=== PATIENT | male | born 1945 | race Caucasian/White ===

== ENCOUNTER → 2017-06-14 | Outpatient (CLI) | payer MEDICARE, MEDICAID, SELFPAY | PROVIDERS: Family Provider Family Medicine; Visit Provider Internal Medicine | DX: R60.9 Edema, unspecified (principal); I25.10 Atherosclerotic heart disease of native coronary artery without angina pectoris; R94.31 Abnormal electrocardiogram [ECG] [EKG] | CPT/HCPCS: 93306 ==

== ENCOUNTER 2017-07-06 22:48 | Emergency (ER) | payer MEDICARE, MEDICAID, SELFPAY ==
[2017-07-06 22:49] VITALS: BP 134/74; PULSE 97; RESP 18; TEMP 36.8; O2SAT 97; BMI 28.1
--- NOTE | 2017-07-06 22:59 | XR_ITS ---
XR chest 2V HISTORY: ITS.REASON: chest pain ORDERING PHYSICIAN: Zaid Jimenez MD PATIENT AGE: 71 years COMPARISON: Multiple previous exams FINDINGS: Mild cardiomegaly without failure.. There are increased markings in the left lung base posteriorly consistent atelectasis and/or infiltrate. The remaining lungs are clear. There is a bone plate over the lower cervical spine.. No acute bony abnormalities. IMPRESSION: Left basilar airspace disease with mild cardiomegaly
[2017-07-06 23:12] LABS: Basophils # 0.1 K/mm3 (0-0.2); Basophils % 0.4 % (0.1-2.0); Eosinophils # 0.1 K/mm3 (0.0-0.4); Eosinophils % 0.9 % (0.1-12.0); Hematocrit 31.6 % (42.0-52.0); Hemoglobin 10.3 g/dL (14.1-18.0); Lymphocytes # 1.5 K/mm3 (0.7-4.5); Lymphocytes % 9.7 K/mm3 (10-50); Mean Corpuscular HGB Conc 32.7 g/dL (31.8-35.4); Mean Corpuscular Hemoglobin 30.7 pg (27.0-31.2); Mean Corpuscular Volume 93.8 fl (80-94); Mean Platelet Volume 8.6 fl (7.4-10.4); Monocytes # 1.2 K/mm3 (0.1-1.0); Monocytes % 7.8 % (1.7-9.3); Neutrophils # 12.5 K/mm3 (1.8-7.8); Neutrophils % 81.2 % (37.0-80.0); Platelet Count 408 K/mm3 (142-424); Red Blood Count 3.37 M/mm3 (4.60-6.20); Red Cell Distribution Width 15.4 % (11.5-17.5); White Blood Count 15.4 K/mm3 (4.8-10.8)
[2017-07-06 23:15] LABS: MANUAL DIFFERENTIAL MANUAL DIFFERENTIAL (MANUAL DIFF)
[2017-07-06 23:30] LABS: Blood Urea Nitrogen 39 mg/dL (7-18); Carbon Dioxide 26 mmol/L (21.0-32.0); Chloride 100 mmol/L (98-107); Creatinine Clearance Estimated 38 mL/min (0-300); Creatinine,Serum 2.04 mg/dL (0.70-1.30); Estimated Glomerular Filt Rate 32 ml/min (>60); GFR (African American) 39 ML/MIN (>60); Glucose 178 mg/dL (74-106); Sodium 135 mmol/L (136-145); Troponin I < 0.02 ng/ml (0.00-0.06)
[2017-07-06 23:47] VITALS: BP 130/68; PULSE 88; RESP 17; O2SAT 95
--- NOTE | 2017-07-07 00:32 | HMH.EDCP ---
ED Disposition Clinical Impression: Stable angina, Renal insufficiency Disposition: Home, Self-Care Condition on Discharge: Good Instructions: DI for Angina Additional Instructions: recheck if needed and see card in and and keep appt with dr pineda as planned Referrals: Rayshawn Pineda MD [Primary Care Provider] - - Critical Care Critical Care Time: No Attestation: On 07/06/17, the high probability of a clinically significant, sudden or life threatening deterioration of the following system(s) required my full and direct attention, intervention and personal management. The time I documented below is in addition to time spent performing reported procedures but includes the following listed in this critical care notation. Medical Decision Making - Medical Records Medical records reviewed: Yes: I reviewed the patient's medical records. Vital Signs: 07/06/17 22:49 07/06/17 23:47 Temperature 98.2 F Temperature Source Oral Pulse Rate [Left Radial] 97 H 88 Respiratory Rate 18 17 Blood Pressure [Right Arm] 134/74 130/68 Blood Pressure Mean [Right Arm] 94 88 Blood Pressure Source [Right Arm] Automatic Cuff Automatic Cuff Blood Pressure Position [Right Arm] Supine Sitting 02 Sat by Pulse Oximetry 97 95 Oxygen Delivery Method Room Air Room Air - Lab Data Lab results reviewed: Yes: I reviewed the patient's lab results. Lab Results 07/06/17 23:05: WBC 15.4 H, RBC 3.37 L, Hgb 10.3 L, Hct 31.6 L, MCV 93.8, MCH 30.7, MCHC 32.7, RDW 15.4, Plt Count 408, MPV 8.6, Neut % (Auto) 81.2 H, Lymph % (Auto) 9.7 L, [place] % (Auto) 7.8, Eos % (Auto) 0.9, Baso % (Auto) 0.4, Neut # (Auto) 12.5 H, Lymph # (Auto) 1.5, [place] # (Auto) 1.2 H, Eos # (Auto) 0.1, Baso # (Auto) 0.1, Total Counted 100, Neutrophils % (Manual) 78 H, Lymphocytes % (Manual) 16, Monocytes % (Manual) 2, Eosinophils % (Manual) 4 H, Platelet Estimate Normal, Anisocytosis 1+ 07/06/17 23:05: Sodium 135 L, Potassium 4.0, Chloride 100, Carbon Dioxide 26, Anion Gap 13.0, BUN 39 H, Creatinine 2.04 H, Estimated Creat Clear 38, Estimated GFR 32 L, Est GFR ( Amer) 39 L, Glucose 178 H, Troponin I < 0.02 Result diagrams: 07/06/17 23:05 07/06/17 23:05 Orders (Tests/Meds): ED MEDICATIONS Discontinued Medications Generic Name Dose Route Start Last Admin Trade Name Freq PRN Reason Stop Dose Admin Aspirin 324 mg 07/06/17 22:58 07/06/17 23:36 Aspirin 81mg Chewable Tablet PO 07/06/17 22:59 324 mg ONCE ONE Administration Nitroglycerin 0.4 mg 07/06/17 22:58 Nitrostat 0.4mg Sl Tablet SL 07/07/17 22:59 [id number] PRN Chest Pain ORDERS Category Date Time Status XR chest 2V Stat Exams 07/06/17 22:59 Taken ECG Request by /Shital Stat Y 07/06/17 22:59 Ordered - Radiology Data #1 Image(s): Chest Image Reviewed: Yes I reviewed the patient's radiology image Preliminary Findings: Abnormal (chronic changes ) - ECG Data Tracing #1 I reviewed this ECG and interpreted as documented below: Ischemic changes: non-specific ST-T wave changes - Physician Consults Physician Consulted: won Reason -: Pt condition - Levon Inquiry Pt receiving controlled substance: No Chest Pain HPI - General Chief Complaint: Chest Pain Stated Complaint: chest pain Time Seen by Provider: 07/07/17 00:32 Mode of Arrival: Ambulatory Source of Information: Patient, Relative, Medical Record Limitations: No Limitations Description of Symptoms (Recalled from ER Triage Doc. by RN): left chest pain - History of Present Illness HPI narrative: pt with known ht dis with several episodes of chest pain today -last stent august 2016 complaint: chest pain indicative of cardiac Onset (ago): hour(s) Duration: intermittent Pain location: left chest Severity: similar to previous episodes Quality: sharp Relieving factors: nothing Risk Factors for CAD: Diabetes Treatments prior to or on arrival for Cardiac Chest Pain: none - Related Data P
[2017-07-07 00:39] LABS: Eosinophils % 4 % (0-3); Lymphocytes % 16 % (10-50); Monocytes % 2 % (2-9); Neutrophils % 78 % (42-76); Platelet Estimate Normal; Total Cells Counted 100
--- NOTE | 2017-07-07 00:39 | ED_ITS ---
ED Disposition Clinical Impression: Stable angina, Renal insufficiency Disposition: Home, Self-Care Condition on Discharge: Good Instructions: DI for Angina Additional Instructions: recheck if needed and see card in and and keep appt with dr pineda as planned Referrals: Rayshawn Pineda MD [Primary Care Provider] - - Critical Care Critical Care Time: No Attestation: On 07/06/17, the high probability of a clinically significant, sudden or life threatening deterioration of the following system(s) required my full and direct attention, intervention and personal management. The time I documented below is in addition to time spent performing reported procedures but includes the following listed in this critical care notation. Medical Decision Making - Medical Records Medical records reviewed: Yes: I reviewed the patient's medical records. Vital Signs: 07/06/17 22:49 07/06/17 23:47 Temperature 98.2 F Temperature Source Oral Pulse Rate [Left Radial] 97 H 88 Respiratory Rate 18 17 Blood Pressure [Right Arm] 134/74 130/68 Blood Pressure Mean [Right Arm] 94 88 Blood Pressure Source [Right Arm] Automatic Cuff Automatic Cuff Blood Pressure Position [Right Arm] Supine Sitting 02 Sat by Pulse Oximetry 97 95 Oxygen Delivery Method Room Air Room Air - Lab Data Lab results reviewed: Yes: I reviewed the patient's lab results. Lab Results 07/06/17 23:05: WBC 15.4 H, RBC 3.37 L, Hgb 10.3 L, Hct 31.6 L, MCV 93.8, MCH 30.7, MCHC 32.7, RDW 15.4, Plt Count 408, MPV 8.6, Neut % (Auto) 81.2 H, Lymph % (Auto) 9.7 L, [place] % (Auto) 7.8, Eos % (Auto) 0.9, Baso % (Auto) 0.4, Neut # ( Auto) 12.5 H, Lymph # (Auto) 1.5, [place] # (Auto) 1.2 H, Eos # (Auto) 0.1, Baso # (Auto) 0.1, Total Counted 100, Neutrophils % (Manual) 78 H, Lymphocytes % ( Manual) 16, Monocytes % (Manual) 2, Eosinophils % (Manual) 4 H, Platelet Estimate Normal, Anisocytosis 1+ 07/06/17 23:05: Sodium 135 L, Potassium 4.0, Chloride 100, Carbon Dioxide 26, Anion Gap 13.0, BUN 39 H, Creatinine 2.04 H, Estimated Creat Clear 38, Estimated GFR 32 L, Est GFR ( Amer) 39 L, Glucose 178 H, Troponin I < 0.02 Result diagrams: 07/06/17 23:05 07/06/17 23:05 Orders (Tests/Meds): ED MEDICATIONS Discontinued Medications Generic Name Dose Route Start Last Admin Trade Name Freq PRN Reason Stop Dose Admin Aspirin 324 mg 07/06/17 22:58 07/06/17 23:36 Aspirin 81mg Chewable Tablet PO 07/06/17 22:59 324 mg ONCE ONE Administration Nitroglycerin 0.4 mg 07/06/17 22:58 Nitrostat 0.4mg Sl Tablet SL 07/07/17 22:59 [id number] PRN Chest Pain ORDERS Category Date Time Status XR chest 2V Stat Exams 07/06/17 22:59 Taken ECG Request by /Shital Stat Y 07/06/17 22:59 Ordered - Radiology Data #1 Image(s): Chest Image Reviewed: Yes I reviewed the patient's radiology image Preliminary Findings: Abnormal (chronic changes ) - ECG Data Tracing #1 I reviewed this ECG and interpreted as documented below: Ischemic changes: non-specific ST-T wave changes - Physician Consults Physician Consulted: won Reason -: Pt condition - Levon Inquiry Pt receiving controlled substance: No Chest Pain HPI - General Chief Complaint: Chest Pain Stated Complaint: chest pain Time Seen by Provider:
[2017-07-07 00:40] LABS: Anisocytosis 1+
[2017-07-07 00:51] VITALS: BP 138/73; PULSE 96; RESP 24; O2SAT 98
== END 2017-07-07 01:07 | disposition home or self-care (01) ==
PROVIDERS: Emergency Provider Emergency Medicine; Family Provider Family Medicine; PCP Family Medicine
DX: R07.9 Chest pain, unspecified (principal); I20.8 Other forms of angina pectoris; I10 Essential (primary) hypertension; Z87.891 Personal history of nicotine dependence; E11.65 Type 2 diabetes mellitus with hyperglycemia; Z79.84 Long term (current) use of oral hypoglycemic drugs; Z79.899 Other long term (current) drug therapy; Z88.8 Allergy status to other drugs, medicaments and biological substances
CPT/HCPCS: 71046; 80048; 84484; 85007; 85025; 93005; 93041; 99284

== ENCOUNTER → 2017-07-15 11:00 | Outpatient (CLI) | payer MEDICARE, MEDICAID, SELFPAY ==
[2017-07-15 16:55] LABS: Basophils # 0.1 K/mm3 (0-0.2); Basophils % 0.7 % (0.1-2.0); Eosinophils # 0.2 K/mm3 (0.0-0.4); Eosinophils % 1.6 % (0.1-12.0); Hematocrit 33.8 % (42.0-52.0); Hemoglobin 10.8 g/dL (14.1-18.0); Lymphocytes # 1.7 K/mm3 (0.7-4.5); Lymphocytes % 16.2 K/mm3 (10-50); Mean Corpuscular Hemoglobin 30.3 pg (27.0-31.2); Mean Corpuscular Volume 94.8 fl (80-94); Mean Platelet Volume 7.2 fl (7.4-10.4); Monocytes # 0.8 K/mm3 (0.1-1.0); Monocytes % 7.6 % (1.7-9.3); Neutrophils # 7.8 K/mm3 (1.8-7.8); Neutrophils % 73.8 % (37.0-80.0); Platelet Count 607 K/mm3 (142-424); Red Blood Count 3.57 M/mm3 (4.60-6.20); Red Cell Distribution Width 15.1 % (11.5-17.5); White Blood Count 10.5 K/mm3 (4.8-10.8)
== END ==
PROVIDERS: Visit Provider Surgery
DX: K92.2 Gastrointestinal hemorrhage, unspecified (principal)
CPT/HCPCS: 85025

== ENCOUNTER → 2017-07-15 15:02 | Outpatient (CLI) | payer MEDICARE, MEDICAID, SELFPAY | PROVIDERS: PCP Family Medicine; Visit Provider Surgery | DX: K92.2 Gastrointestinal hemorrhage, unspecified (principal) ==

== ENCOUNTER 2017-08-06 08:53 | Observation (INO) | payer MEDICARE, MEDICAID, SELFPAY ==
[2017-08-06] VITALS (9 sets, daily range): BP systolic 91–143; BP diastolic 49–91; PULSE 84–100; RESP 12–20; TEMP 36.6–36.7; O2SAT 95–98; BMI 25.2; BMI 27.1
--- NOTE | 2017-08-06 09:05 | CT_ITS ---
CT abdomen pelvis wo con CLINICAL INDICATION: ITS.REASON: rectal bleeding with LLQ tenderness ORDERING PHYSICIAN: Ga Burns MD PATIENT AGE: 72 years COMPARISON: 05/13/2017 TECHNIQUE: Axial images obtained with sagittal and coronal reformats. PROCEDURE: Oral Contrast: None IV Contrast: None . FINDINGS: Chronic changes in the left lung base. There is mild thickening of the pericardium. Coronary artery calcifications are present. No focal liver lesion. Left lobe of the liver is somewhat prominent. No calcified gallstones. The spleen, adrenal glands, and pancreas show no acute finding. There are scattered calcifications in the pancreas suggesting chronic pancreatitis. Right renal cyst once again noted. There are bilateral renal calcifications which are felt to be vascular. No hydronephrosis. 2 cm left renal cyst. There is mild stranding of perinephric renal fat bilaterally which is nonspecific. No intestinal obstruction or free air is evident. No evidence of diverticulitis or appendicitis. Hyperdensity is present within the appendix and could be related to prior contrast administration or appendicoliths. No appendiceal inflammation however apparent. Urinary bladder has an unremarkable appearance. No pelvic mass focal inflammatory change or abnormal fluid collection. Degenerative change lumbar spine. IMPRESSION: 1. No acute abdominal or pelvic findings. 2. Bilateral renal cysts unchanged. 3. Coronary artery disease with mild thickening of the pericardium
--- NOTE | 2017-08-06 09:08 | HMH.EDGIBL ---
ED Disposition Clinical Impression: Rectal bleeding, External hemorrhoids, Coagulopathy, Hemorrhoids CAD (coronary artery disease) Qualifiers: Associated angina: without angina GI bleeding Qualifiers: GI bleed type/associated pathology: unspecified gastrointestinal hemorrhage type Qualified Code(s): K92.2 - Gastrointestinal hemorrhage, unspecified Disposition: Home, Self-Care Condition on Discharge: Good Additional Instructions: I called Dr. Jimenez who agreed to admit for Dr. Tinsley. I called Dr. Garcia who agreed to stop his Effient. The patient and his daughter are agreeable for admission. Referrals: Rayshawn Tinsley MD [Primary Care Provider] - - Critical Care Critical Care Time: No Attestation: On , the high probability of a clinically significant, sudden or life threatening deterioration of the following system(s) required my full and direct attention, intervention and personal management. The time I documented below is in addition to time spent performing reported procedures but includes the following listed in this critical care notation. Medical Decision Making - Medical Records Medical records reviewed: Yes: I reviewed the patient's medical records. MR Comment: I reviewed his prior labs and his hemoglobin in June was 10, his creatinine was above two, although I would like to scan him with IV contrast but this will shut down his kidney. Vital Signs: 08/06/17 08:57 08/06/17 09:32 08/06/17 09:46 Temperature Source Oral Pulse Rate [Orthostatic Lying Right Brachial] 95 H Pulse Rate [Orthostatic Sitting Right Brachial] 100 H Pulse Rate [Orthostatic Standing Right Brachial] 99 H Pulse Rate [Right Brachial] 95 H 98 H Respiratory Rate 14 14 Blood Pressure [Orthostatic Lying Right Arm] 139/72 Blood Pressure [Orthostatic Sitting Right Arm] 137/66 Blood Pressure [Orthostatic Standing Right Arm] 130/59 Blood Pressure [Right Arm] 139/72 143/91 Blood Pressure Mean [Right Arm] 94 108 Blood Pressure Source [Right Arm] Automatic Cuff Automatic Cuff Blood Pressure Position [Right Arm] Sitting Sitting 02 Sat by Pulse Oximetry 98 98 Oxygen Delivery Method Room Air Room Air 08/06/17 10:04 08/06/17 10:54 Temperature Source Pulse Rate [Orthostatic Lying Right Brachial] Pulse Rate [Orthostatic Sitting Right Brachial] Pulse Rate [Orthostatic Standing Right Brachial] Pulse Rate [Right Brachial] 87 88 Respiratory Rate 14 12 Blood Pressure [Orthostatic Lying Right Arm] Blood Pressure [Orthostatic Sitting Right Arm] Blood Pressure [Orthostatic Standing Right Arm] Blood Pressure [Right Arm] 91/49 100/64 Blood Pressure Mean [Right Arm] 63 76 Blood Pressure Source [Right Arm] Automatic Cuff Manual Cuff/ Auscultation Blood Pressure Position [Right Arm] Supine Sitting 02 Sat by Pulse Oximetry 95 96 Oxygen Delivery Method Room Air Room Air The patient had negative orthostatics. - Lab Data Lab Results 08/06/17 09:05: Stool Occult Blood Positive A 08/06/17 09:23: WBC 12.5 H, RBC 4.03 L, Hgb 12.2 L, Hct 38.2 L, MCV 94.8 H, MCH 30.2, MCHC 31.9, RDW 15.6, Plt Count 287, MPV 8.1, Neut % (Auto) 64.6, Lymph % (Auto) 21.5, [place] % (Auto) 10.0 H, Eos % (Auto) 3.5, Baso % (Auto) 0.4, Neut # (Auto) 8.1 H, Lymph # (Auto) 2.7, [place] # (Auto) 1.2 H, Eos # (Auto) 0.4, Baso # (Auto) 0.1 08/06/17 09:23: PT 10.7, INR 0.99, APTT 27.7 08/06/17 09:23: Sodium 138, Potassium 4.0, Chloride 100, Carbon Dioxide 23, Anion Gap 19.0 H, BUN 40 H, Creatinine 2.34 H, Estimated Creat Clear 33, Estimated GFR 27 L, Est GFR ( Amer) 33 L, Glucose 126 H, Calcium 9.1, Total Bilirubin 0.4, AST 21, ALT 49, Alkaline Phosphatase 119 H, Total Protein 8.0, Albumin 3.9, Globulin 4.1 H, Albumin/Globulin Ratio 1.0 L 08/06/17 09:23: Magnesium 1.8 Result diagrams: 08/06/17 09:23 08/06/17 09:23 Orders (Tests/Meds): ED MEDICATIONS Discontinued Medications Generic Name Dose Route Start Last Admin Trade Name Freq
--- NOTE | 2017-08-06 09:13 | ED_ITS ---
ED Disposition Clinical Impression: Rectal bleeding, External hemorrhoids, Coagulopathy, Hemorrhoids CAD (coronary artery disease) Qualifiers: Associated angina: without angina GI bleeding Qualifiers: GI bleed type/associated pathology: unspecified gastrointestinal hemorrhage type Qualified Code(s): K92.2 - Gastrointestinal hemorrhage, unspecified Disposition: Home, Self-Care Condition on Discharge: Good Additional Instructions: I called Dr. Jimenez who agreed to admit for Dr. Tinsley. I called Dr. Garcia who agreed to stop his Effient. The patient and his daughter are agreeable for admission. Referrals: Ryashawn Tinsley MD [Primary Care Provider] - - Critical Care Critical Care Time: No Attestation: On , the high probability of a clinically significant, sudden or life threatening deterioration of the following system(s) required my full and direct attention, intervention and personal management. The time I documented below is in addition to time spent performing reported procedures but includes the following listed in this critical care notation. Medical Decision Making - Medical Records Medical records reviewed: Yes: I reviewed the patient's medical records. MR Comment: I reviewed his prior labs and his hemoglobin in June was 10, his creatinine was above two, although I would like to scan him with IV contrast but this will shut down his kidney. Vital Signs: 08/06/17 08:57 08/06/17 09:32 08/06/17 09:46 Temperature Source Oral Pulse Rate [Orthostatic Lying Right Brachial] 95 H Pulse Rate [Orthostatic Sitting Right Brachial] 100 H Pulse Rate [Orthostatic Standing Right Brachial] 99 H Pulse Rate [Right Brachial] 95 H 98 H Respiratory Rate 14 14 Blood Pressure [Orthostatic Lying Right Arm] 139/72 Blood Pressure [Orthostatic Sitting Right Arm] 137/66 Blood Pressure [Orthostatic Standing Right Arm] 130/59 Blood Pressure [Right Arm] 139/72 143/91 Blood Pressure Mean [Right Arm] 94 108 Blood Pressure Source [Right Arm] Automatic Cuff Automatic Cuff Blood Pressure Position [Right Arm] Sitting Sitting 02 Sat by Pulse Oximetry 98 98 Oxygen Delivery Method Room Air Room Air 08/06/17 10:04 08/06/17 10:54 Temperature Source Pulse Rate [Orthostatic Lying Right Brachial] Pulse Rate [Orthostatic Sitting Right Brachial] Pulse Rate [Orthostatic Standing Right Brachial] Pulse Rate [Right Brachial] 87 88 Respiratory Rate 14 12 Blood Pressure [Orthostatic Lying Right Arm] Blood Pressure [Orthostatic Sitting Right Arm] Blood Pressure [Orthostatic Standing Right Arm] Blood Pressure [Right Arm] 91/49 100/64 Blood Pressure Mean [Right Arm] 63 76 Blood Pressure Source [Right Arm] Automatic Cuff Manual Cuff/ Auscultation Blood Pressure Position [Right Arm] Supine Sitting 02 Sat by Pulse Oximetry 95 96 Oxygen Delivery Method Room Air Room Air The patient had negative orthostatics. - Lab Data Lab Results 08/06/17 09:05: Stool Occult Blood Positive A 08/06/17 09:23: WBC 12.5 H, RBC 4.03 L, Hgb 12.2 L, Hct 38.2 L, MCV 94.8 H, MCH 30.2, MCHC 31.9, RDW 15.6, Plt Count 287, MPV 8.1, Neut % (Auto) 64.6, Lymph % ( Auto) 21.5, [place] % (Auto) 10.0 H, Eos % (Auto) 3.5, Baso % (Auto) 0.4, Neut # ( Auto) 8.1 H, Lymph # (Auto) 2.7, [place] # (Auto) 1.2 H, Eos # (Auto) 0.4, Baso # ( Auto) 0.1 08/06/17
[2017-08-06 09:20] LABS: Occult Blood,Stool Positive (Negative)
[2017-08-06 09:32] LABS: Basophils # 0.1 K/mm3 (0-0.2); Basophils % 0.4 % (0.1-2.0); Eosinophils # 0.4 K/mm3 (0.0-0.4); Eosinophils % 3.5 % (0.1-12.0); Hematocrit 38.2 % (42.0-52.0); Hemoglobin 12.2 g/dL (14.1-18.0); Lymphocytes # 2.7 K/mm3 (0.7-4.5); Lymphocytes % 21.5 K/mm3 (10-50); Mean Corpuscular HGB Conc 31.9 g/dL (31.8-35.4); Mean Corpuscular Hemoglobin 30.2 pg (27.0-31.2); Mean Corpuscular Volume 94.8 fl (80-94); Mean Platelet Volume 8.1 fl (7.4-10.4); Monocytes # 1.2 K/mm3 (0.1-1.0); Neutrophils # 8.1 K/mm3 (1.8-7.8); Neutrophils % 64.6 % (37.0-80.0); Platelet Count 287 K/mm3 (142-424); Red Blood Count 4.03 M/mm3 (4.60-6.20); Red Cell Distribution Width 15.6 % (11.5-17.5); White Blood Count 12.5 K/mm3 (4.8-10.8)
--- NOTE | 2017-08-06 09:33 | PC.NURSE ---
chris rocha with [facility]. no contrast to be used
[2017-08-06 09:42] LABS: Activated Partial Thrombo Time 27.7 seconds (23.6-34.0); INR 0.99 (0.9-1.1); Prothrombin Time 10.7 seconds (9.4-11.8)
[2017-08-06 09:47] LABS: Alanine Aminotransferase 49 U/L (12-78); Albumin Level 3.9 gm/dL (3.4-5.0); Alkaline Phosphatase 119 U/L (46-116); Bilirubin,Total 0.4 mg/dL (0.2-1.0); Blood Urea Nitrogen 40 mg/dL (7-18); Calcium 9.1 mg/dL (8.5-10.1); Carbon Dioxide 23 mmol/L (21.0-32.0); Chloride 100 mmol/L (98-107); Creatinine Clearance Estimated 33 mL/min (0-300); Creatinine,Serum 2.34 mg/dL (0.70-1.30); Estimated Glomerular Filt Rate 27 ml/min (>60); GFR (African American) 33 ML/MIN (>60); Globulin 4.1 gm/dl (1.3-3.2); Glucose 126 mg/dL (74-106); Sodium 138 mmol/L (136-145)
[2017-08-06 09:50] LABS: Aspartate Amino Transferase 21 U/L (15-37)
[2017-08-06 10:13] LABS: Magnesium 1.8 mg/dL (1.4-2.2)
[2017-08-06 15:43] LABS: Hemoglobin 10.9 g/dL (14.1-18.0)
[2017-08-06 16:38] LABS: Microscopic, Urine URINE MICROSCOPIC (MICROSCOPIC)
[2017-08-06 17:04] LABS: Appearance,Urine CLEAR (Clear); Bilirubin,Urine Negative (Negative); Blood, Urine Negative (Negative); Color,Urine YELLOW (Yellow); Glucose,Urine (UA) Negative (Negative); Ketones,Urine Negative (Negative); Leukocyte Esterase,Urine Negative (Negative); Nitrate,Urine Negative (Negative); PH,Urine 5.5 (5.0-8.5); Protein,Urine Negative (Negative); Urobilinogen,Urine 0.2 EU/dl (0.2)
[2017-08-06 17:24] LABS: Bacteria,Urine Trace /lpf
[2017-08-07 04:00] VITALS: BP 105/54; PULSE 88; RESP 18; TEMP 36.6; O2SAT 94
--- NOTE | 2017-08-07 04:47 | PC.NURSE ---
PT WITH SOME COMPLAINTS EARLY IN SHIFT OF RLQ ABD PAIN THAT HE DESCRIBED SHARP. ENCOURAGE AMBULATION AND TURNING TO OPPOSITE SIDE. PAIN RESOLVED. PT HAD BM THAT WAS LOOSE AND GREENISH IN COLOR. SMALL AMOUNT OF BRIGHT RED BLOOD NOTED IN TOILET. PT HAS SLEPT INTERMITTENTLY. FAMILY MEMBER HAS REMAINED AT [facility]. PT KEPT NPO AFTER MIDNIGHT FOR CONSULT.
[2017-08-07 06:24] LABS: Basophils % 0.3 % (0.1-2.0); Eosinophils # 0.4 K/mm3 (0.0-0.4); Eosinophils % 4.3 % (0.1-12.0); Hemoglobin 10.5 g/dL (14.1-18.0); Lymphocytes # 1.6 K/mm3 (0.7-4.5); Lymphocytes % 19.6 K/mm3 (10-50); Mean Corpuscular HGB Conc 32.7 g/dL (31.8-35.4); Mean Corpuscular Hemoglobin 30.7 pg (27.0-31.2); Mean Platelet Volume 7.8 fl (7.4-10.4); Monocytes # 0.9 K/mm3 (0.1-1.0); Monocytes % 10.9 % (1.7-9.3); Neutrophils # 5.4 K/mm3 (1.8-7.8); Platelet Count 240 K/mm3 (142-424); Red Blood Count 3.41 M/mm3 (4.60-6.20); Red Cell Distribution Width 15.5 % (11.5-17.5); White Blood Count 8.2 K/mm3 (4.8-10.8)
[2017-08-07 06:34] LABS: Anion Gap 14.5 mEq/L (5-15); Blood Urea Nitrogen 27 mg/dL (7-18); Carbon Dioxide 22 mmol/L (21.0-32.0); Chloride 106 mmol/L (98-107); Creatinine Clearance Estimated 45 mL/min (0-300); Creatinine,Serum 1.65 mg/dL (0.70-1.30); Estimated Glomerular Filt Rate 41 ml/min (>60); GFR (African American) 50 ML/MIN (>60); Potassium 3.5 mmoL/L (3.5-5.1); Sodium 139 mmol/L (136-145)
[2017-08-07 07:03] LABS: Glucose 82 mg/dL (74-106)
[2017-08-07 08:00] VITALS: BP 122/64; PULSE 85; RESP 20; TEMP 36.8; O2SAT 96
--- NOTE | 2017-08-07 08:17 | HMH.HP ---
*Admission Date: 08/06/17 *Chief complaint: Lower GI bleeding *History of present illness: 32-year-old male with history of coronary artery disease, peripheral vascular disease, diabetes and GI bleeds presented to the emergency department after onset of bright red blood per rectum during the day. Patient reports diarrhea for the preceding 3 days. Blood would not fill the toilet bowl but was present within the toilet water and was also present on the toilet tissue after wiping. Patient has known internal and external hemorrhoids and most recent colonoscopy was at the end of April. Patient had serial H&H's performed on the emergency department which showed a decrease in the H&H and he was admitted for further observation. He reports one normal stool since admission and one bloody stool since admission. He denies lightheadedness or weakness. He admits to some abdominal discomfort and hunger [facility] History Medical History: Reports:: Chronic Obstructive Pulmonary Disease (COPD), Diabetes Mellitus Type 2, Gastroesophageal Reflux Disease(GERD), Gastrointestinal Bleed, Hypertension, Seizures Denies:: Cancer, Diabetes Mellitus Type 1, MRSA Other Medical History: Reports: Anemia Comment: Internal and external hemorrhoids Amputation: No Fractures: No Comment: Cervical spine surgery - *Social History Educational Level: Completed High School Smoking Status: Former smoker Alcohol Intake: never Alcohol Intake Frequency:: other Substance Use Type: denies use - Psychiatric History Expresses thoughts of harming self/others: None Suicide Plan Description: No Plan *Family Hx:: Hypertension, Diabetes Review of Systems - Review of Systems Review of systems:: pertinent systems reviewed and negative unless documented below - Constitutional Denies body ache(s), Denies chills - *Cardiovascular Denies chest pain, Denies chest pain at rest, Denies chest pain with activity - *Respiratory Denies change in phlegm color, Denies chest congestion, Denies cough - *Gastrointestinal Reports abdominal pain, Reports bloating, Reports change in stools, Denies belching Meds Home Medications Medication Instructions Recorded Confirmed Type Atorvastatin Calcium [Atorvastatin 80 mg PO DAILY 07/06/17 08/06/17 History 80mg Tab] [place] Chloride [Urecholine] 10 mg PO TID 07/06/17 08/06/17 History Cholecalciferol (Vitamin D3) 1,000 unit PO DAILY 07/06/17 08/06/17 History [Vitamin D3 1,000 Unit Cap] Cyclobenzaprine HCl 10 mg PO DAILY 07/06/17 08/06/17 History [Cyclobenzaprine 10mg Tab] Dexlansoprazole [Dexilant] 1 tab PO DAILY 07/06/17 08/06/17 History Docusate Sodium [Colace] 100 mg PO DAILY 07/06/17 08/06/17 History Furosemide [Furosemide 20mg Tab] 1 tab PO DAILY 07/06/17 08/06/17 History Glimepiride 1 mg PO DAILY 07/06/17 08/06/17 History Linaclotide [Linzess] 1 cap PO DAILY 07/06/17 08/06/17 History Lisinopril/Hydrochlorothiazide 2 tab PO DAILY 07/06/17 08/06/17 History [Lisinopril-Hctz 20-12.5 mg Tab] One Daily Complete 1 tab PO DAILY 07/06/17 08/06/17 History Prasugrel HCl [Prasugrel 10mg 10 mg PO DAILY 07/06/17 08/06/17 History Tab] Sucralfate [Sucralfate 1gm 1 tab PO QID 07/06/17 08/06/17 History Tab] Tamsulosin HCl [Flomax 0.4mg 1 tab PO DAILY 07/06/17 08/06/17 History capsule] levETIRAcetam [Levetiracetam] 0.5 tab PO BID 07/06/17 08/06/17 History Hydrocodone/Acetaminophen 1 each PO TID 08/06/17 08/06/17 History [Hydrocodon-Acetaminoph 7.5-325] Allergies Allergy/AdvReac Type Severity Reaction Status Date / Time baclofen Allergy Severe SWELLING Verified 07/19/17 09:07 gabapentin [From NEURONTIN] Allergy Mild Verified 07/19/17 09:07 metformin [METFORMIN] Allergy Mild Verified 07/19/17 09:07 morphine [MORPHINE] Allergy Mild Verified 07/19/17 09:07 Exam Vital signs and Labs for Last 24 Hours: Temp Pulse Resp BP Pulse Ox 97.9 F 88 18 105/54 94 L 08/07/17 04:00 08/07/17 04:00 02
--- NOTE | 2017-08-07 08:20 | P.HP_ITS ---
*Admission Date: 08/06/17 *Chief complaint: Lower GI bleeding *History of present illness: 32-year-old male with history of coronary artery disease, peripheral vascular disease, diabetes and GI bleeds presented to the emergency department after onset of bright red blood per rectum during the day. Patient reports diarrhea for the preceding 3 days. Blood would not fill the toilet bowl but was present within the toilet water and was also present on the toilet tissue after wiping. Patient has known internal and external hemorrhoids and most recent colonoscopy was at the end of April. Patient had serial H&H's performed on the emergency department which showed a decrease in the H&H and he was admitted for further observation. He reports one normal stool since admission and one bloody stool since admission. He denies lightheadedness or weakness. He admits to some abdominal discomfort and hunger [facility] History Medical History: Reports:: Chronic Obstructive Pulmonary Disease (COPD), Diabetes Mellitus Type 2, Gastroesophageal Reflux Disease(GERD), Gastrointestinal Bleed, Hypertension, Seizures Denies:: Cancer, Diabetes Mellitus Type 1, MRSA Other Medical History: Reports: Anemia Comment: Internal and external hemorrhoids Amputation: No Fractures: No Comment: Cervical spine surgery - *Social History Educational Level: Completed High School Smoking Status: Former smoker Alcohol Intake: never Alcohol Intake Frequency:: other Substance Use Type: denies use - Psychiatric History Expresses thoughts of harming self/others: None Suicide Plan Description: No Plan *Family Hx:: Hypertension, Diabetes Review of Systems - Review of Systems Review of systems:: pertinent systems reviewed and negative unless documented below - Constitutional Denies body ache(s), Denies chills - *Cardiovascular Denies chest pain, Denies chest pain at rest, Denies chest pain with activity - *Respiratory Denies change in phlegm color, Denies chest congestion, Denies cough - *Gastrointestinal Reports abdominal pain, Reports bloating, Reports change in stools, Denies belching Meds Home Medications Medication Instructions Recorded Confirmed Type Atorvastatin Calcium [Atorvastatin 80 mg PO DAILY 07/06/17 08/06/17 History 80mg Tab] [place] Chloride [Urecholine] 10 mg PO TID 07/06/17 08/06/17 History Cholecalciferol (Vitamin D3) 1,000 unit PO DAILY 07/06/17 08/06/17 History [Vitamin D3 1,000 Unit Cap] Cyclobenzaprine HCl 10 mg PO DAILY 07/06/17 08/06/17 History [Cyclobenzaprine 10mg Tab] Dexlansoprazole [Dexilant] 1 tab PO DAILY 07/06/17 08/06/17 History Docusate Sodium [Colace] 100 mg PO DAILY 07/06/17 08/06/17 History Furosemide [Furosemide 20mg Tab] 1 tab PO DAILY 07/06/17 08/06/17 History Glimepiride 1 mg PO DAILY 07/06/17 08/06/17 History Linaclotide [Linzess] 1 cap PO DAILY 07/06/17 08/06/17 History Lisinopril/Hydrochlorothiazide 2 tab PO DAILY 07/06/17 08/06/17 History [Lisinopril-Hctz 20-12.5 mg Tab] One Daily Complete 1 tab PO DAILY 07/06/17 08/06/17 History Prasugrel HCl [Prasugrel 10mg 10 mg PO DAILY 07/06/17 08/06/17 History Tab] Sucralfate [Sucralfate 1gm 1 tab PO QID 07/06/17 08/06/17 History Tab] Tamsulosin HCl [Flomax 0.4mg 1 tab PO DAILY 07/06/17 08/06/17 History capsule] levETIRAcetam [Levetiracetam] 0.5 tab PO BID 07/06/17 08/06/17 History Hydrocodone/Acetaminophen 1 each PO TID 08/06/17 08/06/17 History [[place]
--- NOTE | 2017-08-07 08:33 | HMH.GSCON ---
*Admission Date: 08/06/17 *Chief complaint: Blood in stool *History of present illness: This is a 72-year-old gentleman seen in consultation after presenting to the emergency department with bright red blood per rectum. He presented to the emergency department after onset of bright red blood per rectum during the day. He reports diarrhea for the preceding 3 days. Blood would not fill the toilet bowl but was present within the toilet water and was also present on the toilet tissue after wiping. He has known internal and external hemorrhoids and most recent colonoscopy was at the end of April. Patient had serial H&H's performed on the emergency department which showed a decrease in the H&H and he was admitted for further observation. He reports one normal stool since admission and one bloody stool since admission. He denies lightheadedness or weakness. He admits to some abdominal discomfort and hunger Review of Systems - Constitutional Denies fever(s) - Eyes Denies change in vision - ENT Denies dizziness - *Cardiovascular Denies chest pain - *Respiratory Denies cough - *Gastrointestinal Reports bright, red blood in stools, Denies vomiting [facility] History Medical History: Reports:: Chronic Obstructive Pulmonary Disease (COPD), Diabetes Mellitus Type 2, Gastroesophageal Reflux Disease(GERD), Gastrointestinal Bleed, Hypertension, Seizures Denies:: Cancer, Diabetes Mellitus Type 1, MRSA Other Medical History: Reports: Anemia Amputation: No Fractures: No - *Social History Educational Level: Completed High School Smoking Status: Former smoker Alcohol Intake: never Alcohol Intake Frequency:: other Substance Use Type: denies use - Psychiatric History Expresses thoughts of harming self/others: None Suicide Plan Description: No Plan *Family Hx:: Hypertension, Diabetes Meds Home Medications Medication Instructions Recorded Confirmed Type Atorvastatin Calcium [Atorvastatin 80 mg PO DAILY 07/06/17 08/06/17 History 80mg Tab] Bethanechol Chloride [Urecholine] 10 mg PO TID 07/06/17 08/06/17 History Cholecalciferol (Vitamin D3) 1,000 unit PO DAILY 07/06/17 08/06/17 History [Vitamin D3 1,000 Unit Cap] Cyclobenzaprine HCl 10 mg PO DAILY 07/06/17 08/06/17 History [Cyclobenzaprine 10mg Tab] Dexlansoprazole [Dexilant] 1 tab PO DAILY 07/06/17 08/06/17 History Docusate Sodium [Colace] 100 mg PO DAILY 07/06/17 08/06/17 History Furosemide [Furosemide 20mg Tab] 1 tab PO DAILY 07/06/17 08/06/17 History Glimepiride 1 mg PO DAILY 07/06/17 08/06/17 History Linaclotide [Linzess] 1 cap PO DAILY 07/06/17 08/06/17 History Lisinopril/Hydrochlorothiazide 2 tab PO DAILY 07/06/17 08/06/17 History [Lisinopril-Hctz 20-12.5 mg Tab] One Daily Complete 1 tab PO DAILY 07/06/17 08/06/17 History Prasugrel HCl [Prasugrel 10mg 10 mg PO DAILY 07/06/17 08/06/17 History Tab] Sucralfate [Sucralfate 1gm 1 tab PO QID 07/06/17 08/06/17 History Tab] Tamsulosin HCl [Flomax 0.4mg 1 tab PO DAILY 07/06/17 08/06/17 History capsule] levETIRAcetam [Levetiracetam] 0.5 tab PO BID 07/06/17 08/06/17 History Hydrocodone/Acetaminophen 1 each PO TID 08/06/17 08/06/17 History [Hydrocodon-Acetaminoph 7.5-325] Allergies Allergy/AdvReac Type Severity Reaction Status Date / Time baclofen Allergy Severe SWELLING Verified 07/19/17 09:07 gabapentin [From NEURONTIN] Allergy Mild Verified 07/19/17 09:07 metformin [METFORMIN] Allergy Mild Verified 07/19/17 09:07 morphine [MORPHINE] Allergy Mild Verified 07/19/17 09:07 Exam Vital signs and Labs for Last 24 Hours: Temp Pulse Resp BP Pulse Ox 97.9 F 88 18 105/54 94 L 08/07/17 04:00 08/07/17 04:00 08/07/17 04:00 08/07/17 04:00 08/07/17 04:00 Laboratory Results - last 24 hr 08/06/17 11:25: Blood Type A Negative, Antibody Screen Negative, Crossmatch (AHG) See Detail 08/06/17 15:22: Hgb 10.9 L D, Hct 34.0 L 08/06/17 16:00: Urine Color Yellow, Urine Appearance
--- NOTE | 2017-08-07 08:36 | P.CONS_ITS ---
*Admission Date: 08/06/17 *Chief complaint: Blood in stool *History of present illness: This is a 72-year-old gentleman seen in consultation after presenting to the emergency department with bright red blood per rectum. He presented to the emergency department after onset of bright red blood per rectum during the day. He reports diarrhea for the preceding 3 days. Blood would not fill the toilet bowl but was present within the toilet water and was also present on the toilet tissue after wiping. He has known internal and external hemorrhoids and most recent colonoscopy was at the end of April. Patient had serial H&H's performed on the emergency department which showed a decrease in the H&H and he was admitted for further observation. He reports one normal stool since admission and one bloody stool since admission. He denies lightheadedness or weakness. He admits to some abdominal discomfort and hunger Review of Systems - Constitutional Denies fever(s) - Eyes Denies change in vision - ENT Denies dizziness - *Cardiovascular Denies chest pain - *Respiratory Denies cough - *Gastrointestinal Reports bright, red blood in stools, Denies vomiting [facility] History Medical History: Reports:: Chronic Obstructive Pulmonary Disease (COPD), Diabetes Mellitus Type 2, Gastroesophageal Reflux Disease(GERD), Gastrointestinal Bleed, Hypertension, Seizures Denies:: Cancer, Diabetes Mellitus Type 1, MRSA Other Medical History: Reports: Anemia Amputation: No Fractures: No - *Social History Educational Level: Completed High School Smoking Status: Former smoker Alcohol Intake: never Alcohol Intake Frequency:: other Substance Use Type: denies use - Psychiatric History Expresses thoughts of harming self/others: None Suicide Plan Description: No Plan *Family Hx:: Hypertension, Diabetes Meds Home Medications Medication Instructions Recorded Confirmed Type Atorvastatin Calcium [Atorvastatin 80 mg PO DAILY 07/06/17 08/06/17 History 80mg Tab] Bethanechol Chloride [Urecholine] 10 mg PO TID 07/06/17 08/06/17 History Cholecalciferol (Vitamin D3) 1,000 unit PO DAILY 07/06/17 08/06/17 History [Vitamin D3 1,000 Unit Cap] Cyclobenzaprine HCl 10 mg PO DAILY 07/06/17 08/06/17 History [Cyclobenzaprine 10mg Tab] Dexlansoprazole [Dexilant] 1 tab PO DAILY 07/06/17 08/06/17 History Docusate Sodium [Colace] 100 mg PO DAILY 07/06/17 08/06/17 History Furosemide [Furosemide 20mg Tab] 1 tab PO DAILY 07/06/17 08/06/17 History Glimepiride 1 mg PO DAILY 07/06/17 08/06/17 History Linaclotide [Linzess] 1 cap PO DAILY 07/06/17 08/06/17 History Lisinopril/Hydrochlorothiazide 2 tab PO DAILY 07/06/17 08/06/17 History [Lisinopril-Hctz 20-12.5 mg Tab] One Daily Complete 1 tab PO DAILY 07/06/17 08/06/17 History Prasugrel HCl [Prasugrel 10mg 10 mg PO DAILY 07/06/17 08/06/17 History Tab] Sucralfate [Sucralfate 1gm 1 tab PO QID 07/06/17 08/06/17 History Tab] Tamsulosin HCl [Flomax 0.4mg 1 tab PO DAILY 07/06/17 08/06/17 History capsule] levETIRAcetam [Levetiracetam] 0.5 tab PO BID 07/06/17 08/06/17 History Hydrocodone/Acetaminophen 1 each PO TID 08/06/17 08/06/17 History [Hydrocodon-Acetaminoph 7.5-325] Allergies Allergy/AdvReac Type Severity Reaction Status Date / Time baclofen Allergy Severe SWELLING Verified 07/19/17 09:07 gabapentin [From NEURONTIN] All
--- NOTE | 2017-08-07 09:23 | PC.NURSE ---
CALLED PATIENTS DAUGHTER SEPTEMBER AND ASKED HER TO BRING PATIENTS HOME MEDS SINCE PATIENT IS MEDICARE OBS - SHE WILL BRING THEM IN THIS AM SOMETIME
--- NOTE | 2017-08-07 09:41 | P.CONPHA_ITS ---
[facility] Pharm[facility] VTE Monitoring - Patient Demographics Admission date: 08/07/17 Report Date: 08/07/17 Time: 09:41 Allergies/Adverse Reactions: Patient Allergies baclofen Allergy (Severe, Verified 07/19/17 09:07) SWELLING gabapentin [From NEURONTIN] Allergy (Mild, Verified 07/19/17 09:07) metformin [METFORMIN] Allergy (Mild, Verified 07/19/17 09:07) morphine [MORPHINE] Allergy (Mild, Verified 07/19/17 09:07) Height: 1.73 m Weight: 80.768 kg Patient Problems: Current Active Problems Rectal bleeding (Acute) External hemorrhoids (Acute) Coagulopathy (Acute) CAD (coronary artery disease) (Acute) Hemorrhoids (Acute) GI bleeding (Acute) Lower GI bleed (Acute) - VTE Risk Labs: VTE Related Lab Results Hgb 10.5 g/dL (14.1-18.0) L 08/07/17 06:00 Hct 32.0 % (42.0-52.0) L 08/07/17 06:00 Plt Count 240 K/mm3 (142-424) 08/07/17 06:00 PT 10.7 seconds (9.4-11.8) 08/06/17 09:23 INR 0.99 (0.9-1.1) 08/06/17 09:23 APTT 27.7 seconds (23.6-34.0) 08/06/17 09:23 BUN 27 mg/dL (7-18) H D 08/07/17 06:00 Creatinine 1.65 mg/dL (0.70-1.30) H D 08/07/17 06:00 Estimated Creat Clear 45 mL/min (0-300) 08/07/17 06:00 VTE Score: 1 VTE Risk Level: Very Low Risk - Prophylaxis Types of VTE Prophylaxis: Not Applicable Location of Applied Device: Not Applicable - VTE Diagnosis Confirmed Comment: ALEXANDRA UMAÑA
[2017-08-07 15:43] VITALS: BP 97/49; PULSE 90; RESP 20; TEMP 36.9; O2SAT 98
[2017-08-07 16:18] LABS: Hematocrit 32.2 % (42.0-52.0); Hemoglobin 10.5 g/dL (14.1-18.0)
--- NOTE | 2017-08-07 18:26 | PC.NURSE ---
PATIENT HAS BEEN SITTING IN CHAIR VISITING WITH FAMILY THIS SHIFT. HE HAS BEEN AMBULATING TO AND FROM THE BATHROOM WITH NO ASSISTANCE. C/O CHRONIC PAIN IN HIS RIGHT SHOULDER AND OCCASIONAL PAIN AND CRAMPING IN HIS RIGHT LOWER ABDOMEN. HE HAS NO GAURDING OF ABDOMEN. TEDS ARE IN PLACE AT THIS TIME. PATIENT STATES HE IS STILL HAVING SOME BRIGHT RED BLEEDING ON TOILET PAPER WHEN HE IS USING THE RESTROOM. CALL LIGHT WITHIN REACH WILL CONTINUE TO MONITOR.
--- NOTE | 2017-08-07 19:58 | PC.NURSE ---
REPORT GIVEN TO HARLEY ZAMORA RN
[2017-08-07 20:00] VITALS: BP 112/66; PULSE 88; RESP 20; TEMP 36.4; O2SAT 98
[2017-08-08 04:00] VITALS: BP 92/50; PULSE 84; RESP 18; TEMP 36.8; O2SAT 96
--- NOTE | 2017-08-08 04:44 | PC.NURSE ---
PT HAS SLEPT. NO COMPLAINTS. DAUGHTER HAS REMAINED AT [facility].
[2017-08-08 07:09] LABS: Basophils # 0.1 K/mm3 (0-0.2); Basophils % 0.7 % (0.1-2.0); Eosinophils # 0.4 K/mm3 (0.0-0.4); Hematocrit 32.6 % (42.0-52.0); Hemoglobin 10.4 g/dL (14.1-18.0); Lymphocytes % 23.5 K/mm3 (10-50); Mean Corpuscular HGB Conc 31.8 g/dL (31.8-35.4); Mean Corpuscular Hemoglobin 30.1 pg (27.0-31.2); Mean Corpuscular Volume 94.5 fl (80-94); Mean Platelet Volume 8.3 fl (7.4-10.4); Monocytes # 0.9 K/mm3 (0.1-1.0); Monocytes % 10.1 % (1.7-9.3); Neutrophils # 5.1 K/mm3 (1.8-7.8); Neutrophils % 60.7 % (37.0-80.0); Platelet Count 220 K/mm3 (142-424); Red Blood Count 3.45 M/mm3 (4.60-6.20); Red Cell Distribution Width 15.6 % (11.5-17.5); White Blood Count 8.5 K/mm3 (4.8-10.8)
[2017-08-08 07:14] LABS: Anion Gap 13.7 mEq/L (5-15); Blood Urea Nitrogen 27 mg/dL (7-18); Carbon Dioxide 25 mmol/L (21.0-32.0); Chloride 104 mmol/L (98-107); Creatinine Clearance Estimated 40 mL/min (0-300); Creatinine,Serum 1.87 mg/dL (0.70-1.30); Estimated Glomerular Filt Rate 35 ml/min (>60); GFR (African American) 43 ML/MIN (>60); Glucose 90 mg/dL (74-106); Potassium 3.7 mmoL/L (3.5-5.1); Sodium 139 mmol/L (136-145)
--- NOTE | 2017-08-08 07:20 | HMH.DCSUM ---
General - General Admission date: 08/06/17 Discharge date: 08/08/17 HPI HPI: This is a 72-year-old gentleman seen in consultation after presenting to the emergency department with bright red blood per rectum. He presented to the emergency department after onset of bright red blood per rectum during the day. He reports diarrhea for the preceding 3 days. Blood would not fill the toilet bowl but was present within the toilet water and was also present on the toilet tissue after wiping. He has known internal and external hemorrhoids and most recent colonoscopy was at the end of April. Patient had serial H&H's performed on the emergency department which showed a decrease in the H&H and he was admitted for further observation. He reports one normal stool since admission and one bloody stool since admission. He denies lightheadedness or weakness. He admits to some abdominal discomfort and hunger Objective Vital signs: Temp Pulse Resp BP Pulse Ox 98.2 F 84 18 92/50 96 08/08/17 04:00 08/08/17 04:00 08/08/17 04:00 08/08/17 04:00 08/08/17 04:00 Narrative: Patient is awake and alert. Abdomen is soft and distended with active bowel sounds. Hospital Course Hospital Course: Patient was admitted for monitoring of H&H is. After initial presentation with hemoglobin of 12-1/2 he received IV fluids. Hemoglobin dropped to 10-1/2 and remained at this level for the rest of hospitalization. Actually believe the patient was dehydrated on admission due to his diarrhea and was therefore hemoconcentrated. His creatinine was significantly elevated at 2.5. Once he received IV fluids he returned to his baseline. Hemoglobin performed 3 weeks ago was 10.8. Because Dr. Charlton is familiar with the patient he was consulted as he performed his colonoscopy 3 months ago. He believed the source of bleeding was hemorrhoids as this was the only significant finding on colonoscopy. It was recommended that perhaps the patient should see a level vial inspector due to his ongoing GI issues which not only include hemorrhoids but irregular bowel habits, abdominal bloating, cramping. Dr. Carey was consulted on the day of discharge. Patient was discharged after consultation Results Labs on day of discharge: Labs from last 24 hours 08/08/17 08/07/17 06:15 16:07 WBC 8.5 RBC 3.45 L Hgb 10.4 L 10.5 L Hct 32.6 L 32.2 L MCV 94.5 H MCH 30.1 MCHC 31.8 RDW 15.6 Plt Count 220 MPV 8.3 Neut % (Auto) 60.7 Lymph % (Auto) 23.5 [place] % (Auto) 10.1 H Eos % (Auto) 5.0 Baso % (Auto) 0.7 Neut # (Auto) 5.1 Lymph # (Auto) 2.0 Grant # (Auto) 0.9 Eos # (Auto) 0.4 Baso # (Auto) 0.1 Laboratory Results - last 72 hr 08/06/17 08/06/17 08/06/17 09:05 09:23 09:23 WBC 12.5 H RBC 4.03 L Hgb 12.2 L Hct 38.2 L MCV 94.8 H MCH 30.2 MCHC 31.9 RDW 15.6 Plt Count 287 MPV 8.1 Neut % (Auto) 64.6 Lymph % (Auto) 21.5 Grant % (Auto) 10.0 H Eos % (Auto) 3.5 Baso % (Auto) 0.4 Neut # (Auto) 8.1 H Lymph # (Auto) 2.7 Grant # (Auto) 1.2 H Eos # (Auto) 0.4 Baso # (Auto) 0.1 PT 10.7 INR 0.99 APTT 27.7 Sodium Potassium Chloride Carbon Dioxide Anion Gap BUN Creatinine Estimated Creat Clear Estimated GFR Est GFR ( Amer) Glucose Calcium Magnesium Total Bilirubin AST ALT Alkaline Phosphatase Total Protein Albumin Globulin Albumin/Globulin Ratio Urine Color Urine Appearance Urine pH Ur Specific [place] Urine Protein Urine Glucose (UA) Urine Ketones Urine Blood Urine Nitrate Urine Bilirubin Urine Urobilinogen Ur Leukocyte Esterase Urine Bacteria Stool Occult Blood Positive A Blood Type Antibody Screen Crossmatch (AHG) 08/06/17 08/06/17 08/06/17 09:23 09:23 11:25 WBC RBC Hgb Hct
--- NOTE | 2017-08-08 07:23 | P.DS_ITS ---
General - General Admission date: 08/06/17 Discharge date: 08/08/17 HPI HPI: This is a 72-year-old gentleman seen in consultation after presenting to the emergency department with bright red blood per rectum. He presented to the emergency department after onset of bright red blood per rectum during the day. He reports diarrhea for the preceding 3 days. Blood would not fill the toilet bowl but was present within the toilet water and was also present on the toilet tissue after wiping. He has known internal and external hemorrhoids and most recent colonoscopy was at the end of April. Patient had serial H&H's performed on the emergency department which showed a decrease in the H&H and he was admitted for further observation. He reports one normal stool since admission and one bloody stool since admission. He denies lightheadedness or weakness. He admits to some abdominal discomfort and hunger Objective Vital signs: Temp Pulse Resp BP Pulse Ox 98.2 F 84 18 92/50 96 08/08/17 04:00 08/08/17 04:00 08/08/17 04:00 08/08/17 04:00 08/08/17 04:00 Narrative: Patient is awake and alert. Abdomen is soft and distended with active bowel sounds. Hospital Course Hospital Course: Patient was admitted for monitoring of H&H is. After initial presentation with hemoglobin of 12-1/2 he received IV fluids. Hemoglobin dropped to 10-1/2 and remained at this level for the rest of hospitalization. Actually believe the patient was dehydrated on admission due to his diarrhea and was therefore hemoconcentrated. His creatinine was significantly elevated at 2.5. Once he received IV fluids he returned to his baseline. Hemoglobin performed 3 weeks ago was 10.8. Because Dr. Charlton is familiar with the patient he was consulted as he performed his colonoscopy 3 months ago. He believed the source of bleeding was hemorrhoids as this was the only significant finding on colonoscopy. It was recommended that perhaps the patient should see a town planner due to his ongoing GI issues which not only include hemorrhoids but irregular bowel habits, abdominal bloating, cramping. Dr. Carey was consulted on the day of discharge. Patient was discharged after consultation Results Labs on day of discharge: Labs from last 24 hours 08/08/17 08/07/17 06:15 16:07 WBC 8.5 RBC 3.45 L Hgb 10.4 L 10.5 L Hct 32.6 L 32.2 L MCV 94.5 H MCH 30.1 MCHC 31.8 RDW 15.6 Plt Count 220 MPV 8.3 Neut % (Auto) 60.7 Lymph % (Auto) 23.5 [place] % (Auto) 10.1 H Eos % (Auto) 5.0 Baso % (Auto) 0.7 Neut # (Auto) 5.1 Lymph # (Auto) 2.0 [place] # (Auto) 0.9 Eos # (Auto) 0.4 Baso # (Auto) 0.1 Laboratory Results - last 72 hr 08/06/17 08/06/17 08/06/17 09:05 09:23 09:23 WBC 12.5 H RBC 4.03 L Hgb 12.2 L Hct 38.2 L MCV 94.8 H MCH 30.2 MCHC 31.9 RDW 15.6 Plt Count 287 MPV 8.1 Neut % (Auto) 64.6 Lymph % (Auto) 21.5 [place] % (Auto) 10.0 H Eos % (Auto) 3.5 Baso % (Auto) 0.4 Neut # (Auto) 8.1 H Lymph # (Auto) 2.7 [place] # (Auto) 1.2 H Eos # (Auto) 0.4 Baso # (Auto) 0.1
[2017-08-08 07:57] VITALS: BP 109/57; PULSE 93; RESP 20; TEMP 36.8; O2SAT 98
[2017-08-08 08:00] VITALS: RESP 20; O2SAT 98
--- NOTE | 2017-08-08 09:09 | PC.NURSE ---
DC instructions given to patient and grand daughter. Follow up appt's make w/ Dr Fine and Tish in Dr Mendez office. Pt and granddaughter verbalize understanding. IV dc'd. Tip intact, no s/s of infection noted. Quigley cath dc'd. 300 ml's clear yellow urine.
--- NOTE | 2017-08-08 09:16 | HMH.CONS ---
*Admission Date: 08/06/17 *Chief complaint: Hemorrhoidal bleeding/diarrhea *History of present illness: Mr. Patel is a 72 year old male with a history of intermittent diarrhea who was admitted on 08/06/16 with c/o diarrhea and hemorrhoidal bleeding. The pt reports he recently had a colonoscopy with Dr. Fine and has had a long hx of hemorrhoidal bleeding exacerbated by loose stool. It has improved over the past few days but he has continued to have some BRBPR when wiping. Stool is still soft/loose but no diarrhea. He denies pain at this time. [facility] History Medical History: Reports:: Chronic Obstructive Pulmonary Disease (COPD), Diabetes Mellitus Type 2, Gastroesophageal Reflux Disease(GERD), Gastrointestinal Bleed, Hypertension, Seizures Denies:: Cancer, Diabetes Mellitus Type 1, MRSA Other Medical History: Reports: Anemia Amputation: No Fractures: No - *Social History Educational Level: Completed High School Smoking Status: Former smoker Alcohol Intake: never Alcohol Intake Frequency:: other Substance Use Type: denies use - Psychiatric History Expresses thoughts of harming self/others: None Suicide Plan Description: No Plan *Family Hx:: Hypertension, Diabetes Review of Systems - Review of Systems Review of systems:: pertinent systems reviewed and negative unless documented below - *Gastrointestinal Reports change in bowel habits, Reports loose stools, Reports bright, red blood in stools - *Neurologic Denies dizziness Meds Home Medications Medication Instructions Recorded Confirmed Type Atorvastatin Calcium [Atorvastatin 80 mg PO HS 07/06/17 08/07/17 History 80mg Tab] Bethanechol Chloride [Urecholine] 10 mg PO TID 07/06/17 08/06/17 History Cholecalciferol (Vitamin D3) 1,000 unit PO DAILY 07/06/17 08/06/17 History [Vitamin D3 1,000 Unit Cap] Cyclobenzaprine HCl 10 mg PO DAILY 07/06/17 08/06/17 History [Cyclobenzaprine 10mg Tab] Dexlansoprazole [Dexilant] 1 tab PO DAILY 07/06/17 08/06/17 History Docusate Sodium [Colace] 100 mg PO DAILY 07/06/17 08/06/17 History Furosemide [Furosemide 20mg Tab] 1 tab PO DAILY 07/06/17 08/06/17 History Glimepiride 1 mg PO DAILY 07/06/17 08/06/17 History Linaclotide [Linzess] 1 cap PO DAILY 07/06/17 08/06/17 History Lisinopril/Hydrochlorothiazide 2 tab PO DAILY 07/06/17 08/06/17 History [Lisinopril-Hctz 20-12.5 mg Tab] One Daily Complete 1 tab PO DAILY 07/06/17 08/06/17 History Sucralfate [Sucralfate 1gm 1 tab PO QID 07/06/17 08/06/17 History Tab] Tamsulosin HCl [Flomax 0.4mg 1 tab PO DAILY 07/06/17 08/06/17 History capsule] levETIRAcetam [Levetiracetam] 0.5 tab PO BID 07/06/17 08/06/17 History Hydrocodone/Acetaminophen 1 each PO TID 08/06/17 08/06/17 History [Hydrocodone-Acetamin 7.5-325] Allergies Allergy/AdvReac Type Severity Reaction Status Date / Time baclofen Allergy Severe SWELLING Verified 07/19/17 09:07 gabapentin [From NEURONTIN] Allergy Mild Verified 07/19/17 09:07 metformin [METFORMIN] Allergy Mild Verified 07/19/17 09:07 morphine [MORPHINE] Allergy Mild Verified 07/19/17 09:07 Exam Vital signs and Labs for Last 24 Hours: Temp Pulse Resp BP Pulse Ox 98.2 F 93 H 20 109/57 98 08/08/17 07:57 08/08/17 07:57 08/08/17 08:00 08/08/17 07:57 08/08/17 08:00 Laboratory Results - last 24 hr 08/07/17 16:07: Hgb 10.5 L, Hct 32.2 L 08/08/17 06:15: WBC 8.5, RBC 3.45 L, Hgb 10.4 L, Hct 32.6 L, MCV 94.5 H, MCH 30.1, MCHC 31.8, RDW 15.6, Plt Count 220, MPV 8.3, Neut % (Auto) 60.7, Lymph % (Auto) 23.5, Elliott % (Auto) 10.1 H, Eos % (Auto) 5.0, Baso % (Auto) 0.7, Neut # (Auto) 5.1, Lymph # (Auto) 2.0, Elliott # (Auto) 0.9, Eos # (Auto) 0.4, Baso # (Auto) 0.1 08/08/17 06:15: Sodium 139, Potassium 3.7, Chloride 104, Carbon Dioxide 25, Anion Gap 13.7, BUN 27 H, Creatinine 1.87 H, Estimated Creat Clear 40, Estimated GFR 35 L, Est GFR ( Amer) 43 L, Glucose 90 I & O for Last 24 hours: Intake & Output 08/05/17 08/06/17 08/07/17
--- NOTE | 2017-08-08 09:19 | P.CONS_ITS ---
*Admission Date: 08/06/17 *Chief complaint: Hemorrhoidal bleeding/diarrhea *History of present illness: Mr. Patel is a 72 year old male with a history of intermittent diarrhea who was admitted on 08/06/16 with c/o diarrhea and hemorrhoidal bleeding. The pt reports he recently had a colonoscopy with Dr. Fine and has had a long hx of hemorrhoidal bleeding exacerbated by loose stool. It has improved over the past few days but he has continued to have some BRBPR when wiping. Stool is still soft/loose but no diarrhea. He denies pain at this time. [facility] History Medical History: Reports:: Chronic Obstructive Pulmonary Disease (COPD), Diabetes Mellitus Type 2, Gastroesophageal Reflux Disease(GERD), Gastrointestinal Bleed, Hypertension, Seizures Denies:: Cancer, Diabetes Mellitus Type 1, MRSA Other Medical History: Reports: Anemia Amputation: No Fractures: No - *Social History Educational Level: Completed High School Smoking Status: Former smoker Alcohol Intake: never Alcohol Intake Frequency:: other Substance Use Type: denies use - Psychiatric History Expresses thoughts of harming self/others: None Suicide Plan Description: No Plan *Family Hx:: Hypertension, Diabetes Review of Systems - Review of Systems Review of systems:: pertinent systems reviewed and negative unless documented below - *Gastrointestinal Reports change in bowel habits, Reports loose stools, Reports bright, red blood in stools - *Neurologic Denies dizziness Meds Home Medications Medication Instructions Recorded Confirmed Type Atorvastatin Calcium [Atorvastatin 80 mg PO HS 07/06/17 08/07/17 History 80mg Tab] Bethanechol Chloride [Urecholine] 10 mg PO TID 07/06/17 08/06/17 History Cholecalciferol (Vitamin D3) 1,000 unit PO DAILY 07/06/17 08/06/17 History [Vitamin D3 1,000 Unit Cap] Cyclobenzaprine HCl 10 mg PO DAILY 07/06/17 08/06/17 History [Cyclobenzaprine 10mg Tab] Dexlansoprazole [Dexilant] 1 tab PO DAILY 07/06/17 08/06/17 History Docusate Sodium [Colace] 100 mg PO DAILY 07/06/17 08/06/17 History Furosemide [Furosemide 20mg Tab] 1 tab PO DAILY 07/06/17 08/06/17 History Glimepiride 1 mg PO DAILY 07/06/17 08/06/17 History Linaclotide [Linzess] 1 cap PO DAILY 07/06/17 08/06/17 History Lisinopril/Hydrochlorothiazide 2 tab PO DAILY 07/06/17 08/06/17 History [Lisinopril-Hctz 20-12.5 mg Tab] One Daily Complete 1 tab PO DAILY 07/06/17 08/06/17 History Sucralfate [Sucralfate 1gm 1 tab PO QID 07/06/17 08/06/17 History Tab] Tamsulosin HCl [Flomax 0.4mg 1 tab PO DAILY 07/06/17 08/06/17 History capsule] levETIRAcetam [Levetiracetam] 0.5 tab PO BID 07/06/17 08/06/17 History Hydrocodone/Acetaminophen 1 each PO TID 08/06/17 08/06/17 History [Hydrocodone-Acetamin 7.5-325] Allergies Allergy/AdvReac Type Severity Reaction Status Date / Time baclofen Allergy Severe SWELLING Verified 07/19/17 09:07 gabapentin [From NEURONTIN] Allergy Mild Verified 07/19/17 09:07 metformin [METFORMIN] Allergy Mild Verified 07/19/17 09:07 morphine [MORPHINE] Allergy Mild Verified 07/19/17 09:07 Exam Vital signs and Labs for Last 24 Hours: Temp Pulse Resp BP Pulse Ox 98.2 F 93 H 20 109/57 98 08/08/17 07:57 08/08/17 07:57 08/08/17 08:00 08/08/17 07:57 08/08/17 08:00 Laboratory Results - last 24 hr 08/07/17 16:07: Hgb 10.5 L, H
== END 2017-08-08 09:00 | disposition home or self-care (01) ==
LOC: ER 11:01 → 2ND 11:12
PROVIDERS: Admitting Provider Emergency Medicine; Emergency Provider Emergency Medicine; Family Provider Family Medicine; PCP Family Medicine; Visit Provider Family Medicine
DX: K64.8 Other hemorrhoids (principal); K64.4 Residual hemorrhoidal skin tags; E86.0 Dehydration; R19.7 Diarrhea, unspecified; E11.42 Type 2 diabetes mellitus with diabetic polyneuropathy; J44.9 Chronic obstructive pulmonary disease, unspecified; I25.10 Atherosclerotic heart disease of native coronary artery without angina pectoris; Z95.5 Presence of coronary angioplasty implant and graft; Z79.01 Long term (current) use of anticoagulants; Z79.84 Long term (current) use of oral hypoglycemic drugs; Z79.891 Long term (current) use of opiate analgesic; Z79.899 Other long term (current) drug therapy; Z88.3 Allergy status to other anti-infective agents; Z88.5 Allergy status to narcotic agent; Z88.8 Allergy status to other drugs, medicaments and biological substances; Z87.891 Personal history of nicotine dependence; Z82.49 Family history of ischemic heart disease and other diseases of the circulatory system; Z83.3 Family history of diabetes mellitus
CPT/HCPCS: 36415; 74176; 80048; 80053; 81001; 82272; 83735; 85014; 85018; 85025; 85610; 85730; 86850; 96365; 99283; G0328; G0378

== ENCOUNTER 2019-04-25 10:22 | Inpatient (IN) ==
--- NOTE | 2019-04-25 10:29 | Emergency Department Note ---
ED Disposition Clinical Impression: Healthcare-associated pneumonia Sepsis Qualifiers: Sepsis type: sepsis due to unspecified organism Sepsis acute organ dysfunction status: without acute organ dysfunction Qualified Code(s): A41.9 - Sepsis, un specified organism Acute CHF (congestive heart failure) Qualifiers: Heart failure type: unspecified Qualified Code(s): I50.9 - Heart failure, unspecified Disposition: Admitted As Inpatient Condition on Discharge: Fair Referrals: Rayshawn Tinsley MD [Primary Care Provider] - 3 days - Critical Care Critical Care Time: Yes Attestation: On , the high probability of a clinically significant, sudden or life threatening deterioration of the following system(s) required my full and direct attention, intervention and personal management. The time I documented below is in addition to time spent performing reported procedures but includes the following listed in this critical care notation. 45 min Vital system(s) involved:: Circulatory Failure, Respiratory Failure My critical care processes included: Assessment & monitoring of V/S, Initial and Re-exams, Data Review/Interpretation, Coordinating Care, Medication Orders and management, Documentation Medical Decision Making - Medical Records Medical records reviewed: Yes: I reviewed the patient's medical records. - Levon Inquiry Pt receiving controlled substance: No Vital Signs: 04/25/19 10:19 04/25/19 10:38 04/25/19 10:45 Temperature 101.7 F H Temperature Source Rectal Pulse Rate [Radial] 99 H 90 Respiratory Rate 22 Blood Pressure [Right Arm] 121/70 101/62 L Blood Pressure Mean [Right Arm] 87 75 Blood Pressure Source [Right Arm] Automatic Cuff Blood Pressure Position [Right Arm] Sitting Sitting 02 Sat by Pulse Oximetry 93 L 100 Oxygen Delivery Method Nasal Cannula BiPAP Oxygen Flow Rate (LPM) 6 04/25/19 10:55 04/25/19 11:05 Temperature Temperature Source Pulse Rate [Radial] 90 89 Respiratory Rate Blood Pressure [Right Arm] 113/52 L 91/56 L Blood Pressure Mean [Right Arm] 72 67 Blood Pressure Source [Right Arm] Automatic Cuff Blood Pressure Position [Right Arm] Sitting Sitting 02 Sat by Pulse Oximetry 99 98 Oxygen Delivery Method BiPAP BiPAP Oxygen Flow Rate (LPM) - Lab Data Lab Results 04/25/19 10:33: WBC 30.6 H*, RBC 4.18 L, Hgb 11.3 L, Hct 37.6 L, MCV 90.1, MCH 27.2, MCHC 30.2 L, RDW 16.9, Plt Count 443 H, MPV 9.0, Neut % (Auto) 96.2 H, Lymph % (Auto) 0.9 L, [place] % (Auto) 2.4, Eos % (Auto) 0.2, Baso % (Auto) 0.3, Neut # (Auto) 29.4 H, Lymph # (Auto) 0.3 L, [place] # (Auto) 0.7, Eos # (Auto) 0.1, Baso # (Auto) 0.1, Total Counted 100, Neutrophils % (Manual) 91 H, Band Neutrophils % 6.0, Lymphocytes % (Manual) 2 L, Monocytes % (Manual) 1 L, Platelet Estimate Normal, Hypochromasia 1+, Poikilocytosis 1+, Anisocytosis 1+, Stomatocytes 2+, Acanthocytes (Spur) 1+ 04/25/19 10:33: Sodium 134 L, Potassium 4.6, Chloride 100, Carbon Dioxide 26, Anion Gap 12.6, BUN 21 H, Creatinine 1.52 H, Estimated Creat Clear 46, Estimated GFR 45 L, Est GFR ( Amer) 54 L, Glucose 155 H, Calcium 8.9, Total Bilirubin 1.0, AST 29, ALT 104 H, Alkaline Phosphatase 104, Total Protein 6.6, Albumin 2.8 L, Globulin 3.8 H, Albumin/Globulin Ratio 0.7 L 04/25/19 10:33: B-Natriuretic Peptide 2940 H 04/25/19 10:48: Specimen Source Left brachial, O2 % 6l, ABG pH 7.43, ABG pCO2 34.6 L, ABG pO2 55.0 L, ABG HCO3 22.4, ABG Total CO2 23.5, ABG O2 Saturation 87 L*, ABG Base Excess -1.9, Ubaldo Test Acceptable Result diagrams: 04/25/19 10:33 04/25/19 10:33 Orders (Tests/Meds): ED MEDICATIONS Generic Name Dose Route Start Last Admin Trade Name Freq PRN Reason Stop Dose Admin Levofloxacin/Dextrose 750 mg in 150 mls @ 100 mls/hr 04/25/19 11:00 Levofloxacin 750mg/150ml Premix IV 05/09/19 10:59 Q24H NIKIA Protocol Piperacillin Sod/Tazobactam 100 mls @ 200 mls/hr 04/25/19 10:00 04/25/19 11:14 Sod 4.5 gm/ Sodium Chloride IV 05/09/19 09:59 200 mls/hr Q6H NIKIA Administration Protocol Vancomycin HCl 1,500 mg/ 250 mls @ 125 mls/hr 04/25/19 11:15 Sodium Chloride IV 04/25/19 13:14 ONCE ONE Vancomycin HCl 1,500 mg/ 250 mls @ 125 mls/hr 04/26/19 09:00 Sodium Chloride IV 05/10/19 08:59 Q24H NIKIA Discontinued Medications Generic Name Dose Route Start Last Admin Trade Name Freq PRN Reason Stop Dose Admin Acetaminophen 650 mg 04/25/19 10:56 04/25/19 10:57 Acetaminophen 650mg Suppository RC 04/25/19 10:57 650 mg ONCE ONE Administration Furosemide 80 mg 04/25/19 10:22 04/25/19 10:46 Lasix 40mg/4ml Vial IV 04/25/19 10:23 80 mg ONCE ONE Administration Miscellaneous 1 each 04/25/19 11:00 Vancomycin Consult Request * 05/25/19 10:59 CONSULT PHARMACY NIKIA ORDERS Category Date Time Status Chest XR -- portable [XR chest portable] Stat Exams 04/25/19 10:22 Taken Lactic Acid Stat Lab 04/25/19 10:33 Received Blood Culture Stat Micro 04/25/19 10:33 Ordered EKG Request [ECG Request by /Shital] Stat Y 04/25/19 10:31 Ordered - Radiology Data #1 Image(s): Chest Image Reviewed: Yes I reviewed the patient's radiology image Bilateral patchy pulmonary edema, pleural effusions, likely layered consolidation with pneumonia - ECG Data Tracing #1 I reviewed this ECG and interpreted as documented below: EKG shows a sinus rhythm with a rate of 94. No acute ST segment elevation or depression. No hyperacute T waves. Normal intervals. EKG interpreted by me. Medical Decision Narrative: Patient presents with rectal temperature of 101.7, concern for healthcare associated pneumonia. Chest x-ray confirms this in addition to acute CHF exacerbation. He is not in septic shock. Maintaining oxygen saturations of 93% on nasal cannula administered orally (patient is a mouth breather) at 6 L. In order to help with his accumulated pulmonary edema, I have ordered a BiPAP. White blood cell count of 30,000. Blood cultures are drawn and patient is covered empirically with vancomycin, Zosyn, Levaquin. No significant metabolic derangement. Mild anemia. I discussed his case with Dr. Jimenez, developmental education instructor for Dr. Tinsley, and patient will be admitted for further management. Resp/SOB HPI - General Chief Complaint: Shortness of Breath/Dyspnea Stated Complaint: Shortness of Breath Time Seen by Provider: 04/25/19 10:24 Mode of Arrival: EMS Limitations: No Limitations Description of Symptoms (Recalled from ER Triage Doc. by RN): Was recently at for two weeks and discharged on tuesday related to Fluid overload, CHF, and blood clot in left ventricle. Has been weak, dizzy, coughing up frothy sputum, Shortness of Air - History of Present Illness This is a 73-year-old male with a past medical history significant for COPD, hypertension, GERD, anemia, congestive heart failure who presents to the emergency department for evaluation of cough productive of frothy blood-tinged sputum and shortness of breath worse over the last 3 days. He was discharged from [facility] days ago for similar symptoms. He has not had his dose of Lasix today. He describes cough and shortness of breath, no chest pain. He was recently diagnosed with a blood clot in his left ventricle, is currently on Eliquis. He does not know if he has gained weight. He denies any fevers. Daughter tried giving him a neb treatment at home, but it did not help. Onset (ago): week(s) - Related Data Home Medications Medication Instructions Recorded Confirmed Atorvastatin Calcium [Atorvastatin 80 mg PO HS 07/06/17 04/25/19 80mg Tab] Cholecalciferol (Vitamin D3) 1,000 unit PO DAILY 07/06/17 04/25/19 [Vitamin D3 1,000 Unit Cap] Furosemide [Furosemide 20mg Tab] 2 tab PO BID 07/06/17 04/25/19 Glimepiride 1 mg PO DAILY 07/06/17 04/25/19 Sucralfate [Sucralfate 1gm 1 tab PO QID 07/06/17 04/25/19 Tab] Tamsulosin HCl [Flomax 0.4mg 1 tab PO DAILY 07/06/17 04/25/19 capsule] levETIRAcetam [Levetiracetam] 0.5 tab PO BID 07/06/17 04/25/19 Hydrocodone/Acetaminophen 1 each PO TID 08/06/17 04/25/19 [Hydrocodone-Acetamin 7.5-325] Apixaban [Eliquis] 5 mg PO BID 04/25/19 04/25/19 Aspirin [Aspir 81] 81 mg PO DAILY 04/25/19 04/25/19 Carvedilol [Carvedilol 3.125mg Tab] 3.125 mg PO BID 04/25/19 04/25/19 Cyclobenzaprine HCl 10 mg PO BID 04/25/19 04/25/19 [Cyclobenzaprine 10mg Tab] Guaifenesin/Pseudoephedrne HCl 1 each PO DAILY 04/25/19 04/25/19 [Mucinex D ER 1,200-120 mg Tab] Lisinopril [Lisinopril 10mg Tab] 10 mg PO DAILY 04/25/19 04/25/19 Multivitamin [Multi-Vitamin Plain] 1 each PO DAILY 04/25/19 04/25/19 Pantoprazole Sodium [Protonix 40mg 40 mg PO DAILY 04/25/19 04/25/19 tablet] Psyllium Husk [Metamucil] 425 gm PO BID 04/25/19 04/25/19 Sennosides [Senna Laxative] 8.6 mg PO DAILY 04/25/19 04/25/19 Allergies Allergy/AdvReac Type Severity Reaction Status Date / Time baclofen Allergy Severe SWELLING Verified 05/23/18 13:42 gabapentin [From NEURONTIN] Allergy Mild Verified 05/23/18 13:42 metformin [METFORMIN] Allergy Mild Verified 05/23/18 13:42 morphine [MORPHINE] Allergy Mild Verified 05/23/18 13:42 [facility] History - Hepatitis A Screen Drug use history?: No High risk sexual behaviors?: No History of sexually transmitted infection?: No Currently employed?: No Childcare worker?: No Do you have indoor plumbing?: Yes Do you have electricity?: Yes Attestation statement:: This patient has been screened for Hepatitis A risk factors. I have reviewed the patient's past medical history: Yes Medical History: Reports:: Chronic Obstructive Pulmonary Disease (COPD), Gastroesophageal Reflux Disease(GERD), Gastrointestinal Bleed, Hypertension, Seizures Denies:: Cancer, Diabetes Mellitus Type 1, Diabetes Mellitus Type 2, MRSA Other Medical History: Reports: Anemia Comment: Internal and external hemorrhoids Amputation: No Fractures: No Comment: Cervical spine surgery - Social History Educational Level: Completed High School Smoking Status: Never smoker Alcohol Intake: never Alcohol Intake Frequency:: other Substance Use Type: denies use Occupational Status: retired Housing: house Family Hx:: Hypertension, Diabetes ROS Obtained: Yes All systems reviewed & no additional complaints Physical Exam - General General appearance: alert, in no apparent distress - Head Head exam: atraumatic, normocephalic, normal inspection - Eye Eye exam: Present: normal appearance. Absent: periorbital swelling - Neck Neck exam: Present: normal inspection, trachea midline - Chest Chest inspection: Present: normal inspection, symmetric chest wall rise - Respiratory Respiratory exam: Present: other (Rhonchi throughout, tachypnea) - Cardiovascular Cardiovascular exam: Present: regular rate, normal rhythm - Abdominal Exam Abdominal exam: Present: soft, normal bowel sounds. Absent: distention, tenderness, guarding - exam: Present: other (Quigley in place) - Extremities Exam Extremities exam: Present: pedal edema (2+ bilaterally) - Neurological Exam Neurological exam: Present: alert, other (Interactive and moving all extremities with equal strength) - Skin Skin exam: Present: warm, dry, pallor
[2019-04-25 10:56] LABS: ABG Base Excess -1.9 mmol/L (-2.4-2.3); ABG HCO3 22.4 mmhg (22.0-26.0); ABG Oxygen Saturation 87 % (90-100); ABG PCO2 34.6 mmhg (35.0-45.0); ABG PH 7.43 mmol/L (7.35-7.45); ABG TCO2 23.5 mmhg (23-27)
[2019-04-25 10:59] LABS: Allen's Test Acceptable; Oxygen 6L %
[2019-04-25 10:59] LABS: Basophils # 0.1 K/mm3 (0-0.2); Basophils % 0.3 % (0.1-2.0); Eosinophils # 0.1 K/mm3 (0.0-0.4); Eosinophils % 0.2 % (0.1-12.0); Hematocrit 37.6 % (42.0-52.0); Hemoglobin 11.3 g/dL (14.1-18.0); Lymphocytes # 0.3 K/mm3 (0.7-4.5); Lymphocytes % 0.9 % (10-50); Mean Corpuscular HGB Conc 30.2 g/dL (31.8-35.4); Mean Corpuscular Volume 90.1 fl (80-94); Monocytes # 0.7 K/mm3 (0.1-1.0); Monocytes % 2.4 % (1.7-9.3); Neutrophils # 29.4 K/mm3 (1.8-7.8); Neutrophils % 96.2 % (37.0-80.0); Platelet Count 443 K/mm3 (142-424); Red Blood Count 4.18 M/mm3 (4.60-6.20); Red Cell Distribution Width 16.9 % (11.5-17.5); White Blood Count 30.6 K/mm3 (4.8-10.8)
[2019-04-25 11:01] LABS: Albumin Level 2.8 gm/dL (3.4-5.0); Albumin/Globulin Ratio 0.7 (1.1-1.8); Anion Gap 12.6 mEq/L (5-15); Calcium 8.9 mg/dL (8.5-10.1); Globulin 3.8 gm/dl (1.3-3.2); Total Protein,Serum 6.6 gm/dL (6.4-8.2)
[2019-04-25 11:19] LABS: Lymphocytes % 2 % (10-50); Monocytes % 1 % (2-9); Neutrophils % 91 % (42-76); Total Cells Counted 100
[2019-04-25 11:20] LABS: Anisocytosis 1+; Hypochromasia 1+
[2019-04-25 11:21] LABS: Stomatocytes 2+
--- NOTE | 2019-04-25 11:48 | Pharmacy Consult Notes ---
- Pharmacy Consult Date: 04/25/19 Time: 11:47 Referring provider: DR. LOZA Reason for Consult:: VANCOMYCIN DOSING Allergies and ADEs:: Allergies Allergy/AdvReac Type Severity Reaction Status Date / Time baclofen Allergy Severe SWELLING Verified 05/23/18 13:42 gabapentin [From NEURONTIN] Allergy Mild Verified 05/23/18 13:42 metformin [METFORMIN] Allergy Mild Verified 05/23/18 13:42 morphine [MORPHINE] Allergy Mild Verified 05/23/18 13:42 Home Medications:: Home Medications Medication Instructions Recorded Confirmed Type Atorvastatin Calcium [Atorvastatin 80 mg PO HS 07/06/17 04/25/19 History 80mg Tab] Cholecalciferol (Vitamin D3) 1,000 unit PO DAILY 07/06/17 04/25/19 History [Vitamin D3 1,000 Unit Cap] Furosemide [Furosemide 20mg Tab] 2 tab PO BID 07/06/17 04/25/19 History Glimepiride 1 mg PO DAILY 07/06/17 04/25/19 History Sucralfate [Sucralfate 1gm 1 tab PO QID 07/06/17 04/25/19 History Tab] Tamsulosin HCl [Flomax 0.4mg 1 tab PO DAILY 07/06/17 04/25/19 History capsule] levETIRAcetam [Levetiracetam] 0.5 tab PO BID 07/06/17 04/25/19 History Hydrocodone/Acetaminophen 1 each PO TID 08/06/17 04/25/19 History [Hydrocodone-Acetamin 7.5-325] Apixaban [Eliquis] 5 mg PO BID 04/25/19 04/25/19 History Aspirin [Aspir 81] 81 mg PO DAILY 04/25/19 04/25/19 History Carvedilol [Carvedilol 3.125mg Tab] 3.125 mg PO BID 04/25/19 04/25/19 History Cyclobenzaprine HCl 10 mg PO BID 04/25/19 04/25/19 History [Cyclobenzaprine 10mg Tab] Guaifenesin/Pseudoephedrne HCl 1 each PO DAILY 04/25/19 04/25/19 History [Mucinex D ER 1,200-120 mg Tab] Lisinopril [Lisinopril 10mg Tab] 10 mg PO DAILY 04/25/19 04/25/19 History Multivitamin [Multi-Vitamin Plain] 1 each PO DAILY 04/25/19 04/25/19 History Pantoprazole Sodium [Protonix 40mg 40 mg PO DAILY 04/25/19 04/25/19 History tablet] Psyllium Husk [Metamucil] 425 gm PO BID 04/25/19 04/25/19 History Sennosides [Senna Laxative] 8.6 mg PO DAILY 04/25/19 04/25/19 History Height: 1.73 m Weight: 77.111 kg Laboratory Results:: Laboratory Results - last 24 hr 04/25/19 10:33: WBC 30.6 H*, RBC 4.18 L, Hgb 11.3 L, Hct 37.6 L, MCV 90.1, MCH 27.2, MCHC 30.2 L, RDW 16.9, Plt Count 443 H, MPV 9.0, Neut % (Auto) 96.2 H, Lymph % (Auto) 0.9 L, [place] % (Auto) 2.4, Eos % (Auto) 0.2, Baso % (Auto) 0.3, Neut # (Auto) 29.4 H, Lymph # (Auto) 0.3 L, [place] # (Auto) 0.7, Eos # (Auto) 0.1, Baso # (Auto) 0.1, Total Counted 100, Neutrophils % (Manual) 91 H, Band Neutrophils % 6.0, Lymphocytes % (Manual) 2 L, Monocytes % (Manual) 1 L, Platelet Estimate Normal, Hypochromasia 1+, Poikilocytosis 1+, Anisocytosis 1+, Stomatocytes 2+, Acanthocytes (Spur) 1+ 04/25/19 10:33: Sodium 134 L, Potassium 4.6, Chloride 100, Carbon Dioxide 26, Anion Gap 12.6, BUN 21 H, Creatinine 1.52 H, Estimated Creat Clear 46, Estimated GFR 45 L, Est GFR ( Amer) 54 L, Glucose 155 H, Calcium 8.9, Total Bilirubin 1.0, AST 29, ALT 104 H, Alkaline Phosphatase 104, Total Protein 6.6, Albumin 2.8 L, Globulin 3.8 H, Albumin/Globulin Ratio 0.7 L 04/25/19 10:33: B-Natriuretic Peptide 2940 H 04/25/19 10:33: Lactate 2.8 H 04/25/19 10:48: Specimen Source Left brachial, O2 % 6l, ABG pH 7.43, ABG pCO2 34.6 L, ABG pO2 55.0 L, ABG HCO3 22.4, ABG Total CO2 23.5, ABG O2 Saturation 87 L*, ABG Base Excess -1.9, Ubaldo Test Acceptable Medical History: Reports:: Chronic Obstructive Pulmonary Disease (COPD), Gastroesophageal Reflux Disease(GERD), Gastrointestinal Bleed, Hypertension, Seizures Denies:: Cancer, Diabetes Mellitus Type 1, Diabetes Mellitus Type 2, MRSA Assessment and Plan - Assessment and plan all Dx Assessment and Plan for all problems:: BASED ON PATIENT'S FACTORS, RECOMMEND VANCOMYCIN 1500 MG Q24H AT THIS TIME. PHARMACY WILL FOLLOW DAILY AND ADJUST APPROPRIATE.
--- NOTE | 2019-04-25 14:45 | Pharmacy Consult Notes ---
[facility] Pharmacy VTE Monitoring - Patient Demographics Admission date: 04/25/19 Report Date: 04/25/19 Time: 14:44 Allergies/Adverse Reactions: Patient Allergies baclofen Allergy (Severe, Verified 05/23/18 13:42) SWELLING gabapentin [From NEURONTIN] Allergy (Mild, Verified 05/23/18 13:42) metformin [METFORMIN] Allergy (Mild, Verified 05/23/18 13:42) morphine [MORPHINE] Allergy (Mild, Verified 05/23/18 13:42) Height: 1.73 m Weight: 86.296 kg Patient Problems: Current Active Problems Healthcare-associated pneumonia (Acute) Sepsis (Acute) Acute CHF (congestive heart failure) (Acute) - VTE Risk Labs: VTE Related Lab Results Hgb 11.3 g/dL (14.1-18.0) L 04/25/19 10:33 Hct 37.6 % (42.0-52.0) L 04/25/19 10:33 Plt Count 443 K/mm3 (142-424) H 04/25/19 10:33 BUN 21 mg/dL (7-18) H 04/25/19 10:33 Creatinine 1.52 mg/dL (0.70-1.30) H 04/25/19 10:33 Estimated Creat Clear 46 mL/min (50-200) 04/25/19 10:33 VTE Score: 8 VTE Risk Level: Moderate Risk - Prophylaxis VTE Prophylaxis Ordered?: Yes Types of VTE Prophylaxis: Pharmacological Pharmacologic Type: Other (ELIQUIS)
--- NOTE | 2019-04-25 15:22 | History & Physical Report ---
*Admission Date: 04/25/19 *Chief complaint: Fever and shortness of breath *History of present illness: 73-year-old male with known coronary artery disease, diabetes, COPD with a recent 15-day hospital stay at the [facility] from when she was discharged on April 22 presented to the emergency department this morning when he became short of breath at home. Patient was believed to have low-grade fever as well and was brought to the emergency department by family. In the emergency department patient was found to have a temperature greater than 101 along with abnormal lung exam including diminished breath sounds and rhonchi. White blood cell count was elevated at 30,000 and chest x-ray confirmed pneumonia as well as signs of congestive heart failure. Because of the patient's recent hospitalization at the [facility] he was started on broad-spectrum antibiotics to include Levaquin and Zosyn as well as vancomycin and given 80 mg of Lasix intravenously to begin treatment for pneumonia and decompensated congestive heart failure respectively. Patient was placed on BiPAP and admitted to the stepdown unit. Since admission patient has put out 1000 mL of urine and has been weaned from BiPAP to nasal cannula which she is tolerating. Patient notes improvement in his level of dyspnea. He has not been out of bed yet. Family is at bedside. Review of systems is negative for chest pain and orthopnea. Patient has had some loose stools. He has had weight gain that is believed to be at least 10 pounds since his hospitalization at the [facility] From April 07 to April 22 patient was at the [facility] after he was initially transferred there from our emergency department for emphysematous gastritis. Patient was not deemed a surgical candidate and was treated conservatively for emphysematous gastritis and chronic mesenteric ischemia. Part of his treatment involved aggressive fluid resuscitation. This resulted in decompensated heart failure with reduced ejection fraction. Patient developed signs of fluid overload including shortness of breath and peripheral edema. A transthoracic echocardiogram performed on April 16 showed biventricular heart failure with ejection fraction of 15 to 20% and reduced right ventricular function as well. Patient was diuresed with Lasix successfully while hospitalized. He was started on carvedilol at discharge. During the evaluation for his heart failure he was found to have a left ventricular thrombus and was started on Eliquis. His 2 daughters were at bedside reports the patient also had atrial fibrillation while hospitalized but there is no documentation of atrial fibrillation in the discharge summary. Patient had iron deficiency anemia as well and was given IV iron. Apparently discussion was had with the patient prior to discharge about transferring to a intermediate care facility with pulmonary rehab but this was declined by patient and family. [facility] History I have reviewed the patient's past medical history: Yes Medical History: Reports:: Atherosclerotic Heart Disease, Congestive Heart Failure, Chronic Obstructive Pulmonary Disease (COPD), Diabetes Mellitus Type 2, Gastroesophageal Reflux Disease(GERD), Gastrointestinal Bleed, Hyperlipidemia, Hypertension, Myocardial Infarction, Peripheral Artery Disease, Peripheral Vascular Disease, Seizures Denies:: Cancer, Diabetes Mellitus Type 1, MRSA *Have you ever received a pneumonia vaccine?: Yes *Have you received a flu vaccine this season?: No Other Medical History: Reports: Anemia Other Surgeries: Yes: Cardiac Catheterization, Coronary Stent Amputation: No Fractures: No - *Social History Educational Level: Attended Grade School Smoking Status: Former smoker Tobacco Type: cigarettes # Packs/Day (cigarettes): 1 Smoking End Date: 2016 Alcohol Intake: never Alcohol Intake Frequency:: other Substance Use Type: denies use *Occupational Status:: retired Housing: house Household Members: children *Travel in the last 8 weeks: None Family Hx:: Cancer, Coronary Artery Disease, Diabetes, Heart Attack, Hyperlipidemia, Hypertension, Kidney Disease, Stroke Review of Systems - Review of Systems Review of systems:: pertinent systems reviewed and negative unless documented below Meds Home Medications Medication Instructions Recorded Confirmed Type Atorvastatin Calcium [Atorvastatin 80 mg PO HS 07/06/17 04/25/19 History 80mg Tab] Cholecalciferol (Vitamin D3) 1,000 unit PO DAILY 07/06/17 04/25/19 History [Vitamin D3 1,000 Unit Cap] Furosemide [Furosemide 20mg Tab] 2 tab PO 0900,1500 07/06/17 04/25/19 History Glimepiride 1 mg PO PM 07/06/17 04/25/19 History Sucralfate [Sucralfate 1gm 1 tab PO TID 07/06/17 04/25/19 History Tab] Tamsulosin HCl [Flomax 0.4mg 1 tab PO PM 07/06/17 04/25/19 History capsule] levETIRAcetam [Levetiracetam] 250 mg PO BID 07/06/17 04/25/19 History Hydrocodone/Acetaminophen 1 each PO TID 08/06/17 04/25/19 History [Hydrocodone-Acetamin 7.5-325] Albuterol Sulfate [Proair 2 puffs IH Q4HP PRN 04/25/19 04/25/19 History Respiclick] Apixaban [Eliquis] 5 mg PO BID 04/25/19 04/25/19 History Aspirin [Aspir 81] 81 mg PO DAILY 04/25/19 04/25/19 History Carvedilol [Carvedilol 3.125mg Tab] 3.125 mg PO BID 04/25/19 04/25/19 History Cyclobenzaprine HCl 10 mg PO BID 04/25/19 04/25/19 History [Cyclobenzaprine 10mg Tab] Ipratropium/Albuterol Sulfate 3 ml IH Q4HP PRN 04/25/19 04/25/19 History [Duoneb 3mL neb] Lisinopril [Lisinopril 10mg Tab] 10 mg PO DAILY 04/25/19 04/25/19 History Multivitamin [Multi-Vitamin Plain] 1 each PO DAILY 04/25/19 04/25/19 History Pantoprazole Sodium [Protonix 40mg 40 mg PO DAILY 04/25/19 04/25/19 History tablet] Psyllium Husk [Metamucil] 30 ml PO BID 04/25/19 04/25/19 History Sennosides/Docusate Sodium [Senna 1 each PO DAILY 04/25/19 04/25/19 History Plus 8.6-50 mg Tablet] guaiFENesin [Mucinex] 1,200 mg PO 1500 04/25/19 04/25/19 History Allergies Allergy/AdvReac Type Severity Reaction Status Date / Time baclofen Allergy Severe SWELLING Verified 05/23/18 13:42 gabapentin [From NEURONTIN] Allergy Mild Verified 05/23/18 13:42 metformin [METFORMIN] Allergy Mild Verified 05/23/18 13:42 morphine [MORPHINE] Allergy Mild Verified 05/23/18 13:42 Exam Vital signs and Labs for Last 24 Hours: Temp Pulse Resp BP Pulse Ox 98.0 F 87 22 102/59 L 100 04/25/19 12:18 04/25/19 12:18 04/25/19 12:18 04/25/19 12:18 04/25/19 12:18 Laboratory Results - last 24 hr 04/25/19 10:33: WBC 30.6 H*, RBC 4.18 L, Hgb 11.3 L, Hct 37.6 L, MCV 90.1, MCH 27.2, MCHC 30.2 L, RDW 16.9, Plt Count 443 H, MPV 9.0, Neut % (Auto) 96.2 H, Lymph % (Auto) 0.9 L, [place] % (Auto) 2.4, Eos % (Auto) 0.2, Baso % (Auto) 0.3, Neut # (Auto) 29.4 H, Lymph # (Auto) 0.3 L, [place] # (Auto) 0.7, Eos # (Auto) 0.1, Baso # (Auto) 0.1, Total Counted 100, Neutrophils % (Manual) 91 H, Band Neutrophils % 6.0, Lymphocytes % (Manual) 2 L, Monocytes % (Manual) 1 L, Platelet Estimate Normal, Hypochromasia 1+, Poikilocytosis 1+, Anisocytosis 1+, Stomatocytes 2+, Acanthocytes (Spur) 1+ 04/25/19 10:33: Sodium 134 L, Potassium 4.6, Chloride 100, Carbon Dioxide 26, Anion Gap 12.6, BUN 21 H, Creatinine 1.52 H, Estimated Creat Clear 46, Estimated GFR 45 L, Est GFR ( Amer) 54 L, Glucose 155 H, Calcium 8.9, Total Bilirubin 1.0, AST 29, ALT 104 H, Alkaline Phosphatase 104, Total Protein 6.6, Albumin 2.8 L, Globulin 3.8 H, Albumin/Globulin Ratio 0.7 L 04/25/19 10:33: B-Natriuretic Peptide 2940 H 04/25/19 10:33: Lactate 2.8 H 04/25/19 10:48: Specimen Source Left brachial, O2 % 6l, ABG pH 7.43, ABG pCO2 34.6 L, ABG pO2 55.0 L, ABG HCO3 22.4, ABG Total CO2 23.5, ABG O2 Saturation 87 L*, ABG Base Excess -1.9, Ubaldo Test Acceptable I & O for Last 24 hours: Intake & Output 04/23/19 04/24/19 04/25/19 04/26/19 11:59 11:59 11:59 11:59 Weight 170 lb 190 lb 4 oz - Constitutional no acute distress - *Routine HEENT Exam Head: Present: normocephalic, atraumatic Eye: Present: EOMI, PERRL ENT: Present: mucous membranes moist - *Routine Neck Exam Present: supple, full ROM, JVD. Absent: carotid bruit - *Routine Respiratory Exam Comments: Diffuse rhonchi heard anteriorly and posteriorly with diminished breath sounds and rales at both bases no wheezing is heard - *Routine Cardiovascular Exam Present: RRR, Normal S1, Normal S2 - *Routine Abdominal Exam Comments: Soft, nontender with subcutaneous edema in the lower abdomen - *Routine Exam Scrotal: Present: swelling - *Routine Extremities Exam Present: edema Comments: 2-4+ edema of both legs from the thighs to the feet - *Routine Neurological Exam Present: alert, oriented X3, CN II-XII intact. Absent: sensory deficit, motor deficit Assessment and Plan (1) Healthcare-associated pneumonia Current visit: Yes Status: Acute Category: Medical Code(s): J18.9 - Pneumonia, unspecified organism Begin broad-spectrum antibiotics with Levaquin, Zosyn, vancomycin. Incentive sp irometry to increase pulmonary toilet. Tylenol for fevers (2) Acute on chronic systolic heart failure, NYHA class 3 Current visit: Yes Status: Acute Category: Medical Code(s): I50.23 - Acute on chronic systolic (congestive) heart failure Continue carvedilol. Hold lisinopril due to acute kidney injury. Patient has responded to intravenous Lasix given in the emergency department. Due to hypotension I will not give any additional diuretic today and reassess in the morning. Patient will be weighed daily (3) Acute kidney injury Current visit: Yes Status: Acute Category: Medical Code(s): N17.9 - Acute kidney failure, unspecified Suspect acute kidney injury is from hypotension and LV dysfunction. Hold lisinopril. Follow BMP daily. Check urinalysis (4) Chronic kidney disease Current visit: Yes Status: Chronic Category: Medical Code(s): N18.9 - Chronic kidney disease, unspecified (5) COPD (chronic obstructive pulmonary disease) Current visit: Yes Status: Chronic Qualifiers: COPD type: emphysema Category: Medical Code(s): J44.9 - Chronic obstructive pulmonary disease, unspecified (6) Left ventricular thrombus Current visit: Yes Status: Chronic Category: Medical Code(s): I51.3 - Intracardiac thrombosis, not elsewhere classified Continue Eliquis twice daily while hospitalized (7) Iron deficiency anemia Current visit: Yes Status: Acute Qualifiers: Iron deficiency anemia type: inadequate dietary iron intake Qualified Co de(s): D50.8 - Other iron deficiency anemias Category: Medical Code(s): D50.9 - Iron deficiency anemia, unspecified Follow H&H (8) Chronic mesenteric ischemia Current visit: Yes Status: Chronic Category: Medical Code(s): K55.1 - Chronic vascular disorders of intestine (9) BPH (benign prostatic hyperplasia) Current visit: Yes Status: Chronic Category: Medical Code(s): N40.0 - Benign prostatic hyperplasia without lower urinary tract symptoms Maintain Quigley catheter for now (10) CAD (coronary artery disease) Current visit: No Status: Chronic Qualifiers: Coronary Disease-Associated Artery/Lesion type: [place] artery [place] vs. transplanted heart: [place] heart Associated angina: without angina Qualified Code(s): I25.10 - Atherosclerotic heart disease of [place] coronary artery without angina pectoris Category: Medical Code(s): I25.10 - Atherosclerotic heart disease of [place] coronary artery without angina pectoris Continue aspirin, statin, carvedilol (11) Emphysematous gastritis Current visit: No Status: Chronic Category: Medical Code(s): K29.60 - Other gastritis without bleeding (12) Urinary retention Current visit: No Status: Chronic Category: Medical Code(s): R33.9 - Retention of urine, unspecified
[2019-04-25 16:32] LABS: Microscopic, Urine URINE MICROSCOPIC (MICROSCOPIC)
[2019-04-25 16:37] LABS: Appearance,Urine CLEAR (Clear); Bilirubin,Urine Negative (Negative); Blood, Urine TRACE-L (Negative); Color,Urine YELLOW (Yellow); Glucose,Urine (UA) Negative (Negative); Ketones,Urine Negative (Negative); Leukocyte Esterase,Urine Negative (Negative); PH,Urine 5.5 (5.0-8.5); Protein,Urine Negative (Negative); Specific Gravity, Urine 1.015 (1.005-1.030); Urobilinogen,Urine 0.2 EU/dl (0.2)
[2019-04-25 16:50] LABS: Bacteria,Urine Trace /lpf; WBC,Urine Occasional #/hpf (0-3)
[2019-04-26 05:10] LABS: Basophils # 0.1 K/mm3 (0-0.2); Basophils % 0.2 % (0.1-2.0); Eosinophils # 0.1 K/mm3 (0.0-0.4); Eosinophils % 0.2 % (0.1-12.0); Hematocrit 33.3 % (42.0-52.0); Lymphocytes # 0.8 K/mm3 (0.7-4.5); Lymphocytes % 2.9 % (10-50); Mean Corpuscular HGB Conc 30.1 g/dL (31.8-35.4); Mean Corpuscular Volume 90.8 fl (80-94); Mean Platelet Volume 9.3 fl (7.4-10.4); Monocytes # 1.4 K/mm3 (0.1-1.0); Neutrophils # 25.5 K/mm3 (1.8-7.8); Neutrophils % 91.7 % (37.0-80.0); Platelet Count 361 K/mm3 (142-424); Red Blood Count 3.67 M/mm3 (4.60-6.20); Red Cell Distribution Width 17.8 % (11.5-17.5); White Blood Count 27.8 K/mm3 (4.8-10.8)
[2019-04-26 05:15] LABS: Anion Gap 12.2 mEq/L (5-15); Calcium 8.5 mg/dL (8.5-10.1)
[2019-04-26 05:22] LABS: Hemoglobin 10.1 g/dL (14.1-18.0)
[2019-04-26 05:40] LABS: Anisocytosis 1+; Lymphocytes % 7 % (10-50); Neutrophils % 93 % (42-76); Total Cells Counted 100
[2019-04-26 05:41] LABS: Ovalocytes 1+; Stomatocytes 1+
--- NOTE | 2019-04-26 07:05 | Progress Note ---
Internal Medicine - PN: Subj *Date: 04/26/19 *Time: 07:02 Interval history: Patient has been stable overnight. With assistance to get out of bed and had a small bowel movement. He was weaned to room air. He continues to have cough with productive yellowish-green sputum and sensation as if his chest is congested and there is phlegm in the back of his throat. Exam Vital signs and Labs for Last 24 Hours: Temp Pulse Resp BP Pulse Ox 97.7 F 83 17 115/63 91 L 04/25/19 20:00 04/26/19 06:00 04/25/19 20:00 04/26/19 06:00 04/26/19 06:00 Laboratory Results - last 24 hr 04/25/19 10:33: WBC 30.6 H*, RBC 4.18 L, Hgb 11.3 L, Hct 37.6 L, MCV 90.1, MCH 27.2, MCHC 30.2 L, RDW 16.9, Plt Count 443 H, MPV 9.0, Neut % (Auto) 96.2 H, Lymph % (Auto) 0.9 L, [place] % (Auto) 2.4, Eos % (Auto) 0.2, Baso % (Auto) 0.3, Neut # (Auto) 29.4 H, Lymph # (Auto) 0.3 L, [place] # (Auto) 0.7, Eos # (Auto) 0.1, Baso # (Auto) 0.1, Total Counted 100, Neutrophils % (Manual) 91 H, Band Neutrophils % 6.0, Lymphocytes % (Manual) 2 L, Monocytes % (Manual) 1 L, Platelet Estimate Normal, Hypochromasia 1+, Poikilocytosis 1+, Anisocytosis 1+, Stomatocytes 2+, Acanthocytes (Spur) 1+ 04/25/19 10:33: Sodium 134 L, Potassium 4.6, Chloride 100, Carbon Dioxide 26, Anion Gap 12.6, BUN 21 H, Creatinine 1.52 H, Estimated Creat Clear 46, Estimated GFR 45 L, Est GFR ( Amer) 54 L, Glucose 155 H, Calcium 8.9, Total Bilirubin 1.0, AST 29, ALT 104 H, Alkaline Phosphatase 104, Total Protein 6.6, Albumin 2.8 L, Globulin 3.8 H, Albumin/Globulin Ratio 0.7 L 04/25/19 10:33: B-Natriuretic Peptide 2940 H 04/25/19 10:33: Lactate 2.8 H 04/25/19 10:48: Specimen Source Left brachial, O2 % 6l, ABG pH 7.43, ABG pCO2 34.6 L, ABG pO2 55.0 L, ABG HCO3 22.4, ABG Total CO2 23.5, ABG O2 Saturation 87 L*, ABG Base Excess -1.9, Ubaldo Test Acceptable 04/25/19 15:19: Lactate 2.5 H 04/25/19 16:22: Urine Color Yellow, Urine Appearance Clear, Urine pH 5.5, Ur Specific [place] 1.015, Urine Protein Negative, Urine Glucose (UA) Negative, Urine Ketones Negative, Urine Blood Trace-l, Urine Nitrate Negative, Urine Bilirubin Negative, Urine Urobilinogen 0.2, Ur Leukocyte Esterase Negative, Urine RBC 3-5, Urine WBC Occasional, Ur Squamous Epith Cells 3-5, Urine Bacteria Trace 04/25/19 17:38: Lactate 1.4 04/26/19 04:58: WBC 27.8 H*, RBC 3.67 L, Hgb 10.1 L D, Hct 33.3 L, MCV 90.8, MCH 27.4, MCHC 30.1 L, RDW 17.8 H, Plt Count 361, MPV 9.3, Neut % (Auto) 91.7 H, Lymph % (Auto) 2.9 L, [place] % (Auto) 5.0, Eos % (Auto) 0.2, Baso % (Auto) 0.2, Neut # (Auto) 25.5 H, Lymph # (Auto) 0.8, [place] # (Auto) 1.4 H, Eos # (Auto) 0.1, Baso # (Auto) 0.1, Total Counted 100, Neutrophils % (Manual) 93 H, Lymphocytes % (Manual) 7 L, Platelet Estimate Normal, RBC Morphology Not Reportable, Anisocytosis 1+, Ovalocytes 1+, Stomatocytes 1+ 04/26/19 04:58: Sodium 134 L, Potassium 4.2, Chloride 100, Carbon Dioxide 26, Anion Gap 12.2, BUN 22 H, Creatinine 1.66 H, Estimated Creat Clear 47, Estimated GFR 41 L, Est GFR ( Amer) 49 L, Glucose 94 D, Calcium 8.5 I & O for Last 24 hours: Intake & Output 04/23/19 04/24/19 04/25/19 04/26/19 11:59 11:59 11:59 11:59 Intake Total 620 / 620 Output Total 1325 / 1325 Balance -705 / -705 Weight 170 lb 190 lb 4.002 oz Narrative: He is in no distress. Oropharynx is moist. Lungs have clear anterior sounds and diminished sounds at the bases with faint rales. Heart has a regular rate and rhythm. Abdomen is soft and nontender. He continues to have edema of the lower extremities that appears unchanged since yesterday. He is in a negative fluid balance since admission Creatinine is risen slightly White blood cell count has decreased slightly Assessment and Plan (1) Healthcare-associated pneumonia Current visit: Yes Status: Acute Category: Medical Code(s): J18.9 - Pneumonia, unspecified organism (2) Acute on chronic systolic heart failure, NYHA class 3 Current visit: Yes Status: Acute Category: Medical Code(s): I50.23 - Acute on chronic systolic (congestive) heart failure (3) Acute kidney injury Current visit: Yes Status: Acute Category: Medical Code(s): N17.9 - Acute kidney failure, unspecified (4) Chronic kidney disease Current visit: Yes Status: Chronic Category: Medical Code(s): N18.9 - Chronic kidney disease, unspecified (5) COPD (chronic obstructive pulmonary disease) Current visit: Yes Status: Chronic Qualifiers: COPD type: emphysema Category: Medical Code(s): J44.9 - Chronic obstructive pulmonary disease, unspecified (6) Left ventricular thrombus Current visit: Yes Status: Chronic Category: Medical Code(s): I51.3 - Intracardiac thrombosis, not elsewhere classified (7) Iron deficiency anemia Current visit: Yes Status: Acute Qualifiers: Iron deficiency anemia type: inadequate dietary iron intake Qualified Code(s): D50.8 - Other iron deficiency anemias Category: Medical Code(s): D50.9 - Iron deficiency anemia, unspecified (8) Chronic mesenteric ischemia Current visit: Yes Status: Chronic Category: Medical Code(s): K55.1 - Chronic vascular disorders of intestine (9) BPH (benign prostatic hyperplasia) Current visit: Yes Status: Chronic Category: Medical Code(s): N40.0 - Benign prostatic hyperplasia without lower urinary tract symptoms (10) CAD (coronary artery disease) Current visit: No Status: Chronic Qualifiers: Coronary Disease-Associated Artery/Lesion type: [place] artery [place] vs. transplanted heart: [place] heart Associated angina: without angina Qualified Code(s): I25.10 - Atherosclerotic heart disease of [place] coronary artery without angina pectoris Category: Medical Code(s): I25.10 - Atherosclerotic heart disease of [place] coronary artery without angina pectoris (11) Emphysematous gastritis Current visit: No Status: Chronic Category: Medical Code(s): K29.60 - Other gastritis without bleeding (12) Urinary retention Current visit: No Status: Chronic Category: Medical Code(s): R33.9 - Retention of urine, unspecified (13) Sepsis Current visit: Yes Status: Acute Qualifiers: Sepsis type: sepsis due to unspecified organism Sepsis acute organ dysfunction status: without acute organ dysfunction Qualified Code(s): A41.9 - Sepsis, unspecified organism Category: Medical Code(s): A41.9 - Sepsis, unspecified organism - Assessment and plan all Dx Assessment and Plan for all problems:: 1. Continue broad-spectrum antibiotics 2. Continue to monitor I's and O's, patient is on fluid restriction. This morning I will hold any Lasix due to his persistent hypotension. 3. Restart Metamucil and Senokot 4. Transfer out of stepdown. Encourage ambulation. Out of bed to chair.
[2019-04-27 06:04] LABS: Basophils % 0.2 % (0.1-2.0); Eosinophils # 0.1 K/mm3 (0.0-0.4); Hematocrit 32.3 % (42.0-52.0); Hemoglobin 9.6 g/dL (14.1-18.0); Lymphocytes # 1.1 K/mm3 (0.7-4.5); Lymphocytes % 7.8 % (10-50); Mean Corpuscular HGB Conc 29.8 g/dL (31.8-35.4); Mean Corpuscular Volume 91.4 fl (80-94); Mean Platelet Volume 9.5 fl (7.4-10.4); Monocytes # 0.9 K/mm3 (0.1-1.0); Monocytes % 6.5 % (1.7-9.3); Neutrophils # 12.3 K/mm3 (1.8-7.8); Neutrophils % 84.5 % (37.0-80.0); Platelet Count 300 K/mm3 (142-424); Red Blood Count 3.53 M/mm3 (4.60-6.20); Red Cell Distribution Width 17.5 % (11.5-17.5); White Blood Count 14.6 K/mm3 (4.8-10.8)
[2019-04-27 06:11] LABS: Anion Gap 12.6 mEq/L (5-15); Calcium 8.4 mg/dL (8.5-10.1)
--- NOTE | 2019-04-27 07:19 | Progress Note ---
Internal Medicine - PN: Subj *Date: 04/27/19 *Time: 07:16 Interval history: Patient states he is feeling better this morning. He had some left lower quadrant abdominal pain yesterday that has since resolved with use of Tylenol. He feels like he may eventually have a very large bowel movement today based on the way his stomach is feeling. He had a positive blood culture yesterday that shows a gram-positive organism and the Lizzy gene has been detected. He continues to be afebrile. Continues to endorse sensation of chest congestion and inability to produce significant volumes of phlegm Exam Vital signs and Labs for Last 24 Hours: Temp Pulse Resp BP Pulse Ox 97.7 F 78 17 91/67 L 95 04/27/19 04:00 04/27/19 04:00 04/27/19 04:00 04/27/19 04:00 04/27/19 04:00 Laboratory Results - last 24 hr 04/27/19 05:30: WBC 14.6 H D, RBC 3.53 L, Hgb 9.6 L, Hct 32.3 L, MCV 91.4, MCH 27.3, MCHC 29.8 L, RDW 17.5, Plt Count 300, MPV 9.5, Neut % (Auto) 84.5 H, Lymph % (Auto) 7.8 L, [place] % (Auto) 6.5, Eos % (Auto) 1.0, Baso % (Auto) 0.2, Neut # (Auto) 12.3 H, Lymph # (Auto) 1.1, [place] # (Auto) 0.9, Eos # (Auto) 0.1, Baso # (Auto) 0.0 04/27/19 05:30: Sodium 135 L, Potassium 3.6, Chloride 101, Carbon Dioxide 25, Anion Gap 12.6, BUN 28 H D, Creatinine 2.17 H D, Estimated Creat Clear 37, Estimated GFR 30 L, Est GFR ( Amer) 36 L D, Glucose 68 L, Calcium 8.4 L I & O for Last 24 hours: Intake & Output 04/24/19 04/25/19 04/26/19 04/27/19 11:59 11:59 11:59 11:59 Intake Total 980 / 980 170 / 170 Output Total 1325 / 1325 150 / 150 Balance -345 / -345 Weight 170 lb 190 lb 4.002 oz 196 lb Microbiology Reports for the Last 24 Hours: Microbiology 04/25/19 11:25 Blood Blood Culture - Preliminary Narrative: Patient appears comfortable. He shows no signs of respiratory distress. Lungs are clear anteriorly but posteriorly diminished in the right base with rales in the left lung base extending from the base to the mid posterior lung. Assessment and Plan (1) Healthcare-associated pneumonia Current visit: Yes Status: Acute Category: Medical Code(s): J18.9 - Pneumonia, unspecified organism (2) Acute on chronic systolic heart failure, NYHA class 3 Current visit: Yes Status: Acute Category: Medical Code(s): I50.23 - Acute on chronic systolic (congestive) heart failure (3) Acute kidney injury Current visit: Yes Status: Acute Category: Medical Code(s): N17.9 - Acute kidney failure, unspecified (4) Chronic kidney disease Current visit: Yes Status: Chronic Category: Medical Code(s): N18.9 - Chronic kidney disease, unspecified (5) COPD (chronic obstructive pulmonary disease) Current visit: Yes Status: Chronic Qualifiers: COPD type: emphysema Category: Medical Code(s): J44.9 - Chronic obstructive pulmonary disease, unspecified (6) Left ventricular thrombus Current visit: Yes Status: Chronic Category: Medical Code(s): I51.3 - Intracardiac thrombosis, not elsewhere classified (7) Iron deficiency anemia Current visit: Yes Status: Acute Qualifiers: Iron deficiency anemia type: inadequate dietary iron intake Qualified Code(s): D50.8 - Other iron deficiency anemias Category: Medical Code(s): D50.9 - Iron deficiency anemia, unspecified (8) Chronic mesenteric ischemia Current visit: Yes Status: Chronic Category: Medical Code(s): K55.1 - Chronic vascular disorders of intestine (9) BPH (benign prostatic hyperplasia) Current visit: Yes Status: Chronic Category: Medical Code(s): N40.0 - Benign prostatic hyperplasia without lower urinary tract symptoms (10) CAD (coronary artery disease) Current visit: No Status: Chronic Qualifiers: Coronary Disease-Associated Artery/Lesion type: [place] artery [place] vs. transplanted heart: [place] heart Associated angina: without angina Qualified Code(s): I25.10 - Atherosclerotic heart disease of [place] coronary artery without angina pectoris Category: Medical Code(s): I25.10 - Atherosclerotic heart disease of [place] coronary artery without angina pectoris (11) Emphysematous gastritis Current visit: No Status: Chronic Category: Medical Code(s): K29.60 - Other gastritis without bleeding (12) Urinary retention Current visit: No Status: Chronic Category: Medical Code(s): R33.9 - Retention of urine, unspecified (13) Sepsis Current visit: Yes Status: Acute Qualifiers: Sepsis type: sepsis due to unspecified organism Sepsis acute organ dysfunction status: without acute organ dysfunction Qualified Code(s): A41.9 - Sepsis, unspecified organism Category: Medical Code(s): A41.9 - Sepsis, unspecified organism - Assessment and plan all Dx Assessment and Plan for all problems:: 1. Repeat x-ray today 2. Use Mucomyst neb to see if that improves sputum clearance. Continue incentive spirometry 3. PT and OT eval's.
--- NOTE | 2019-04-27 10:13 | Pharmacy Consult Notes ---
- Pharmacy Consult Date: 04/27/19 Time: 10:11 Referring provider: DR. LOZA Reason for Consult:: VANCOMYCIN TROUGH LEVEL Allergies and ADEs:: Allergies Allergy/AdvReac Type Severity Reaction Status Date / Time baclofen Allergy Severe SWELLING Verified 05/23/18 13:42 gabapentin [From NEURONTIN] Allergy Mild Verified 05/23/18 13:42 metformin [METFORMIN] Allergy Mild Verified 05/23/18 13:42 morphine [MORPHINE] Allergy Mild Verified 05/23/18 13:42 Home Medications:: Home Medications Medication Instructions Recorded Confirmed Type Atorvastatin Calcium [Atorvastatin 80 mg PO HS 07/06/17 04/25/19 History 80mg Tab] Cholecalciferol (Vitamin D3) 1,000 unit PO DAILY 07/06/17 04/25/19 History [Vitamin D3 1,000 Unit Cap] Furosemide [Furosemide 20mg Tab] 2 tab PO 0900,1500 07/06/17 04/25/19 History Glimepiride 1 mg PO PM 07/06/17 04/25/19 History Sucralfate [Sucralfate 1gm 1 tab PO TID 07/06/17 04/25/19 History Tab] Tamsulosin HCl [Flomax 0.4mg 1 tab PO PM 07/06/17 04/25/19 History capsule] levETIRAcetam [Levetiracetam] 250 mg PO BID 07/06/17 04/25/19 History Hydrocodone/Acetaminophen 1 each PO TID 08/06/17 04/25/19 History [Hydrocodone-Acetamin 7.5-325] Albuterol Sulfate [Proair 2 puffs IH Q4HP PRN 04/25/19 04/25/19 History Respiclick] Apixaban [Eliquis] 5 mg PO BID 04/25/19 04/25/19 History Aspirin [Aspir 81] 81 mg PO DAILY 04/25/19 04/25/19 History Carvedilol [Carvedilol 3.125mg Tab] 3.125 mg PO BID 04/25/19 04/25/19 History Cyclobenzaprine HCl 10 mg PO BID 04/25/19 04/25/19 History [Cyclobenzaprine 10mg Tab] Ipratropium/Albuterol Sulfate 3 ml IH Q4HP PRN 04/25/19 04/25/19 History [Duoneb 3mL neb] Lisinopril [Lisinopril 10mg Tab] 10 mg PO DAILY 04/25/19 04/25/19 History Multivitamin [Multi-Vitamin Plain] 1 each PO DAILY 04/25/19 04/25/19 History Pantoprazole Sodium [Protonix 40mg 40 mg PO DAILY 04/25/19 04/25/19 History tablet] Psyllium Husk [Metamucil] 30 ml PO BID 04/25/19 04/25/19 History Sennosides/Docusate Sodium [Senna 1 each PO DAILY 04/25/19 04/25/19 History Plus 8.6-50 mg Tablet] guaiFENesin [Mucinex] 1,200 mg PO 1500 04/25/19 04/25/19 History Height: 1.73 m Weight: 88.904 kg Laboratory Results:: Laboratory Results - last 24 hr 04/27/19 05:30: Vancomycin Trough 19.3 04/27/19 05:30: WBC 14.6 H D, RBC 3.53 L, Hgb 9.6 L, Hct 32.3 L, MCV 91.4, MCH 27.3, MCHC 29.8 L, RDW 17.5, Plt Count 300, MPV 9.5, Neut % (Auto) 84.5 H, Lymph % (Auto) 7.8 L, [place] % (Auto) 6.5, Eos % (Auto) 1.0, Baso % (Auto) 0.2, Neut # (Auto) 12.3 H, Lymph # (Auto) 1.1, [place] # (Auto) 0.9, Eos # (Auto) 0.1, Baso # (Auto) 0.0 04/27/19 05:30: Sodium 135 L, Potassium 3.6, Chloride 101, Carbon Dioxide 25, Anion Gap 12.6, BUN 28 H D, Creatinine 2.17 H D, Estimated Creat Clear 37, Estimated GFR 30 L, Est GFR ( Amer) 36 L D, Glucose 68 L, Calcium 8.4 L Medical History: Reports:: Atherosclerotic Heart Disease, Congestive Heart Failure, Chronic Obstructive Pulmonary Disease (COPD), Diabetes Mellitus Type 2, Gastroesophageal Reflux Disease(GERD), Gastrointestinal Bleed, Hyperlipidemia, Hypertension, Myocardial Infarction, Peripheral Artery Disease, Peripheral Vascular Disease, Seizures Denies:: Cancer, Diabetes Mellitus Type 1, MRSA Assessment and Plan (1) Healthcare-associated pneumonia Current visit: Yes Status: Acute Category: Medical Code(s): J18.9 - Pneumonia, unspecified organism (2) Acute on chronic systolic heart failure, NYHA class 3 Current visit: Yes Status: Acute Category: Medical Code(s): I50.23 - Acute on chronic systolic (congestive) heart failure (3) Acute kidney injury Current visit: Yes Status: Acute Category: Medical Code(s): N17.9 - Acute kidney failure, unspecified (4) Chronic kidney disease Current visit: Yes Status: Chronic Category: Medical Code(s): N18.9 - Chronic kidney disease, unspecified (5) COPD (chronic obstructive pulmonary disease) Current visit: Yes Status: Chronic Qualifiers: COPD type: emphysema Category: Medical Code(s): J44.9 - Chronic obstructive pulmonary disease, unsp ecified (6) Left ventricular thrombus Current visit: Yes Status: Chronic Category: Medical Code(s): I51.3 - Intracardiac thrombosis, not elsewhere classified (7) Iron deficiency anemia Current visit: Yes Status: Acute Qualifiers: Iron deficiency anemia type: inadequate dietary iron intake Qualified Code(s): D50.8 - Other iron deficiency anemias Category: Medical Code(s): D50.9 - Iron deficiency anemia, unspecified (8) Chronic mesenteric ischemia Current visit: Yes Status: Chronic Category: Medical Code(s): K55.1 - Chronic vascular disorders of intestine (9) BPH (benign prostatic hyperplasia) Current visit: Yes Status: Chronic Category: Medical Code(s): N40.0 - Benign prostatic hyperplasia without lower urinary tract symptoms (10) CAD (coronary artery disease) Current visit: No Status: Chronic Qualifiers: Coronary Disease-Associated Artery/Lesion type: [place] artery [place] vs. transplanted heart: [place] heart Associated angina: without angina Qualified Code(s): I25.10 - Atherosclerotic heart disease of [place] coronary artery without angina pectoris Category: Medical Code(s): I25.10 - Atherosclerotic heart disease of [place] coronary artery without angina pectoris (11) Emphysematous gastritis Current visit: No Status: Chronic Category: Medical Code(s): K29.60 - Other gastritis without bleeding (12) Urinary retention Current visit: No Status: Chronic Category: Medical Code(s): R33.9 - Retention of urine, unspecified (13) Sepsis Current visit: Yes Status: Acute Qualifiers: Sepsis type: sepsis due to unspecified organism Sepsis acute organ dysfunction status: without acute organ dysfunction Qualified Code(s): A41.9 - Sepsis, unspecified organism Category: Medical Code(s): A41.9 - Sepsis, unspecified organism - Assessment and plan all Dx Assessment and Plan for all problems:: BASED ON VANCOMYCIN TROUGH LEVEL AND PATIENT FACTORS, RECOMMEND DECREASING DOSE TO 1250 MG IV Q24H STARTING AT 1300 TODAY. WILL OBTAIN VANCOMYCIN TROUGH LEVEL ON 04/29/19. PHARMACY WILL CONTINUE TO MONITOR DAILY AND ADJUST APPROPRIATE.
[2019-04-28 05:58] LABS: Basophils # 0.1 K/mm3 (0-0.2); Basophils % 0.4 % (0.1-2.0); Eosinophils # 0.2 K/mm3 (0.0-0.4); Eosinophils % 1.8 % (0.1-12.0); Hematocrit 33.2 % (42.0-52.0); Hemoglobin 9.8 g/dL (14.1-18.0); Lymphocytes # 1.2 K/mm3 (0.7-4.5); Lymphocytes % 9.3 % (10-50); Mean Corpuscular HGB Conc 29.4 g/dL (31.8-35.4); Mean Corpuscular Volume 90.9 fl (80-94); Mean Platelet Volume 9.8 fl (7.4-10.4); Monocytes # 0.7 K/mm3 (0.1-1.0); Monocytes % 5.8 % (1.7-9.3); Neutrophils # 10.2 K/mm3 (1.8-7.8); Neutrophils % 82.7 % (37.0-80.0); Platelet Count 298 K/mm3 (142-424); Red Blood Count 3.66 M/mm3 (4.60-6.20); Red Cell Distribution Width 17.4 % (11.5-17.5); White Blood Count 12.4 K/mm3 (4.8-10.8)
[2019-04-28 06:16] LABS: Anion Gap 13.6 mEq/L (5-15); Calcium 8.6 mg/dL (8.5-10.1)
--- NOTE | 2019-04-28 08:19 | Progress Note ---
Internal Medicine - PN: Subj *Date: 04/28/19 *Time: 08:16 Interval history: Patient has a few concerns this morning. First he would like his Metamucil scheduled twice daily to aid with bowel movements. Second he would like his Flexeril reordered which he takes for chronic pain. Nursing staff reports urine has turned from yellow to dark yellow mixed with some blood in his Quigley bag has bloody urine in it this morning. Qu[place]ley catheter has been adjusted to try to prevent periurethral injury. In regards to shortness of breath patient feels unchanged over the last 24 hours. Mucomyst nebs did not improve sputum clearance Exam Vital signs and Labs for Last 24 Hours: Temp Pulse Resp BP Pulse Ox 97.5 F L 84 22 117/89 95 04/28/19 03:22 04/28/19 06:44 04/28/19 03:22 04/28/19 03:22 04/28/19 06:44 Laboratory Results - last 24 hr 04/25/19 16:22: Urine Sodium 63 04/27/19 05:30: Vancomycin Trough 19.3 04/28/19 05:45: WBC 12.4 H, RBC 3.66 L, Hgb 9.8 L, Hct 33.2 L, MCV 90.9, MCH 26.7 L, MCHC 29.4 L, RDW 17.4, Plt Count 298, MPV 9.8, Neut % (Auto) 82.7 H, Lymph % (Auto) 9.3 L, [place] % (Auto) 5.8, Eos % (Auto) 1.8, Baso % (Auto) 0.4, Neut # (Auto) 10.2 H, Lymph # (Auto) 1.2, [place] # (Auto) 0.7, Eos # (Auto) 0.2, Baso # (Auto) 0.1 04/28/19 05:45: Sodium 136, Potassium 3.6, Chloride 100, Carbon Dioxide 26, Anion Gap 13.6, BUN 28 H, Creatinine 2.21 H, Estimated Creat Clear 36, Estimated GFR 29 L, Est GFR ( Amer) 35 L, Glucose 68 L, Calcium 8.6 I & O for Last 24 hours: Intake & Output 04/25/19 04/26/19 04/27/19 04/28/19 11:59 11:59 11:59 11:59 Intake Total 980 / 980 290 / 290 1260 / 1260 Output Total 1325 / 1325 150 / 150 1350 / 1350 Balance -345 / -345 140 / 140 -90 / -90 Weight 170 lb 190 lb 4.002 oz 195 lb 15.996 oz Microbiology Reports for the Last 24 Hours: Microbiology 04/25/19 10:33 Blood Blood Culture - Preliminary NO GROWTH AFTER 48 HOURS 04/25/19 11:25 Blood Blood Culture - Preliminary Gram Positive Cocci Narrative: Patient looks comfortable. Lung exam reveals expiratory wheezes this morning. Diminished breath sounds in the right base. Improved aeration of the left base with prominent rales from the base to the left midlung. Heart has a regular rate and rhythm. Abdomen is soft. Patient has 4+ edema of the lower extremities and edema extends to the proximal thighs and scrotum Assessment and Plan (1) Healthcare-associated pneumonia Current visit: Yes Status: Acute Category: Medical Code(s): J18.9 - Pne [place], unspecified organism Continue vancomycin and Zosyn. DC Mucomyst nebs. Increase frequency of duo nebs to 4 times daily. I will add on a small dose of oral steroid for patient's wheezing. (2) Acute on chronic systolic heart failure, NYHA class 3 Current visit: Yes Status: Acute Category: Medical Code(s): I50.23 - Acute on chronic systolic (congestive) heart failure (3) Acute kidney injury Current visit: Yes Status: Acute Category: Medical Code(s): N17.9 - Acute kidney failure, unspecified Creatinine is risen slightly since yesterday. I am going to start the patient on gentle IV fluid hydration of normal saline at 75 mL's per hour this morning and then this afternoon patient will be given a dose of Lasix. Patient will be monitored closely for worsening fluid overload as he is already edematous (4) Chronic kidney disease Current visit: Yes Status: Chronic Category: Medical Code(s): N18.9 - Chronic kidney disease, unspecified (5) COPD (chronic obstructive pulmonary disease) Current visit: Yes Status: Chronic Qualifiers: COPD type: emphysema Category: Medical Code(s): J44.9 - Chronic obstructive pulmonary disease, unspecified (6) Left ventricular thrombus Current visit: Yes Status: Chronic Category: Medical Code(s): I51.3 - Intracardiac thrombosis, not elsewhere classified (7) Iron deficiency anemia Current visit: Yes Status: Acute Qualifiers: Iron deficiency anemia type: inadequate dietary iron intake Qualified Code(s): D50.8 - Other iron deficiency anemias Category: Medical Code(s): D50.9 - Iron deficiency anemia, unspecified (8) Chronic mesenteric ischemia Current visit: Yes Status: Chronic Category: Medical Code(s): K55.1 - Chronic vascular disorders of intestine (9) BPH (benign prostatic hyperplasia) Current visit: Yes Status: Chronic Category: Medical Code(s): N40.0 - Benign prostatic hyperplasia without lower urinary tract symptoms (10) CAD (coronary artery disease) Current visit: No Status: Chronic Qualifiers: Coronary Disease-Associated Artery/Lesion type: [place] artery [place] vs. transplanted heart: [place] heart Associated angina: without angina Qualified Code(s): I25.10 - Atherosclerotic heart disease of [place] coronary artery without angina pectoris Category: Medical Code(s): I25.10 - Atherosclerotic heart disease of [place] coronary artery without angina pectoris (11) Emphysematous gastritis Current visit: No Status: Chronic Category: Medical Code(s): K29.60 - Other gastritis without bleeding (12) Urinary retention Current visit: No Status: Chronic Category: Medical Code(s): R33.9 - Retention of urine, unspecified (13) Sepsis Current visit: Yes Status: Acute Qualifiers: Sepsis type: sepsis due to unspecified organism Sepsis acute organ dysfunction status: without acute organ dysfunction Qualified Code(s): A41.9 - Sepsis, unspecified organism Category: Medical Code(s): A41.9 - Sepsis, unspecified organism
--- NOTE | 2019-04-28 11:36 | Electrocardiograph Report ---
APPROVED REPORT Exam: Resting ECG HR:94 bpm ECG Measurements Heart Rate 94 AXES AL 168 P 57 QRSd 96 QRS 97 QT 366 T137 QTc 457 <Conclusion> Sinus rhythm with premature atrial complexes Possible Left atrial enlargement Rightward axis Nonspecific T wave abnormality Abnormal ECG Electronically signed by : Neil Allred, 04/28/2019 11:36:05
--- NOTE | 2019-04-28 13:12 | Pharmacy Consult Notes ---
- Pharmacy Consult Date: 04/28/19 Time: 13:06 Referring provider: DR. LOZA Reason for Consult:: DOSE AND INTERVAL CHANGE FOR VANCOMYCIN Allergies and ADEs:: Allergies Allergy/AdvReac Type Severity Reaction Status Date / Time baclofen Allergy Severe SWELLING Verified 05/23/18 13:42 gabapentin [From NEURONTIN] Allergy Mild Verified 05/23/18 13:42 metformin [METFORMIN] Allergy Mild Verified 05/23/18 13:42 morphine [MORPHINE] Allergy Mild Verified 05/23/18 13:42 Home Medications:: Home Medications Medication Instructions Recorded Confirmed Type Atorvastatin Calcium [Atorvastatin 80 mg PO HS 07/06/17 04/25/19 History 80mg Tab] Cholecalciferol (Vitamin D3) 1,000 unit PO DAILY 07/06/17 04/25/19 History [Vitamin D3 1,000 Unit Cap] Furosemide [Furosemide 20mg Tab] 2 tab PO 0900,1500 07/06/17 04/25/19 History Glimepiride 1 mg PO PM 07/06/17 04/25/19 History Sucralfate [Sucralfate 1gm 1 tab PO TID 07/06/17 04/25/19 History Tab] Tamsulosin HCl [Flomax 0.4mg 1 tab PO PM 07/06/17 04/25/19 History capsule] levETIRAcetam [Levetiracetam] 250 mg PO BID 07/06/17 04/25/19 History Hydrocodone/Acetaminophen 1 each PO TID 08/06/17 04/25/19 History [Hydrocodone-Acetamin 7.5-325] Albuterol Sulfate [Proair 2 puffs IH Q4HP PRN 04/25/19 04/25/19 History Respiclick] Apixaban [Eliquis] 5 mg PO BID 04/25/19 04/25/19 History Aspirin [Aspir 81] 81 mg PO DAILY 04/25/19 04/25/19 History Carvedilol [Carvedilol 3.125mg Tab] 3.125 mg PO BID 04/25/19 04/25/19 History Cyclobenzaprine HCl 10 mg PO BID 04/25/19 04/25/19 History [Cyclobenzaprine 10mg Tab] Ipratropium/Albuterol Sulfate 3 ml IH Q4HP PRN 04/25/19 04/25/19 History [Duoneb 3mL neb] Lisinopril [Lisinopril 10mg Tab] 10 mg PO DAILY 04/25/19 04/25/19 History Multivitamin [Multi-Vitamin Plain] 1 each PO DAILY 04/25/19 04/25/19 History Pantoprazole Sodium [Protonix 40mg 40 mg PO DAILY 04/25/19 04/25/19 History tablet] Psyllium Husk [Metamucil] 30 ml PO BID 04/25/19 04/25/19 History Sennosides/Docusate Sodium [Senna 1 each PO DAILY 04/25/19 04/25/19 History Plus 8.6-50 mg Tablet] guaiFENesin [Mucinex] 1,200 mg PO 1500 04/25/19 04/25/19 History Height: 1.73 m Weight: 88.904 kg Laboratory Results:: Laboratory Results - last 24 hr 04/25/19 16:22: Urine Sodium 63 04/28/19 05:45: WBC 12.4 H, RBC 3.66 L, Hgb 9.8 L, Hct 33.2 L, MCV 90.9, MCH 26.7 L, MCHC 29.4 L, RDW 17.4, Plt Count 298, MPV 9.8, Neut % (Auto) 82.7 H, Lymph % (Auto) 9.3 L, [place] % (Auto) 5.8, Eos % (Auto) 1.8, Baso % (Auto) 0.4, Neut # (Auto) 10.2 H, Lymph # (Auto) 1.2, [place] # (Auto) 0.7, Eos # (Auto) 0.2, Baso # (Auto) 0.1 04/28/19 05:45: Sodium 136, Potassium 3.6, Chloride 100, Carbon Dioxide 26, Anion Gap 13.6, BUN 28 H, Creatinine 2.21 H, Estimated Creat Clear 36, Estimated GFR 29 L, Est GFR ( Amer) 35 L, Glucose 68 L, Calcium 8.6 04/28/19 12:18: Vancomycin Trough 22.9 H Medical History: Reports:: Atherosclerotic Heart Disease, Congestive Heart Failure, Chronic Obstructive Pulmonary Disease (COPD), Diabetes Mellitus Type 2, Gastroesophageal Reflux Disease(GERD), Gastrointestinal Bleed, Hyperlipidemia, Hypertension, Myocardial Infarction, Peripheral Artery Disease, Peripheral Vascular Disease, Seizures Denies:: Cancer, Diabetes Mellitus Type 1, MRSA Assessment and Plan (1) Healthcare-associated pneumonia Current visit: Yes Status: Acute Category: Medical Code(s): J18.9 - Pneumonia, unspecified organism (2) Acute on chronic systolic heart failure, NYHA class 3 Current visit: Yes Status: Acute Category: Medical Code(s): I50.23 - Acute on chronic systolic (congestive) heart failure (3) Acute kidney injury Current visit: Yes Status: Acute Category: Medical Code(s): N17.9 - Acute kidney failure, unspecified (4) Chronic kidney disease Current visit: Yes Status: Chronic Category: Medical Code(s): N18.9 - Chronic kidney disease, unspecified (5) COPD (chronic obstructive pulmonary disease) Current visit: Yes Status: Chronic Qualifiers: COPD type: emphysema Category: Medical Code(s): J44.9 - Chronic obstructive pulmonary disease, unspecified (6) Left ventricular thrombus Current visit: Yes Status: Chronic Category: Medical Code(s): I51.3 - Intracardiac thrombosis, not elsewhere classified (7) Iron deficiency anemia Current visit: Yes Status: Acute Qualifiers: Iron deficiency anemia type: inadequate dietary iron intake Qualified Code(s): D50.8 - Other iron deficiency anemias Category: Medical Code(s): D50.9 - Iron deficiency anemia, unspecified (8) Chronic mesenteric ischemia Current visit: Yes Status: Chronic Category: Medical Code(s): K55.1 - Chronic vascular disorders of intestine (9) BPH (benign prostatic hyperplasia) Current visit: Yes Status: Chronic Category: Medical Code(s): N40.0 - Benign prostatic hyperplasia without lower urinary tract symptoms (10) CAD (coronary artery disease) Current visit: No Status: Chronic Qualifiers: Coronary Disease-Associated Artery/Lesion type: [place] artery [place] vs. transplanted heart: [place] heart Associated angina: without angina Qualified Code(s): I25.10 - Atherosclerotic heart disease of [place] coronary artery without angina pectoris Category: Medical Code(s): I25.10 - Atherosclerotic heart disease of [place] coronary artery without angina pectoris (11) Emphysematous gastritis Current visit: No Status: Chronic Category: Medical Code(s): K29.60 - Other gastritis without bleeding (12) Urinary retention Current visit: No Status: Chronic Category: Medical Code(s): R33.9 - Retention of urine, unspecified (13) Sepsis Current visit: Yes Status: Acute Qualifiers: Sepsis type: sepsis due to unspecified organism Sepsis acute organ dysfunction status: without acute organ dysfunction Qualified Code(s): A41.9 - Sepsis, unspecified organism Category: Medical Code(s): A41.9 - Sepsis, unspecified organism - Assessment and plan all Dx Assessment and Plan for all problems:: PATIENT'S VANCOMYCIN TROUGH LEVEL WAS 22.9 MCG/ML TODAY PRIOR TO DOSE. PATIENT'S VANCOMYCIN TROUGH YESTERDAY WAS 19.3 MCG/ML. DOSE WAS REDUCED YESTERDAY AND DOSE HELD TO ALLOW FOR FURTHER CLEARANCE. WITH INCREASED TROUGH TODAY WITH LOWER DOSE, RECOMMEND AT THIS TIME TO INCREASE DOSING INTERVAL TO Q36H WITH VANCOMYCIN 1500 MG BUT ALSO HOLD DOSE UNTIL 0900 IN THE AM TO ALLOW FOR FURTHER CLEARANCE. CALCULATED T 1/2 AT THIS POINT IN 24.76 HRS. ALSO RECOMMENDING CHANGING ZOSYN 3.375 MG Q6H TO CEFEPIME 2 GM Q12H AT THIS TIME DUE TO DRUG-DRUG INTERACTION WITH VANCOMYCIN AND ZOSYN COUPLED WITH POOR/WORSENING RENAL FUNCTION. BMP SERIES ALREADY ORDER BY MD FOR THIS PATIENT DAILY.
[2019-04-29 06:22] LABS: Anion Gap 15.9 mEq/L (5-15); Calcium 8.4 mg/dL (8.5-10.1); Vancomycin,Random 15.1 ug/mL
[2019-04-29 06:23] LABS: Basophils % 0.3 % (0.1-2.0); Eosinophils # 0.1 K/mm3 (0.0-0.4); Eosinophils % 0.5 % (0.1-12.0); Hematocrit 32.3 % (42.0-52.0); Hemoglobin 9.5 g/dL (14.1-18.0); Lymphocytes # 1.3 K/mm3 (0.7-4.5); Lymphocytes % 11.2 % (10-50); Mean Corpuscular HGB Conc 29.4 g/dL (31.8-35.4); Mean Corpuscular Volume 91.1 fl (80-94); Mean Platelet Volume 10.1 fl (7.4-10.4); Monocytes % 8.9 % (1.7-9.3); Neutrophils # 9.1 K/mm3 (1.8-7.8); Neutrophils % 79.2 % (37.0-80.0); Platelet Count 301 K/mm3 (142-424); Red Blood Count 3.54 M/mm3 (4.60-6.20); Red Cell Distribution Width 17.3 % (11.5-17.5); White Blood Count 11.5 K/mm3 (4.8-10.8)
--- NOTE | 2019-04-29 07:25 | Progress Note ---
Internal Medicine - PN: Subj *Date: 04/29/19 *Time: 07:21 Interval history: Patient has no complaints this morning other than the sensation as if his throat is dry and closing up on him. He is repeatedly endorsed during the hospitalization sensation as if there is sputum to clear but gets stuck in his throat. Nursing applied oxygen for comfort although patient did not have any documented hypoxia on room air. Yesterday morning shortly after rounds patient began complaining of some lower abdominal pain again. This is a second such occurrence of pain during hospitalization. The patient had a CT scan of the abdomen and pelvis without contrast which was unrevealing. Patient also develo ped hematuria the day prior but there were no signs of renal anomalies. Bladder was contracted. Bilateral pleural effusions were seen on the CT scan. Patient is continued to have hematuria and nursing staff reports bleeding from around his PICC line. Patient is currently on Eliquis due to a left ventricular thrombus Exam Vital signs and Labs for Last 24 Hours: Temp Pulse Resp BP Pulse Ox 97.4 F L 83 18 121/78 98 04/29/19 04:00 04/29/19 06:26 04/29/19 04:00 04/29/19 04:00 04/29/19 06:26 Laboratory Results - last 24 hr 04/28/19 12:18: Vancomycin Trough 22.9 H 04/29/19 06:00: Sodium 138, Potassium 3.9, Chloride 101, Carbon Dioxide 25, Anion Gap 15.9 H, BUN 30 H, Creatinine 2.00 H, Estimated Creat Clear 40, Estimated GFR 33 L, Est GFR ( Amer) 40 L, Glucose 155 H, Calcium 8.4 L, Random Vancomycin 15.1 04/29/19 06:00: WBC 11.5 H, RBC 3.54 L, Hgb 9.5 L, Hct 32.3 L, MCV 91.1, MCH 26.8 L, MCHC 29.4 L, RDW 17.3, Plt Count 301, MPV 10.1, Neut % (Auto) 79.2, Lymph % (Auto) 11.2, [place] % (Auto) 8.9, Eos % (Auto) 0.5, Baso % (Auto) 0.3, Neut # (Auto) 9.1 H, Lymph # (Auto) 1.3, [place] # (Auto) 1.0, Eos # (Auto) 0.1, Baso # (Auto) 0.0 I & O for Last 24 hours: Intake & Output 04/26/19 04/27/19 04/28/19 04/29/19 11:59 11:59 11:59 10:59 Intake Total 980 / 980 290 / 290 1260 / 1260 957 / 957 Output Total 1325 / 1325 150 / 150 1350 / 1350 960 / 960 Balance -345 / -345 140 / 140 -90 / -90 -3 / -3 Weight 190 lb 4.002 oz 195 lb 15.996 oz Microbiology Reports for the Last 24 Hours: Microbiology 04/25/19 11:25 Blood Blood Culture - Final Staphylococcus epidermidis Narrative: Patient appears stable and in no distress. He does not look like he is having any difficulty breathing. Oropharynx is moist. Lungs have rales at the left base with pleuritic rub bilaterally at the bases. Heart has a regular rate and rhythm. Wheezing that was present yesterday is absent this morning. Abdomen is soft, nontender, nondistended with subcutaneous edema in the lower abdomen. Patient has 4+ lower extremity edema along with scrotal and penile edema. Assessment and Plan (1) Healthcare-associated pneumonia Current visit: Yes Status: Acute Category: Medical Code(s): J18.9 - Pneumonia, unspecified organism (2) Acute on chronic systolic heart failure, NYHA class 3 Current visit: Yes Status: Acute Category: Medical Code(s): I50.23 - Acute on chronic systolic (congestive) heart failure (3) Acute kidney injury Current visit: Yes Status: Acute Category: Medical Code(s): N17.9 - Acute kidney failure, unspecified (4) Chronic kidney disease Current visit: Yes Status: Chronic Category: Medical Code(s): N18.9 - Chronic kidney disease, unspecified (5) COPD (chronic obstructive pulmonary disease) Current visit: Yes Status: Chronic Qualifiers: COPD type: emphysema Category: Medical Code(s): J44.9 - Chronic obstructive pulmonary disease, unspecified (6) Left ventricular thrombus Current visit: Yes Status: Chronic Category: Medical Code(s): I51.3 - Intracardiac thrombosis, not elsewhere classified (7) Iron deficiency anemia Current visit: Yes Status: Acute Qualifiers: Iron deficiency anemia type: inadequate dietary iron intake Qualified Code(s): D50.8 - Other iron deficiency anemias Category: Medical Code(s): D50.9 - Iron deficiency anemia, unspecified (8) Chronic mesenteric ischemia Current visit: Yes Status: Chronic Category: Medical Code(s): K55.1 - Chronic vascular disorders of intestine (9) BPH (benign prostatic hyperplasia) Current visit: Yes Status: Chronic Category: Medical Code(s): N40.0 - Benign prostatic hyperplasia without lower urinary tract symptoms (10) CAD (coronary artery disease) Current visit: No Status: Chronic Qualifiers: Coronary Disease-Associated Artery/Lesion type: [place] artery [place] vs. transplanted heart: [place] heart Associated angina: without angina Qualified Code(s): I25.10 - Atherosclerotic heart disease of [place] coronary artery without angina pectoris Category: Medical Code(s): I25.10 - Atherosclerotic heart disease of [place] coronary artery without angina pectoris (11) Emphysematous gastritis Current visit: No Status: Chronic Category: Medical Code(s): K29.60 - Other gastritis without bleeding (12) Urinary retention Current visit: No Status: Chronic Category: Medical Code(s): R33.9 - Retention of urine, unspecified (13) Sepsis Current visit: Yes Status: Acute Qualifiers: Sepsis type: sepsis due to unspecified organism Sepsis acute organ dysfunction status: without acute organ dysfunction Qualified Code(s): A41.9 - Sepsis, unspecified organism Category: Medical Code(s): A41.9 - Sepsis, unspecified organism (14) Gross hematuria Current visit: Yes Status: Acute Category: Medical Code(s): R31.0 - Gross hematuria - Assessment and plan all Dx Assessment and Plan for all problems:: 1. Discontinue Eliquis at this time due to bleeding. 2. Urinalysis 3. Continue cefepime for patient's pneumonia 4. Patient will be restarted on a diuretic and I am going to place him on torsemide 40 mg daily.
[2019-04-29 08:45] LABS: Appearance,Urine SL CLOUDY (Clear); Blood, Urine 3+ (Negative); Color,Urine DK YELLOW (Yellow); Glucose,Urine (UA) Negative (Negative); Ketones,Urine TRACE (Negative); Leukocyte Esterase,Urine TRACE (Negative); Microscopic, Urine URINE MICROSCOPIC (MICROSCOPIC); Protein,Urine 1+ (Negative); Specific Gravity, Urine 1.025 (1.005-1.030); Urobilinogen,Urine 0.2 EU/dl (0.2)
[2019-04-29 08:52] LABS: Bilirubin,Urine Negative (Negative)
[2019-04-29 09:38] LABS: Bacteria,Urine Trace /lpf; RBC,Urine 20-50 #/hpf (0-3); Squamous Epithelial Cell,Urine Occasional #/hpf (0-5); WBC,Urine Occasional #/hpf (0-3)
[2019-04-30 05:23] LABS: Basophils % 0.3 % (0.1-2.0); Eosinophils % 0.3 % (0.1-12.0); Hematocrit 32.7 % (42.0-52.0); Hemoglobin 9.4 g/dL (14.1-18.0); Lymphocytes # 1.2 K/mm3 (0.7-4.5); Lymphocytes % 11.7 % (10-50); Mean Corpuscular HGB Conc 28.8 g/dL (31.8-35.4); Mean Corpuscular Volume 94.2 fl (80-94); Monocytes # 1.1 K/mm3 (0.1-1.0); Neutrophils # 8.2 K/mm3 (1.8-7.8); Neutrophils % 77.7 % (37.0-80.0); Platelet Count 237 K/mm3 (142-424); Red Blood Count 3.47 M/mm3 (4.60-6.20); Red Cell Distribution Width 17.4 % (11.5-17.5); White Blood Count 10.6 K/mm3 (4.8-10.8)
[2019-04-30 05:35] LABS: Anion Gap 13.1 mEq/L (5-15); Calcium 8.9 mg/dL (8.5-10.1)
--- NOTE | 2019-04-30 07:36 | Progress Note ---
Internal Medicine - PN: Subj *Date: 04/30/19 *Time: 07:34 Interval history: Patient has no complaints this morning. Nursing staff reports they have kept supplemental oxygen on the patient for comfort. He did sleep well last night. He denies any significant shortness of breath or chest pain. He remains edematous. Urine is starting to return to a normal color. Exam Vital signs and Labs for Last 24 Hours: Temp Pulse Resp BP Pulse Ox 97.6 F 84 17 132/85 98 04/30/19 04:00 04/30/19 06:08 04/30/19 04:00 04/30/19 04:00 04/30/19 06:08 Laboratory Results - last 24 hr 04/29/19 08:20: Urine Color Dk yellow, Urine Appearance Sl cloudy, Urine pH 5.0, Ur Specific [place] 1.025, Urine Protein 1+, Urine Glucose (UA) Negative, Urine Ketones Trace, Urine Blood 3+, Urine Nitrate Negative, Urine Bilirubin Negative, Urine Urobilinogen 0.2, Ur Leukocyte Esterase Trace, Urine RBC 20-50, Urine WBC Occasional, Ur Squamous Epith Cells Occasional, Urine Bacteria Trace 04/30/19 04:55: WBC 10.6, RBC 3.47 L, Hgb 9.4 L, Hct 32.7 L, MCV 94.2 H, MCH 27.1, MCHC 28.8 L, RDW 17.4, Plt Count 237, MPV 10.0, Neut % (Auto) 77.7, Lymph % (Auto) 11.7, [place] % (Auto) 10.0 H, Eos % (Auto) 0.3, Baso % (Auto) 0.3, Neut # (Auto) 8.2 H, Lymph # (Auto) 1.2, [place] # (Auto) 1.1 H, Eos # (Auto) 0.0, Baso # (Auto) 0.0 04/30/19 04:55: Sodium 135 L, Potassium 4.1, Chloride 99, Carbon Dioxide 27, Anion Gap 13.1, BUN 32 H, Creatinine 1.96 H, Estimated Creat Clear 41, Estimated GFR 34 L, Est GFR ( Amer) 41 L, Glucose 154 H, Calcium 8.9 I & O for Last 24 hours: Intake & Output 04/27/19 04/28/19 04/29/1919 12:59 12:59 11:59 11:59 Intake Total 720 / 720 Output Total 1000 / 1000 Balance -280 / -280 Weight 195 lb 15.996 oz Narrative: Patient appears comfortable. Lungs have improved aeration anteriorly. Improved aeration posteriorly with distant breath sounds at the bases and dry crackles at the left base. He remains significantly edematous in the lower extremities. [place] catheter is anchored Assessment and Plan (1) Healthcare-associated pneumonia Current visit: Yes Status: Acute Category: Medical Code(s): J18.9 - Pneumonia, unspecified organism (2) Acute on chronic systolic heart failure, NYHA class 3 Current visit: Yes Status: Acute Category: Medical Code(s): I50.23 - Acute on chronic systolic (congestive) heart failure (3) Acute kidney injury Current visit: Yes Status: Acute Category: Medical Code(s): N17.9 - Acute kidney failure, unspecified (4) Chronic kidney disease Current visit: Yes Status: Chronic Category: Medical Code(s): N18.9 - Chronic kidney disease, unspecified (5) COPD (chronic obstructive pulmonary disease) Current visit: Yes Status: Chronic Qualifiers: COPD type: emphysema Category: Medical Code(s): J44.9 - Chronic obstructive pulmonary disease, unspecified (6) Left ventricular thrombus Current visit: Yes Status: Chronic Category: Medical Code(s): I51.3 - Intracardiac thrombosis, not elsewhere classified (7) Iron deficiency anemia Current visit: Yes Status: Acute Qualifiers: Iron deficiency anemia type: inadequate dietary iron intake Qualified Code(s): D50.8 - Other iron deficiency anemias Category: Medical Code(s): D50.9 - Iron deficiency anemia, unspecified (8) Chronic mesenteric ischemia Current visit: Yes Status: Chronic Category: Medical Code(s): K55.1 - Chronic vascular disorders of intestine (9) BPH (benign prostatic hyperplasia) Current visit: Yes Status: Chronic Category: Medical Code(s): N40.0 - Benign prostatic hyperplasia without lower urinary tract symptoms (10) CAD (coronary artery disease) Current visit: No Status: Chronic Qualifiers: Coronary Disease-Associated Artery/Lesion type: [place] artery [place] vs. transplanted heart: [place] heart Associated angina: without angina Qualified Code(s): I25.10 - Atherosclerotic heart disease of [place] coronary artery without angina pectoris Category: Medical Code(s): I25.10 - Atherosclerotic heart disease of [place] coronary artery without angina pectoris (11) Emphysematous gastritis Current visit: No Status: Chronic Category: Medical Code(s): K29.60 - Other gastritis without bleeding (12) Urinary retention Current visit: No Status: Chronic Category: Medical Code(s): R33.9 - Retention of urine, unspecified (13) Sepsis Current visit: Yes Status: Acute Qualifiers: Sepsis type: sepsis due to unspecified organism Sepsis acute organ dysfunction status: without acute organ dysfunction Qualified Code(s): A41.9 - Sepsis, unspecified organism Category: Medical Code(s): A41.9 - Sepsis, unspecified organism (14) Gross hematuria Current visit: Yes Status: Acute Category: Medical Code(s): R31.0 - Gross hematuria - Assessment and plan all Dx Assessment and Plan for all problems:: Patient will receive antibiotics today and tomorrow and that should complete a 7-day course for his pneumonia. Anticipate discharge tomorrow. Patient will be given Lovenox at prophylactic dosing today and I will discuss with his family this afternoon use of anticoagulants moving forward for his left ventricular thrombus
--- NOTE | 2019-04-30 08:31 | Progress Note ---
Internal Medicine - PN: Subj *Date: 04/30/19 *Time: 08:30 Exam Vital signs and Labs for Last 24 Hours: Temp Pulse Resp BP Pulse Ox 97.6 F 84 17 132/85 98 04/30/19 04:00 04/30/19 06:08 04/30/19 04:00 04/30/19 04:00 04/30/19 06:08 Laboratory Results - last 24 hr 04/29/19 08:20: Urine Color Dk yellow, Urine Appearance Sl cloudy, Urine pH 5.0, Ur Specific [place] 1.025, Urine Protein 1+, Urine Glucose (UA) Negative, Urine Ketones Trace, Urine Blood 3+, Urine Nitrate Negative, Urine Bilirubin Negative, Urine Urobilinogen 0.2, Ur Leukocyte Esterase Trace, Urine RBC 20-50, Urine WBC Occasional, Ur Squamous Epith Cells Occasional, Urine Bacteria Trace 04/30/19 04:55: WBC 10.6, RBC 3.47 L, Hgb 9.4 L, Hct 32.7 L, MCV 94.2 H, MCH 27.1, MCHC 28.8 L, RDW 17.4, Plt Count 237, MPV 10.0, Neut % (Auto) 77.7, Lymph % (Auto) 11.7, [place] % (Auto) 10.0 H, Eos % (Auto) 0.3, Baso % (Auto) 0.3, Neut # (Auto) 8.2 H, Lymph # (Auto) 1.2, [place] # (Auto) 1.1 H, Eos # (Auto) 0.0, Baso # (Auto) 0.0 04/30/19 04:55: Sodium 135 L, Potassium 4.1, Chloride 99, Carbon Dioxide 27, Anion Gap 13.1, BUN 32 H, Creatinine 1.96 H, Estimated Creat Clear 41, Estimated GFR 34 L, Est GFR ( Amer) 41 L, Glucose 154 H, Calcium 8.9 I & O for Last 24 hours: Intake & Output 04/28/19 04/29/19 04/29/19 04/30/19 00:59 00:59 23:59 23:59 Intake Total 10 / 10 Output Total 1000 / 1000 Balance -990 / -990 Weight 88.904 kg Assessment and Plan (1) Healthcare-associated pneumonia Current visit: Yes Status: Acute Category: Medical Code(s): J18.9 - Pneumonia, unspecified organism (2) Acute on chronic systolic heart failure, NYHA class 3 Current visit: Yes Status: Acute Category: Medical Code(s): I50.23 - Acute on chronic systolic (congestive) heart failure (3) Acute kidney injury Current visit: Yes Status: Acute Category: Medical Code(s): N17.9 - Acute kidney failure, unspecified (4) Chronic kidney disease Current visit: Yes Status: Chronic Category: Medical Code(s): N18.9 - Chronic kidney disease, unspecified (5) COPD (chronic obstructive pulmonary disease) Current visit: Yes Status: Chronic Qualifiers: COPD type: emphysema Category: Medical Code(s): J44.9 - Chronic obstructive pulmonary disease, unspecified (6) Left ventricular thrombus Current visit: Yes Status: Chronic Category: Medical Code(s): I51.3 - Intracardiac thrombosis, not elsewhere classified (7) Iron deficiency anemia Current visit: Yes Status: Acute Qualifiers: Iron deficiency anemia type: inadequate dietary iron intake Qualified Code(s): D50.8 - Other iron deficiency anemias Category: Medical Code(s): D50.9 - Iron deficiency anemia, unspecified (8) Chronic mesenteric ischemia Current visit: Yes Status: Chronic Category: Medical Code(s): K55.1 - Chronic vascular disorders of intestine (9) BPH (benign prostatic hyperplasia) Current visit: Yes Status: Chronic Category: Medical Code(s): N40.0 - Benign prostatic hyperplasia without lower urinary tract symptoms (10) CAD (coronary artery disease) Current visit: No Status: Chronic Qualifiers: Coronary Disease-Associated Artery/Lesion type: [place] artery [place] vs. transplanted heart: [place] heart Associated angina: without angina Qualified Code(s): I25.10 - Atherosclerotic heart disease of [place] coronary artery without angina pectoris Category: Medical Code(s): I25.10 - Atherosclerotic heart disease of [place] coronary artery without angina pectoris (11) Emphysematous gastritis Current visit: No Status: Chronic Category: Medical Code(s): K29.60 - Other gastritis without bleeding (12) Urinary retention Current visit: No Status: Chronic Category: Medical Code(s): R33.9 - Retention of urine, unspecified (13) Sepsis Current visit: Yes Status: Acute Qualifiers: Sepsis type: sepsis due to unspecified organism Sepsis acute organ dysfunction status: without acute organ dysfunction Qualified Code(s): A41.9 - Sepsis, unspecified organism Category: Medical Code(s): A41.9 - Sepsis, unspecified organism (14) Gross hematuria Current visit: Yes Status: Acute Category: Medical Code(s): R31.0 - Gross hematuria The patient's infection will respond to the chosen ABx?: Yes Is the patient receiving the right drug, dose, and route?: Yes Could a more targeted ABx be ordered?: No (WBC WNL NOW. PATIENT RESPONDING. CONTINUING ABX TODAY AND TOMMORROW.)
[2019-05-01 06:11] LABS: Basophils % 0.3 % (0.1-2.0); Eosinophils # 0.1 K/mm3 (0.0-0.4); Eosinophils % 0.6 % (0.1-12.0); Hematocrit 32.6 % (42.0-52.0); Hemoglobin 9.7 g/dL (14.1-18.0); Lymphocytes # 1.1 K/mm3 (0.7-4.5); Lymphocytes % 9.7 % (10-50); Mean Corpuscular HGB Conc 29.8 g/dL (31.8-35.4); Mean Corpuscular Volume 91.6 fl (80-94); Neutrophils % 80.4 % (37.0-80.0); Platelet Count 255 K/mm3 (142-424); Red Blood Count 3.56 M/mm3 (4.60-6.20); Red Cell Distribution Width 17.4 % (11.5-17.5); White Blood Count 11.2 K/mm3 (4.8-10.8)
[2019-05-01 06:15] LABS: Calcium 8.9 mg/dL (8.5-10.1)
--- NOTE | 2019-05-01 07:43 | Progress Note ---
Internal Medicine - PN: Subj *Date: 05/01/19 *Time: 07:41 Interval history: Patient tells me he did not sleep well overnight but does not exactly know why. He believes he may be a little anxious about returning home. Nursing staff reports patient repeatedly requested his O2 sats be checked which were always in the high 90s both with and without supplemental oxygen. He denies any chest pain. His cough remains nonproductive. Exam Vital signs and Labs for Last 24 Hours: Temp Pulse Resp BP Pulse Ox 97.6 F 75 17 134/76 97 05/01/19 04:00 05/01/19 05:54 05/01/19 04:00 05/01/19 04:00 05/01/19 04:00 Laboratory Results - last 24 hr 05/01/19 05:30: WBC 11.2 H, RBC 3.56 L, Hgb 9.7 L, Hct 32.6 L, MCV 91.6, MCH 27.3, MCHC 29.8 L, RDW 17.4, Plt Count 255, MPV 10.0, Neut % (Auto) 80.4 H, Lymph % (Auto) 9.7 L, [place] % (Auto) 9.0, Eos % (Auto) 0.6, Baso % (Auto) 0.3, Neut # (Auto) 9.0 H, Lymph # (Auto) 1.1, [place] # (Auto) 1.0, Eos # (Auto) 0.1, Baso # (Auto) 0.0 05/01/19 05:30: Sodium 135 L, Potassium 4.0, Chloride 99, Carbon Dioxide 28, Anion Gap 12.0, BUN 35 H, Creatinine 1.83 H, Estimated Creat Clear 44, Estimated GFR 36 L, Est GFR ( Amer) 44 L, Glucose 152 H, Calcium 8.9 I & O for Last 24 hours: Intake & Output 04/28/19 04/29/19 04/30/19 05/01/19 12:59 11:59 11:59 11:59 Intake Total 840 / 840 710 / 710 Output Total 1000 / 1000 3625 / 3625 Balance -160 / -160 -2915 / -2915 Weight 195 lb 15.996 oz Microbiology Reports for the Last 24 Hours: Microbiology 04/25/19 10:33 Blood Blood Culture - Final NO GROWTH AFTER 5 DAYS Narrative: Patient looks comfortable. Lung examination reveals an expiratory wheeze on the left that improves with coughing. Heart has a regular rate and rhythm. Abdomen is soft and nontender. He still has penile and scrotal edema. He still has 2+ thigh edema and 4+ lower leg edema bilaterally. Edema in his toes has improved Assessment and Plan (1) Healthcare-associated pneumonia Current visit: Yes Status: Acute Category: Medical Code(s): J18.9 - Pneumonia, unspecified organism (2) Acute on chronic systolic heart failure, NYHA class 3 Current visit: Yes Status: Acute Category: Medical Code(s): I50.23 - Acute on chronic systolic (congestive) heart failure (3) Acute kidney injury Current visit: Yes Status: Acute Category: Medical Code(s): N17.9 - Acute kidney failure, unspecified (4) Chronic kidney disease Current visit: Yes Status: Chronic Category: Medical Code(s): N18.9 - Chronic kidney disease, unspecified (5) COPD (chronic obstructive pulmonary disease) Current visit: Yes Status: Chronic Qualifiers: COPD type: emphysema Category: Medical Code(s): J44.9 - Chronic obstructive pulmonary disease, unspecified (6) Left ventricular thrombus Current visit: Yes Status: Chronic Category: Medical Code(s): I51.3 - Intracardiac thrombosis, not elsewhere classified (7) Iron deficiency anemia Current visit: Yes Status: Acute Qualifiers: Iron deficiency anemia type: inadequate dietary iron intake Qualified Code(s): D50.8 - Other iron deficiency anemias Category: Medical Code(s): D50.9 - Iron deficiency anemia, unspecified (8) Chronic mesenteric ischemia Current visit: Yes Status: Chronic Category: Medical Code(s): K55.1 - Chronic vascular disorders of intestine (9) BPH (benign prostatic hyperplasia) Current visit: Yes Status: Chronic Category: Medical Code(s): N40.0 - Benign prostatic hyperplasia without lower urinary tract symptoms (10) CAD (coronary artery disease) Current visit: No Status: Chronic Qualifiers: Coronary Disease-Associated Artery/Lesion type: [place] artery [place] vs. transplanted heart: [place] heart Associated angina: without angina Qualified Code(s): I25.10 - Atherosclerotic heart disease of [place] coronary artery without angina pectoris Category: Medical Code(s): I25.10 - Atherosclerotic heart disease of [place] coronary artery without angina pectoris (11) Emphysematous gastritis Current visit: No Status: Chronic Category: Medical Code(s): K29.60 - Other gastritis without bleeding (12) Urinary retention Current visit: No Status: Chronic Category: Medical Code(s): R33.9 - Retention of urine, unspecified (13) Sepsis Current visit: Yes Status: Acute Qualifiers: Sepsis type: sepsis due to unspecified organism Sepsis acute organ dysfunction status: without acute organ dysfunction Qualified Code(s): A41.9 - Sepsis, unspecified organism Category: Medical Code(s): A41.9 - Sepsis, unspecified organism (14) Gross hematuria Current visit: Yes Status: Acute Category: Medical Code(s): R31.0 - Gross hematuria - Assessment and plan all Dx Assessment and Plan for all problems:: She will get his morning dose of antibiotics and then be discharged home. He will need home health discharge. Plan on weekly CBCs and BMPs for the rest of this month
--- NOTE | 2019-05-01 07:46 | Discharge Summary ---
General - General Admission date:: 04/25/19 Discharge date: 05/01/19 HPI HPI: 73-year-old male with known coronary artery disease, diabetes, COPD with a recent 15-day hospital stay at the [facility] from when she was discharged on April 22 presented to the emergency department this morning when he became short of breath at home. Patient was believed to have low-grade fever as well and was brought to the emergency department by family. In the emergency department patient was found to have a temperature greater than 101 along with abnormal lung exam including diminished breath sounds and rhonchi. White blood cell count was elevated at 30,000 and chest x-ray confirmed pneumonia as well as signs of congestive heart failure. Because of the patient's recent hospitalization at the [facility] he was started on broad-spectrum antibiotics to include Levaquin and Zosyn as well as vancomycin and given 80 mg of Lasix intravenously to begin treatment for pneumonia and decompensated congestive heart failure respectively. Patient was placed on BiPAP and admitted to the stepdown unit. Since admission patient has put out 1000 mL of urine and has been weaned from BiPAP to nasal cannula which she is tolerating. Patient notes improvement in his level of dyspnea. He has not been out of bed yet. Family is at bedside. Review of systems is negative for chest pain and orthopnea. Patient has had some loose stools. He has had weight gain that is believed to be at least 10 pounds since his hospitalization at the [facility] From April 07 to April 22 patient was at the [facility] after he was initially transferred there from our emergency department for emphysematous gastritis. Patient was not deemed a surgical candidate and was treated conservatively for emphysematous gastritis and chronic mesenteric ischemia. Part of his treatment involved aggressive fluid resuscitation. This resulted in decompensated heart failure with reduced ejection fraction. Patient developed signs of fluid overload including shortness of breath and peripheral edema. A transthoracic echocardiogram performed on April 16 showed biventricular heart failure with ejection fraction of 15 to 20% and reduced right ventricular function as well. Patient was diuresed with Lasix successfully while hospitalized. He was started on carvedilol at discharge. During the evaluation for his heart failure he was found to have a left ventricular thrombus and was started on Eliquis. His 2 daughters were at bedside reports the patient also had atrial fibrillation while hospitalized but there is no documentation of atrial fibrillation in the discharge summary. Patient had iron deficiency anemia as well and was given IV iron. Apparently discussion was had with the patient prior to discharge about transferring to a intermediate care facility with pulmonary rehab but this was declined by patient and family. Hospital Course Hospital Course: Please please see information under diagnoses for details of patient problems during hospitalization. Objective Vital signs: Temp Pulse Resp BP Pulse Ox 97.6 F 75 17 134/76 97 05/01/19 04:00 05/01/19 05:54 05/01/19 04:00 05/01/19 04:00 05/01/19 04:00 Results Labs on day of discharge: Labs from last 24 hours 05/01/19 05/01/19 05:30 05:30 WBC 11.2 H RBC 3.56 L Hgb 9.7 L Hct 32.6 L MCV 91.6 MCH 27.3 MCHC 29.8 L RDW 17.4 Plt Count 255 MPV 10.0 Neut % (Auto) 80.4 H Lymph % (Auto) 9.7 L [place] % (Auto) 9.0 Eos % (Auto) 0.6 Baso % (Auto) 0.3 Neut # (Auto) 9.0 H Lymph # (Auto) 1.1 [place] # (Auto) 1.0 Eos # (Auto) 0.1 Baso # (Auto) 0.0 Sodium 135 L Potassium 4.0 Chloride 99 Carbon Dioxide 28 Anion Gap 12.0 BUN 35 H Creatinine 1.83 H Estimated Creat Clear 44 Estimated GFR 36 L Est GFR ( Amer) 44 L Glucose 152 H Calcium 8.9 DS: Diagnosis - Discharge Diagnosis (1) Healthcare-associated pneumonia Status: Acute Problem details: Patient was admitted with diagnosis of bilateral pneumonia due to fevers and hypoxia and abnormal chest x-ray. He was kept on broad-spectrum antibiotics. Initially patient was started on Levaquin, Zosyn, vancomycin. When a single blood culture suggested a staph species Levaquin was discontinued. Zosyn was changed to cefepime during the course of hospitalization due to renal side effects. Once the blood culture returned to staph epidermidis this was considered a contaminant and vancomycin was disco ntinued. Patient finished out his hospitalization on cefepime for his pneumonia. He did complete a 7-day course of antibiotics. His lung exam went from diffuse rhonchi to improved aeration in the bases with occasional intermittent expiratory wheezes and pleuritic rubs. Serial chest x-rays did show persistence of pleural effusions. (2) Acute on chronic systolic heart failure, NYHA class 3 Status: Acute Problem details: Patient has known left ventricular systolic dysfunction with ejection fraction of 20% on recent hospitalization at the [facility]. Patient was continued on his carvedilol during hospitalization but due to hypotension lisinopril and Lasix were initially held. As blood pressure gradually increased once patient improved medications were restarted. I did discontinue his Lasix in favor of torsemide at discharge. (3) Acute kidney injury Status: Acute Problem details: Patient had acute kidney injury from his hypotension and I believe is also contributed to by either Zosyn or vancomycin and possibly both. Creatinine peaked at 2.2. On the day of discharge creatinine was 1.8 patient had excellent response to diuretics and maintained a negative fluid balance during hospitalization (4) Chronic kidney disease Status: Chronic (5) COPD (chronic obstructive pulmonary disease) Status: Chronic Problem details: Patient has underlying COPD. He was started on prednisone 20 mg daily midway through hospitalization due to mild wheezing along with breathing treatments. (6) Left ventricular thrombus Status: Chronic Problem details: Patient was also diagnosed as having a left ventricular thrombus at his hospitalization at the [facility]. He was started on Eliquis for this. During his hospitalization patient developed blood in his urine as well as frequent bleeding from around his PICC line. Eliquis was discontinued temporarily in favor of subcutaneous Lovenox. Discussion was had with the family about the importance of patient being on anticoagulant although this also increases his risk of bleeding and the patient does bruise rather easily even prior to use of anticoagulants. We opted to proceed with Eliquis 2.5 mg twice daily. (7) Iron deficiency anemia Status: Acute Problem details: She has a history of iron deficiency anemia and was transfused iron during his hospitalization at . His H&H remained stable during his hospitalization (8) Chronic mesenteric ischemia Status: Chronic Problem details: Patient has chronic mesenteric ischemia which did not cause any symptoms during hospitalization. 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 Consideration was given to discontinuation of the catheter when patient developed bleeding but family preferred state and. (13) Sepsis Status: Acute Problem details: She was considered septic on admission and was treated as such with broad-spectrum antibiotic and fluid resuscitation. Blood cultures were negative except for 1 anaerobic culture that grew staph epidermidis and this was considered a contaminant. While patient had fever upon presentation to the hospital he did not have any subsequent fevers after admission (14) Gross hematuria Status: Acute Problem details: Patient developed gross hematuria while hospitalized. This improved with discontinuation of his Eliquis 5 mg twice daily. Discussion was had with the family about the cause of blood in his urine which I believe is coming from Quigley catheter irritation to the urinary tract either in the bladder or the proximal urethra. He may need urologic evaluation in the future Discharge Plan - Patient Discharge Instructions ACTIVITY: Continue current activity DIET: continue same diet Patient Instructions: Congestive Heart Failure (Alternative Therapy), Pneumonia-Adult, Heart Failure, Sepsis, DI for Heart Failure, DI for Pneumonia - - Adult, Peripherally Inserted Central Catheter, Central Line-Associated Bloodstream Infections, DI for Sepsis -- Adult, DI for Central Line-Associated Bloodstream Infections - Follow up Plan Follow up with: Rayshawn Tinsley MD [Primary Care Provider] - 05/04/19 Disposition: Home Health Service Home Medications: Home Medications Medication Instructions Recorded Confirmed Type Atorvastatin Calcium [Atorvastatin 80 mg PO HS 07/06/17 04/25/19 History 80mg Tab] Cholecalciferol (Vitamin D3) 1,000 unit PO DAILY 07/06/17 04/25/19 History [Vitamin D3 1,000 Unit Cap] Furosemide [Furosemide 20mg Tab] 2 tab PO 0900,1500 07/06/17 04/25/19 History Glimepiride 1 mg PO PM 07/06/17 04/25/19 History Sucralfate [Sucralfate 1gm 1 tab PO TID 07/06/17 04/25/19 History Tab] Tamsulosin HCl [Flomax 0.4mg 1 tab PO PM 07/06/17 04/25/19 History capsule] levETIRAcetam [Levetiracetam] 250 mg PO BID 07/06/17 04/25/19 History Hydrocodone/Acetaminophen 1 each PO TID 08/06/17 04/25/19 History [Hydrocodone-Acetamin 7.5-325] Albuterol Sulfate [Proair 2 puffs IH Q4HP PRN 04/25/19 04/25/19 History Respiclick] Apixaban [Eliquis] 5 mg PO BID 04/25/19 04/25/19 History Aspirin [Aspir 81] 81 mg PO DAILY 04/25/19 04/25/19 History Carvedilol [Carvedilol 3.125mg Tab] 3.125 mg PO BID 04/25/19 04/25/19 History Cyclobenzaprine HCl 10 mg PO BID 04/25/19 04/25/19 History [Cyclobenzaprine 10mg Tab] Ipratropium/Albuterol Sulfate 3 ml IH Q4HP PRN 04/25/19 04/25/19 History [Duoneb 3mL neb] Lisinopril [Lisinopril 10mg Tab] 10 mg PO DAILY 04/25/19 04/25/19 History Multivitamin [Multi-Vitamin Plain] 1 each PO DAILY 04/25/19 04/25/19 History Pantoprazole Sodium [Protonix 40mg 40 mg PO DAILY 04/25/19 04/25/19 History tablet] Psyllium Husk [Metamucil] 30 ml PO BID 04/25/19 04/25/19 History Sennosides/Docusate Sodium [Senna 1 each PO DAILY 04/25/19 04/25/19 History Plus 8.6-50 mg Tablet] guaiFENesin [Mucinex] 1,200 mg PO 1500 04/25/19 04/25/19 History Apixaban [Eliquis 2.5mg tab] 2.5 mg PO BID #60 tab 05/01/19 Rx Lisinopril [Lisinopril 2.5mg Tab] 2.5 mg PO DAILY #30 tab 05/01/19 Rx Torsemide [Demadex 20mg tablet] 20 mg PO DAILY #30 tab 05/01/19 Rx predniSONE [Deltasone 10mg tablet] 10 mg PO DAILY 5 Days #5 tab 05/01/19 Rx Prescriptions/Medication Reconciliation: New predniSONE [Deltasone 10mg tablet] 10 mg PO DAILY 5 Days #5 tab Torsemide [Demadex 20mg tablet] 20 mg PO DAILY #30 tab Apixaban [Eliquis 2.5mg tab] 2.5 mg PO BID #60 tab Lisinopril [Lisinopril 2.5mg Tab] 2.5 mg PO DAILY #30 tab Continued Cholecalciferol (Vitamin D3) [Vitamin D3 1,000 Unit Cap] 1,000 unit PO DAILY Tamsulosin HCl [Flomax 0.4mg capsule] 1 tab PO PM Sucralfate [Sucralfate 1gm Tab] 1 tab PO TID Glimepiride 1 mg PO PM Atorvastatin Calcium [Atorvastatin 80mg Tab] 80 mg PO HS Hydrocodone/Acetaminophen [Hydrocodone-Acetamin 7.5-325] 1 each PO TID Psyllium Husk [Metamucil] 30 ml PO BID Pantoprazole Sodium [Protonix 40mg tablet] 40 mg PO DAILY Multivitamin [Multi-Vitamin Plain] 1 each PO DAILY Carvedilol [Carvedilol 3.125mg Tab] 3.125 mg PO BID Aspirin [Aspir 81] 81 mg PO DAILY Ipratropium/Albuterol Sulfate [Duoneb 3mL neb] 3 ml IH Q4HP PRN PRN Reason: BREATHING Albuterol Sulfate [Proair Respiclick] 2 puffs IH Q4HP PRN PRN Reason: BREATHING Sennosides/Docusate Sodium [Senna Plus 8.6-50 mg Tablet] 1 each PO DAILY guaiFENesin [Mucinex] 1,200 mg PO 1500 levETIRAcetam [Levetiracetam] 250 mg PO BID Cyclobenzaprine HCl [Cyclobenzaprine 10mg Tab] 10 mg PO BID Discontinued Furosemide [Furosemide 20mg Tab] 2 tab PO 0900,1500 Lisinopril [Lisinopril 10mg Tab] 10 mg PO DAILY Apixaban [Eliquis] 5 mg PO BID - Problem Reconciliation Problems Reviewed?: Yes
== END 2019-05-01 10:55 | disposition home health service (06) | DRG 193 ==
LOC: ER 10:22 → 2ND 10:22 → OBSVTOIN 11:28 → 2ND 12:03
PROVIDERS: ADMIT Emergency Medicine; ATTEND Family Medicine
CPT/HCPCS: 36415; 36569; 71010; 71020; 71045; 71046; 74176; 80048; 80053; 80202; 81001; 82803; 83605; 83880; 84300; 85007; 85025; 87040; 87077; 87186; 93005; 94640; 94660; 94761; 96365; 96375; 97166; 99285; C1751; J1956; J2543; J3370

== ENCOUNTER 2019-05-09 16:55 | Inpatient (IN) ==
--- NOTE | 2019-05-09 17:03 | Emergency Department Note ---
ED Disposition Clinical Impression: Somnolence Sepsis Qualifiers: Sepsis type: sepsis due to unspecified organism Sepsis acute organ dysfunction status: without acute organ dysfunction Qualified Code(s): A41.9 - Sepsis, unspecified organism Disposition: Admitted As Inpatient Condition on Discharge: Fair Referrals: Rayshawn Tinsley MD [Primary Care Provider] - - Critical Care Critical Care Time: No Attestation: On , the high probability of a clinically significant, sudden or life threatening deterioration of the following system(s) required my full and direct attention, intervention and personal management. The time I documented below is in addition to time spent performing reported procedures but includes the following listed in this critical care notation. Medical Decision Making - Medical Records Medical records reviewed: Yes: I reviewed the patient's medical records. - Levon Inquiry Pt receiving controlled substance: No Vital Signs: 05/09/19 16:57 05/09/19 17:20 Temperature 99.1 F 102.5 F H Temperature Source Oral Rectal Pulse Rate [Right Radial] 102 H 102 H Respiratory Rate 18 Blood Pressure [Right Arm] 135/70 135/70 Blood Pressure Mean [Right Arm] 91 91 Blood Pressure Source [Right Arm] Automatic Cuff Automatic Cuff Blood Pressure Position [Right Arm] Sitting 02 Sat by Pulse Oximetry 100 96 Oxygen Delivery Method Room Air Room Air - Lab Data Lab Results 05/09/19 17:35: WBC 17.2 H, RBC 3.76 L, Hgb 10.6 L, Hct 33.8 L, MCV 90.0, MCH 28.1, MCHC 31.2 L, RDW 18.2 H, Plt Count 323, MPV 8.8, Neut % (Auto) 91.4 H, Lymph % (Auto) 3.2 L, [place] % (Auto) 4.7, Eos % (Auto) 0.4, Baso % (Auto) 0.3, Neut # (Auto) 15.7 H, Lymph # (Auto) 0.6 L, [place] # (Auto) 0.8, Eos # (Auto) 0.1, Baso # (Auto) 0.1, Total Counted 100, Neutrophils % (Manual) 90 H, Lymphocytes % (Manual) 4 L, Monocytes % (Manual) 6, Platelet Estimate Normal, Poikilocytosis 1+, Anisocytosis 1+, Acanthocytes (Spur) 1+ 05/09/19 17:35: Sodium 134 L, Potassium 4.2, Chloride 97 L, Carbon Dioxide 29, Anion Gap 12.2, BUN 50 H, Creatinine 1.78 H, Estimated Creat Clear 41, Estimated GFR 37 L, Est GFR ( Amer) 45 L, Glucose 201 H, Calcium 8.1 L, Total Bilirubin 0.9, AST 16, ALT 40, Alkaline Phosphatase 86, Total Protein 6.1 L, Albumin 2.5 L, Globulin 3.6 H, Albumin/Globulin Ratio 0.7 L 05/09/19 17:35: Lactate 1.6 05/09/19 18:00: Ammonia 23 05/09/19 18:30: Urine Color Yellow, Urine Appearance Clear, Urine pH 5.5, Ur Specific [place] 1.020, Urine Protein 1+, Urine Glucose (UA) Negative, Urine Ketones Negative, Urine Blood 3+, Urine Nitrate Negative, Urine Bilirubin Negative, Urine Urobilinogen 0.2, Ur Leukocyte Esterase 2+ A Result diagrams: 05/09/19 17:35 05/09/19 17:35 Orders (Tests/Meds): ED MEDICATIONS Generic Name Dose Route Start Last Admin Trade Name Freq PRN Reason Stop Dose Admin Levofloxacin/Dextrose 750 mg in 150 mls @ 100 mls/hr 05/09/19 17:30 05/09/19 18:40 Levofloxacin 750mg/150ml Premix IV 05/23/19 17:29 100 mls/hr Q24H NIKIA Administration Protocol Vancomycin HCl 1,500 mg/ 250 mls @ 125 mls/hr 05/09/19 18:38 Sodium Chloride IV 05/09/19 20:37 ONCE ONE Miscellaneous 1 each 05/09/19 17:30 05/09/19 18:38 Vancomycin Consult Request * 06/08/19 17:29 1 each CONSULT PHARMACY NIKIA Administration Discontinued Medications Generic Name Dose Route Start Last Admin Trade Name Freq PRN Reason Stop Dose Admin Acetaminophen 1,000 mg 05/09/19 17:57 05/09/19 18:40 Tylenol 500mg Tablet PO 05/09/19 17:58 1,000 mg ONCE ONE Administration Piperacillin Sod/Tazobactam 100 mls @ 200 mls/hr 05/09/19 17:21 05/09/19 17:39 Sod 4.5 gm/ Sodium Chloride IV 05/09/19 17:50 200 mls/hr ONCE STA Administration Protocol ORDERS Category Date Time Status Chest XR -- portable [XR chest portable] Stat Exams 05/09/19 17:16 Taken Drug Screen,Urine Stat Lab 05/09/19 17:17 Ordered Flu A&B Antigens, Rapid [Rapid Influenza A&B Antigens] Lab 05/09/19 18:31 Received Stat Urinalysis (cathed specimen) Stat Lab 05/09/19 18:30 Results Blood Culture Stat Micro 05/09/19 17:35 Received Urine Culture(cathed specimen) Stat Micro 05/09/19 18:30 Received - Radiology Data #1 Image(s): Chest Image Reviewed: Yes I reviewed the patient's radiology image Residual right sided pneumonia improved from previous chest x-ray, persistent left pleural effusion - ECG Data Tracing #1 I reviewed this ECG and interpreted as documented below: EKG shows a sinus tachycardia with a rate of 101. No acute ST segment elevation or depression. No hyperacute T waves. Normal intervals. EKG interpreted by me. PACs present. Medical Decision Narrative: Patient remains hemodynamically stable here. He does meet sepsis criteria, but will not do any large volume fluid resuscitation given his recent history of CHF. He was covered empirically with vancomycin, Zosyn, Levaquin. Chest x-ray does appear to have residual pneumonia and pleural effusion, but appears slightly improved with previous chest x-ray from earlier this month. Urinalysis negative for infection. Flu swab pending. PICC line remains a source of po tential infection. Will admit for further management. I discussed his case with Dr. Jimenez who will admit for Dr. Tinsley. General Adult HPI - General Stated complaint: confusion low temp Time Seen by Provider: 05/09/19 17:03 Mode of Arrival: Wheelchair Source of Information: Patient Limitations: No Limitations - History of Present Illness HPI narrative: This is a 73-year-old male with a past medical history significant for hypertension, hyperlipidemia, coronary artery disease, CHF, multiple recent hospitalizations for pneumonia who presents to the emergency department for increased somnolence x 2 days. Family states that over the last several days he has had increased sleepiness, difficulty maintaining a consistent conversation. Patient states that he "feels like shit", but this is unchanged from his baseline. He has a PICC line in place for [facility] receiving IV [facility] for pneumonia. He completed a 7-day course of IV antibiotics in the hospital and has been off of antibiotics for about a week since discharge. He has had an indwelling Quigley for several weeks, it is unclear if this has been changed or not. Family noted a low-grade temperature today of 99.5. He has been receiving home health care since discharge about 1 week ago. He does not describe any difficulty breathing and family has not noted this as well. No new cough. No history of liver problems or hyperammonemia. He has chronic abdominal pain and this is unchanged. They have not noted any drainage or redness around the PICC line site. He does have a hi story of left ventricular thrombus noted at , has been on Eliquis 2.5 mg twice daily. - Related Data Home Medications Medication Instructions Recorded Confirmed Atorvastatin Calcium [Atorvastatin 80 mg PO HS 07/06/17 04/25/19 80mg Tab] Cholecalciferol (Vitamin D3) 1,000 unit PO DAILY 07/06/17 04/25/19 [Vitamin D3 1,000 Unit Cap] Glimepiride 1 mg PO PM 07/06/17 04/25/19 Sucralfate [Sucralfate 1gm 1 tab PO TID 07/06/17 04/25/19 Tab] Tamsulosin HCl [Flomax 0.4mg 1 tab PO PM 07/06/17 04/25/19 capsule] levETIRAcetam [Levetiracetam] 250 mg PO BID 07/06/17 04/25/19 Hydrocodone/Acetaminophen 1 each PO TID 08/06/17 04/25/19 [Hydrocodone-Acetamin 7.5-325] Albuterol Sulfate [Proair 2 puffs IH Q4HP PRN 04/25/19 04/25/19 Respiclick] Aspirin [Aspir 81] 81 mg PO DAILY 04/25/19 04/25/19 Carvedilol [Carvedilol 3.125mg Tab] 3.125 mg PO BID 04/25/19 04/25/19 Cyclobenzaprine HCl 10 mg PO BID 04/25/19 04/25/19 [Cyclobenzaprine 10mg Tab] Ipratropium/Albuterol Sulfate 3 ml IH Q4HP PRN 04/25/19 04/25/19 [Duoneb 3mL neb] Multivitamin [Multi-Vitamin Plain] 1 each PO DAILY 04/25/19 04/25/19 Pantoprazole Sodium [Protonix 40mg 40 mg PO DAILY 04/25/19 04/25/19 tablet] Psyllium Husk [Metamucil] 30 ml PO BID 04/25/19 04/25/19 Sennosides/Docusate Sodium [Senna 1 each PO DAILY 04/25/19 04/25/19 Plus 8.6-50 mg Tablet] guaiFENesin [Mucinex] 1,200 mg PO 1500 04/25/19 04/25/19 Previous Rx's Medication Instructions Recorded Apixaban [Eliquis 2.5mg tab] 2.5 mg PO BID #60 tab 05/01/19 Lisinopril [Lisinopril 2.5mg Tab] 2.5 mg PO DAILY #30 tab 05/01/19 Torsemide [Demadex 20mg tablet] 20 mg PO DAILY #30 tab 05/01/19 predniSONE [Deltasone 10mg tablet] 10 mg PO DAILY 5 Days #5 tab 05/01/19 Allergies Allergy/AdvReac Type Severity Reaction Status Date / Time baclofen Allergy Severe SWELLING Verified 05/23/18 13:42 gabapentin [From NEURONTIN] Allergy Mild Verified 05/23/18 13:42 metformin [METFORMIN] Allergy Mild Verified 05/23/18 13:42 morphine [MORPHINE] Allergy Mild Verified 05/23/18 13:42 [facility] History - Hepatitis A Screen Attestation statement:: This patient has been screened for Hepatitis A risk factors. I have reviewed the patient's past medical history: Yes Medical History: Reports:: Atherosclerotic Heart Disease, Congestive Heart Failure, Chronic Obstructive Pulmonary Disease (COPD), Diabetes Mellitus Type 2, Gastroesophageal Reflux Disease(GERD), Gastrointestinal Bleed, Hyperlipidemia, Hypertension, Myocardial Infarction, Peripheral Artery Disease, Peripheral Vascular Disease, Seizures Denies:: Cancer, Diabetes Mellitus Type 1, MRSA Other Medical History: Reports: Anemia Comment: Internal and external hemorrhoids Other Surgeries: Yes: Cardiac Catheterization, Coronary Stent Amputation: No Fractures: No Comment: Cervical spine surgery - Social History Smoking Status: Former smoker Tobacco Type: cigarettes # Packs/Day (cigarettes): 1 Alcohol Intake: never Alcohol Intake Frequency:: other Substance Use Type: denies use Occupational Status: retired Housing: house Household Members: children Family Hx:: Cancer, Coronary Artery Disease, Diabetes, Heart Attack, Hyperlipidemia, Hypertension, Kidney Disease, Stroke ROS Obtained: Yes All systems reviewed & no additional complaints Physical Exam - General General appearance: alert, in no apparent distress - Head Head exam: atraumatic, normocephalic, normal inspection - Eye Eye exam: Present: normal appearance, PERRL, EOMI - Respiratory Respiratory exam: Present: normal lung sounds bilaterally. Absent: respiratory distress - Cardiovascular Cardiovascular exam: Present: normal rhythm, tachycardia. Absent: JVD - Abdominal Exam Abdominal exam: Present: soft, tenderness, normal bowel sounds, other (Generalized tenderness). Absent: distention, guarding - Neurological Exam Neurological exam: Present: oriented X3, other (Somnolent, but easily arousable) - Skin Skin exam: Present: warm, dry, intact, normal color
[2019-05-09 17:53] LABS: Basophils # 0.1 K/mm3 (0-0.2); Basophils % 0.3 % (0.1-2.0); Eosinophils # 0.1 K/mm3 (0.0-0.4); Eosinophils % 0.4 % (0.1-12.0); Hematocrit 33.8 % (42.0-52.0); Hemoglobin 10.6 g/dL (14.1-18.0); Lymphocytes # 0.6 K/mm3 (0.7-4.5); Lymphocytes % 3.2 % (10-50); Mean Corpuscular HGB Conc 31.2 g/dL (31.8-35.4); Mean Platelet Volume 8.8 fl (7.4-10.4); Monocytes # 0.8 K/mm3 (0.1-1.0); Monocytes % 4.7 % (1.7-9.3); Neutrophils # 15.7 K/mm3 (1.8-7.8); Neutrophils % 91.4 % (37.0-80.0); Platelet Count 323 K/mm3 (142-424); Red Blood Count 3.76 M/mm3 (4.60-6.20); Red Cell Distribution Width 18.2 % (11.5-17.5); White Blood Count 17.2 K/mm3 (4.8-10.8)
[2019-05-09 18:06] LABS: Albumin Level 2.5 gm/dL (3.4-5.0); Albumin/Globulin Ratio 0.7 (1.1-1.8); Anion Gap 12.2 mEq/L (5-15); Bilirubin,Total 0.9 mg/dL (0.2-1.0); Calcium 8.1 mg/dL (8.5-10.1); Globulin 3.6 gm/dl (1.3-3.2); Total Protein,Serum 6.1 gm/dL (6.4-8.2)
[2019-05-09 18:18] LABS: Anisocytosis 1+; Lymphocytes % 4 % (10-50); Monocytes % 6 % (2-9); Neutrophils % 90 % (42-76); Total Cells Counted 100
--- NOTE | 2019-05-10 07:25 | History & Physical Report ---
*Admission Date: 05/09/19 *Chief complaint: Loss of energy *History of present illness: 73-year-old male with recent hospitalization for pneumonia return to the emergency department yesterday afternoon because of perceived change in his energy level along with somnolence over the last 2 days. This morning history is taken from the patient himself and he does note that he felt really tired yesterday. He did not feel like participating with home health physical therapy. According to the patient whenever he decided not to participate it was advised that he go to the emergency department. ER note reports that family believes he was having some low-grade fevers but had had a noticeable change in his level of activity and alertness. Patient did have a fever of 102.5 in the emergency department. Work-up was performed. Patient met checklist criteria for diagnosis of sepsis. His chest x-ray showed improvement in pneumonia for which she was treated for at his prior hospitalization. Urinalysis had 2+ leuk esterase with 20-50 white blood cells. Patient does have a PICC line. As the patient had multiple potential sources of infection patient was covered with broad-spectrum antibiotics in the emergency department and admitted. This morning patient reports that he feels about the same. [facility] History I have reviewed the patient's past medical history: Yes Medical History: Reports:: Atherosclerotic Heart Disease, Congestive Heart Failure, Chronic Obstructive Pulmonary Disease (COPD), Coronary Artery Disease, Diabetes Mellitus Type 2, Gastroesophageal Reflux Disease(GERD), Gastrointestinal Bleed, Hyperlipidemia, Hypertension, Myocardial Infarction, Peripheral Artery Disease, Peripheral Vascular Disease, Seizures Denies:: Cancer, Diabetes Mellitus Type 1, MRSA *Have you ever received a pneumonia vaccine?: Yes *Have you received a flu vaccine this season?: No (needs) Other Medical History: Reports: Anemia Comment:: Left ventricular thrombus, mesenteric ischemia Other Surgeries: Yes: Cardiac Catheterization, Coronary Stent Amputation: No Fractures: No - *Social History Educational Level: Attended High School Smoking Status: Former smoker Tobacco Type: cigarettes # Packs/Day (cigarettes): 1 #Yrs smoked (if former smoker): 61 Smoking End Date: 06/2016 Alcohol Intake: never Alcohol Intake Frequency:: other Substance Use Type: denies use *Occupational Status:: retired Housing: house Household Members: children *Travel in the last 8 weeks: None Family Hx:: Cancer, Diabetes, Heart Attack, Hyperlipidemia, Hypertension, Kidney Disease, Stroke Review of Systems - Review of Systems Review of systems:: pertinent systems reviewed and negative unless documented below - Constitutional Reports body ache(s), Reports daytime sleepiness, Reports fatigue, Reports fever(s), Reports lack of energy, Reports weakness, Denies chills, Denies excessive sweating - *Cardiovascular Denies excessive sweating - *Respiratory Denies chest congestion, Denies cough, Denies shortness of breath - *Gastrointestinal Reports abdominal pain, Reports bloating, Reports change in bowel habits, Denies belching - *Genitourinary Reports difficulty urinating (Patient has Quigley catheter) Meds Home Medications Medication Instructions Recorded Confirmed Type Atorvastatin Calcium [Atorvastatin 80 mg PO HS 07/06/17 05/10/19 History 80mg Tab] Cholecalciferol (Vitamin D3) 1,000 unit PO DAILY 07/06/17 05/10/19 History [Vitamin D3 1,000 Unit Cap] Glimepiride 1 mg PO PM 07/06/17 05/10/19 History Sucralfate [Sucralfate 1gm 1 tab PO TID 07/06/17 05/10/19 History Tab] Tamsulosin HCl [Flomax 0.4mg 1 tab PO PM 07/06/17 05/10/19 History capsule] levETIRAcetam [Levetiracetam] 250 mg PO BID 07/06/17 05/10/19 History Hydrocodone/Acetaminophen 7.5 each PO TID 08/06/17 05/10/19 History [Hydrocodone-Acetamin 7.5-325] Albuterol Sulfate [Proair 2 puffs IH Q4HP PRN 04/25/19 05/10/19 History Respiclick] Aspirin [Aspir 81] 81 mg PO DAILY 04/25/19 05/10/19 History Carvedilol [Carvedilol 3.125mg Tab] 3.125 mg PO BID 04/25/19 05/10/19 History Cyclobenzaprine HCl 10 mg PO BID 04/25/19 05/10/19 History [Cyclobenzaprine 10mg Tab] Ipratropium/Albuterol Sulfate 3 ml IH Q4HP PRN 04/25/19 05/10/19 History [Duoneb 3mL neb] Multivitamin [Multi-Vitamin Plain] 1 each PO DAILY 04/25/19 05/10/19 History Pantoprazole Sodium [Protonix 40mg 40 mg PO DAILY 04/25/19 05/10/19 History tablet] Psyllium Husk [Metamucil] 30 ml PO BID 04/25/19 05/10/19 History Sennosides/Docusate Sodium [Senna 1 each PO DAILY 04/25/19 05/10/19 History Plus 8.6-50 mg Tablet] guaiFENesin [Mucinex] 1,200 mg PO 1500 04/25/19 05/10/19 History Apixaban [Eliquis 2.5mg tab] 2.5 mg PO BID 05/09/19 05/10/19 History Lisinopril [Lisinopril 2.5mg Tab] 2.5 mg PO DAILY 05/09/19 05/10/19 History Torsemide [Demadex 20mg tablet] 20 mg PO DAILY 05/09/19 05/10/19 History predniSONE [Deltasone 10mg tablet] 10 mg PO DAILY 05/09/19 05/10/19 History Allergies Allergy/AdvReac Type Severity Reaction Status Date / Time baclofen Allergy Severe SWELLING Verified 05/23/18 13:42 gabapentin [From NEURONTIN] Allergy Mild Verified 05/23/18 13:42 metformin [METFORMIN] Allergy Mild Verified 05/23/18 13:42 morphine [MORPHINE] Allergy Mild Verified 05/23/18 13:42 Exam Vital signs and Labs for Last 24 Hours: Temp Pulse Resp BP Pulse Ox 98.9 F 68 18 133/64 95 05/10/19 03:50 05/10/19 03:50 05/10/19 03:50 05/10/19 03:50 05/10/19 03:50 Laboratory Results - last 24 hr 05/09/19 17:35: WBC 17.2 H, RBC 3.76 L, Hgb 10.6 L, Hct 33.8 L, MCV 90.0, MCH 28.1, MCHC 31.2 L, RDW 18.2 H, Plt Count 323, MPV 8.8, Neut % (Auto) 91.4 H, Lymph % (Auto) 3.2 L, [place] % (Auto) 4.7, Eos % (Auto) 0.4, Baso % (Auto) 0.3, Neut # (Auto) 15.7 H, Lymph # (Auto) 0.6 L, [place] # (Auto) 0.8, Eos # (Auto) 0.1, Baso # (Auto) 0.1, Total Counted 100, Neutrophils % (Manual) 90 H, Lymphocytes % (Manual) 4 L, Monocytes % (Manual) 6, Platelet Estimate Normal, Poikilocytosis 1+, Anisocytosis 1+, Acanthocytes (Spur) 1+ 05/09/19 17:35: Sodium 134 L, Potassium 4.2, Chloride 97 L, Carbon Dioxide 29, Anion Gap 12.2, BUN 50 H, Creatinine 1.78 H, Estimated Creat Clear 41, Estimated GFR 37 L, Est GFR ( Amer) 45 L, Glucose 201 H, Calcium 8.1 L, Total Bilirubin 0.9, AST 16, ALT 40, Alkaline Phosphatase 86, Total Protein 6.1 L, Albumin 2.5 L, Globulin 3.6 H, Albumin/Globulin Ratio 0.7 L 05/09/19 17:35: Lactate 1.6 05/09/19 18:00: Ammonia 23 05/09/19 18:30: Urine Color Yellow, Urine Appearance Clear, Urine pH 5.5, Ur Specific [place] 1.020, Urine Protein 1+, Urine Glucose (UA) Negative, Urine Ketones Negative, Urine Blood 3+, Urine Nitrate Negative, Urine Bilirubin Negati ve, Urine Urobilinogen 0.2, Ur Leukocyte Esterase 2+ A, Urine RBC 5-10, Urine WBC 10-20 A, Ur Squamous Epith Cells Occasional, Urine Bacteria Trace 05/09/19 18:31: Influenza Type A Ag Negative, Influenza Type B Ag Negative I & O for Last 24 hours: Intake & Output 05/07/19 05/08/19 05/09/19 05/10/19 11:59 11:59 11:59 11:59 Intake Total 270 / 270 Output Total 650 / 650 Balance -380 / -380 Weight 175 lb 9 oz Narrative: Patient looks comfortable in bed and may be slightly tachypneic. Oropharynx is moist. Neck has no carotid bruits or lymphadenopathy. Lungs have diminished breath sounds posteriorly at the bases with crackles at the left base. This is similar exam to discharge from hospital at last visit. Heart has a regular rate and rhythm. Abdomen is soft with bilateral lower quadrant tenderness but no rebound tenderness or guarding. Bowel sounds are present. Patient has 1+ edema of the thighs and 3+ edema of the bilateral lower extremities below the legs. Assessment and Plan (1) Sepsis Problem details: She was considered septic on admission and was treated as such with broad-spectrum antibiotic and fluid resuscitation. Blood cultures were negative except for 1 anaerobic culture that grew staph epidermidis and this was considered a contaminant. While patient had fever upon presentation to the hospital he did not have any subsequent fevers after admission Current visit: Yes Status: Acute Qualifiers: Sepsis type: sepsis due to unspecified organism Sepsis acute organ dysfunction status: without acute organ dysfunction Qualified Code(s): A41.9 - Sepsis, unspecified organism Category: Medical Code(s): A41.9 - Sepsis, unspecified organism 1. Patient received broad-spectrum coverage in the emergency department yesterday. I will continue the patient on IV Levaquin. Repeat CBC and BMP this morning 2. Due to the patient's tenuous volume status he was not given IV fluids and I agree with this decision. Patient has an ejection fraction of 20%. He will be continued on his torsemide 3. Continue all home medications while awaiting blood and urine cultures. Should blood cultures be positive PICC line will need to be removed. (2) Diabetes mellitus Current visit: Yes Status: Acute Category: Medical Code(s): E11.9 - Type 2 diabetes mellitus without complications (3) UTI (urinary tract infection) Current visit: No Status: Acute Qualifiers: Urinary tract infection type: site unspecified Hematuria presence: without hematuria Qualified Code(s): N39.0 - Urinary tract infection, site not specified Category: Medical Code(s): N39.0 - Urinary tract infection, site not specified (4) BPH (benign prostatic hyperplasia) Current visit: No Status: Chronic Category: Medical Code(s): N40.0 - Benign prostatic hyperplasia without lower urinary tract symptoms (5) CAD (coronary artery disease) Current visit: No Status: Chronic Qualifiers: Coronary Disease-Associated Artery/Lesion type: [place] artery [place] vs. transplanted heart: nond[place]ton heart Associated angina: without angina Qualified Code(s): I25.10 - Atherosclerotic heart disease of nond[place] coronary artery without angina pectoris Category: Medical Code(s): I25.10 - Atherosclerotic heart disease of nond[place] coronary artery without angina pectoris (6) COPD (chronic obstructive pulmonary disease) Problem details: Patient has underlying COPD. He was started on prednisone 20 mg daily midway through hospitalization due to mild wheezing along with breathing treatments. Current visit: No Status: Chronic Qualifiers: COPD type: emphysema Category: Medical Code(s): J44.9 - Chronic obstructive pulmonary disease, unspecified (7) Chronic kidney disease Current visit: No Status: Chronic Category: Medical Code(s): N18.9 - Chronic kidney disease, unspecified (8) Chronic mesenteric ischemia Problem details: Patient has chronic mesenteric ischemia which did not cause any symptoms during hospitalization. He will be following with [facility] as an outpatient Current visit: No Status: Chronic Category: Medical Code(s): K55.1 - Chronic vascular disorders of intestine (9) Left ventricular thrombus Problem details: Patient was also diagnosed as having a left ventricular thrombus at his hospitalization at the [facility]. He was started on Eliquis for this. During his hospitalization patient developed blood in his urine as well as frequent bleeding from around his PICC line. Eliquis was discontinued temporarily in favor of subcutaneous Lovenox. Discussion was had with the family about the importance of patient being on anticoagulant although this also increases his risk of bleeding and the patient does bruise rather easily even prior to use of anticoagulants. We opted to proceed with Eliquis 2.5 mg twice daily. Current visit: No Status: Chronic Category: Medical Code(s): I51.3 - Intracardiac thrombosis, not elsewhere classified (10) Urinary retention Problem details: Patient had a Quigley catheter on admission and this was continued during hospitalization not only due to his urinary retention and long history of incomplete bladder emptying but also because of the penile and scrotal edema that the patient had. Consideration was given to discontinuation of the catheter when patient developed bleeding but family preferred state and. Current visit: No Status: Chronic Category: Medical Code(s): R33.9 - Retention of urine, unspecified
--- NOTE | 2019-05-10 07:27 | Pharmacy Consult Notes ---
[facility] Pharmacy VTE Monitoring - Patient Demographics Admission date: 05/09/19 Report Date: 05/10/19 Time: 07:27 Allergies/Adverse Reactions: Patient Allergies baclofen Allergy (Severe, Verified 05/23/18 13:42) SWELLING gabapentin [From NEURONTIN] Allergy (Mild, Verified 05/23/18 13:42) metformin [METFORMIN] Allergy (Mild, Verified 05/23/18 13:42) morphine [MORPHINE] Allergy (Mild, Verified 05/23/18 13:42) Height: 1.73 m Weight: 79.634 kg Patient Problems: Current Active Problems Sepsis (Acute) Somnolence (Acute) - VTE Risk Labs: VTE Related Lab Results Hgb 10.6 g/dL (14.1-18.0) L 05/09/19 17:35 Hct 33.8 % (42.0-52.0) L 05/09/19 17:35 Plt Count 323 K/mm3 (142-424) 05/09/19 17:35 BUN 50 mg/dL (7-18) H 05/09/19 17:35 Creatinine 1.78 mg/dL (0.70-1.30) H 05/09/19 17:35 Estimated Creat Clear 41 mL/min (50-200) 05/09/19 17:35 Was VTE Risk Assessment Performed: Yes VTE Score: 6 VTE Risk Level: Moderate Risk - Prophylaxis VTE Prophylaxis Ordered?: Yes Types of VTE Prophylaxis: Pharmacological Pharmacologic Type: Other (ELIQUIS) - VTE Diagnosis Confirmed Treatment or plan recommended: Continue Current Treatment
[2019-05-10 08:44] LABS: Basophils # 0.1 K/mm3 (0-0.2); Basophils % 0.3 % (0.1-2.0); Eosinophils # 0.1 K/mm3 (0.0-0.4); Eosinophils % 0.9 % (0.1-12.0); Hematocrit 32.6 % (42.0-52.0); Hemoglobin 10.1 g/dL (14.1-18.0); Lymphocytes # 0.7 K/mm3 (0.7-4.5); Lymphocytes % 4.8 % (10-50); Mean Corpuscular HGB Conc 31.2 g/dL (31.8-35.4); Mean Corpuscular Volume 89.6 fl (80-94); Mean Platelet Volume 8.9 fl (7.4-10.4); Monocytes # 0.9 K/mm3 (0.1-1.0); Neutrophils # 13.1 K/mm3 (1.8-7.8); Platelet Count 282 K/mm3 (142-424); Red Blood Count 3.63 M/mm3 (4.60-6.20); Red Cell Distribution Width 18.3 % (11.5-17.5); White Blood Count 14.9 K/mm3 (4.8-10.8)
--- NOTE | 2019-05-10 11:36 | Electrocardiograph Report ---
APPROVED REPORT Exam: Resting ECG HR:101 bpm ECG Measurements Heart Rate 101 AXES TN 142 P 78 QRSd 104 QRS 107 QT 368 T39 QTc 477 <Conclusion> Sinus tachycardia with premature atrial complexes Left atrial abnormality Rightward axis Nonspecific ST and T wave abnormality Abnormal ECG Electronically signed by : Rayshawn Toth, 05/10/2019 11:35:55
[2019-05-10 12:52] LABS: Anisocytosis 1+; Eosinophils % 1 % (0-3); Lymphocytes % 8 % (10-50); Monocytes % 7 % (2-9); Neutrophils % 84 % (42-76); Stomatocytes 1+; Total Cells Counted 100
--- OUTSIDE RECORDS SUMMARY | 2019-05-10 14:19 | External Medical Summary | Continuity of Care Document ---
:1945 Author Organization [facility] Address [address] [facility] [address] MALLORY Lyons Neeraj Phone Care Team Providers Name Role Phone Laureano Primary Care Provider Laureano Attending Provider China Jimenez Attending Provider Allergies, Adverse Reactions, Alerts Allergen Type Severity Reaction Last Verified Status Updated baclofen Allergy Severe SWELLING Yes Active gabapentin Allergy Mild Yes Active metformin Allergy Mild Yes Active morphine Allergy Mild Yes Active Medications Medication Status Dose Units Route Sig Qty Days Start End Instruct ions Date Date Atorvastatin Active 80 MG Oral At June Calcium bedtime ly 2017 11:08pm Cholecalciferol Active 1000 UNIT Oral Daily June (Vitamin D3) 2017 11:08pm Glimepiride Active 1 MG Oral Every June evening 2017 11:08pm Levetiracetam Active 250 MG Oral Twice a June 11:08pm Sucralfate Active 1 TAB Oral Three June times 2017 11:08pm Tamsulosin Hcl Active 0.4 MG Oral Every June 11:08pm Hydrocodone/Tae Active 1 EACH Oral July taminophen 2017 9:07am Aspirin Active 81 MG Oral Daily April 25, 2019 10:28am Carvedilol Active 3.125 MG Oral Twice a March 10:28am Cyclobenzaprine Active 10 MG Oral March a 2018 10:28am Multivitamin Active 1 EACH Oral Daily April 25, 2019 10:28am Pantoprazole Active 40 MG Oral Daily March 10:28am Psyllium Husk Active 30 ML Oral Twice a March 10:28am Albuterol Active 2 PUFFS INHALATIO Every 4 March Sulfate N hours 2018 needed 12:27pm Ipratropium/Alb Active 3 ML INHALATIO Every 30 March uterol Sulfate N hours 2018 needed 12:27pm Guaifenesin Active 1200 MG Oral 1500 April 25, 2019 2:32pm Sennosides/Docu Active 1 EACH Oral Daily March 2:32pm Apixaban Active 2.5 MG Oral Twice a April 9:33pm Lisinopril Active 2.5 MG Oral Daily May 09, 2019 9:33pm Torsemide Active 20 MG Oral Daily May 09, 2019 9:33pm Problems Active Problems Medical Problem Onset Date Status Acute kidney injury Active UTI (urinary tract infection) Active BPH (benign prostatic hyperplasia) Activ e Somnolence Active Diabetes mellitus Active GI bleeding Active Thoracic myofascial strain Active CAD (coronary artery disease) Active Acute CHF (congestive heart failure) Act libertad Stable angina Active Coagulopathy Active Dysuria Active Internal hemorrhoids Active External hemorrhoids Active External hemorrhoids Active Hyperlipidemia Active Chronic kidney disease Active Acute on chronic systolic heart Active failure, NYHA class 3 Gross hematuria Active Healthcare-associated pneumonia Active Renal insufficiency Active Urinary retention Active Acute bronchitis Active Chronic mesenteric ischemia Active Iron deficiency anemia Active Sepsis Active Rectal bleeding Active Chronic renal insufficiency Active COPD (chronic obstructive pulmonary Acti ve disease) Lower GI bleed Active History of colon polyps Active Acute retention of urine Active Emphysematous gastritis Active Left ventricular thrombus Active Hemorrhoids Active Hypertension Active Procedures Procedure Date Performed Status XR chest portable May 09, [address] head/brain wo con May 09, 2019 completed ECG initial Besson May 09, 2019 completed Gram Stain May 09, 2019 completed Sputum Culture May 09, 2019 completed Urine Culture May 09, 2019 active Blood Culture May 09, 2019 active XR chest portable April 25, 2019 completed ECG Request by Dr/Shital April 25, 2019 active XR chest 2V April 27, 2019 completed ECG initial Chalino April 25, [address] abdomen pelvis wo con April 28, 2019 completed XR chest portable April 28, 2019 completed Blood Culture April 25, 2019 completed Blood Culture April 25, [address] abdomen pelvis w con April 06, 2019 completed Blood Culture April 06, 2019 completed Urine Culture April 06, 2019 completed Relevant Diagnostic Tests and/or Laboratory Data Laboratory Results Test Date/Time Result Interpretation Reference Result Perfo rming Range Comment Site White Blood March 8.6 K/mm3 4.8-10.8 [facility], [address] [place] [address] 36 E Count 2018 [place] [address] 6:58pm White Blood April 11.2 K/mm3 4.8-10.8 [facility], [address] [place] [address] E Count 2018 [place] [address] 5:30am White Blood April 14.9 K/mm3 4.8-10.8 [facility], [address] [place] [address] E Count 2018 [place] [address] 8:30am Red Blood March 4.34 M/mm3 4.60-6.20 [facility], [address] [place] [address] E Count 2018 [place] [address] 6:58pm Red Blood April 3.56 M/mm3 4.60-6.20 [facility], [address] [place] [address] E Count 2018 [place] [address] 5:30am Red Blood April 3.63 M/mm3 4.60-6.20 [facility], [address] [place] [address] E Count 2018 [place] [address] 8:30am Hemoglobin March 11.5 g/dL 14.1-18.0 [facility], [address] [place] [address] 36 E 2018 [place] [address] 6:58pm Hemoglobin April 9.7 g/dL 14.1-18.0 [facility], [address] [place] [address] 36 E 2018 [place] [address] 5:30am Hemoglobin April 10.1 g/dL 14.1-18.0 [place] [address] E 2018 [place] [address] 8:30am Hematocrit March 38.9 % 42.0-52.[address] 36 E 2018 [place] [address] 6:58pm Hematocrit April 32.6 % 42.0-52.0 [facility], [address] [place] [address] E 2018 [place] [address] 5:30am Hematocrit April 32.6 % 42.0-52.0 [facility], [address] [place] [address] E 2018 [place] [address] 8:30am Mean March 89.5 fl 80-94 [facility], [address] [place] [address] E Corpuscular 2018 Sherine TEJADA [address] Volume 6:58pm Mean April 91.6 fl 80-94 [facility], [address] [place] [address] E Corpuscular 2018 Benito TEJ[place] 678[address] Volume 5:30am Mean April 89.6 fl 80-94 [facility], [address] [place] [address] E Corpuscular 2018 Sherine [place] 81600 Volume 8:30am Mean March 26.4 pg 27.0-31.2 [facility], [address] [place] [address] E Corpuscular 2018 Sherine TE[place] 695[address] Hemoglobin 6:58pm Mean April 27.3 pg 27.0-31.2 [facility], [address] [place] [address] E Corpuscular 2018 Benito TEJ[place] 745[address] Hemoglobin 5:30am Mean April 27.9 pg 27.0-31.2 [facility], [address] [place] [address] E Corpuscular 2018 Sherine TE[place] 24474 Hemoglobin 8:30am Mean March 29.5 g/dL 31.8-35.4 [facility], [address] [place] [address] E Corpuscular 2018 Sherine TEJ[place] 76167 Hemoglobin 6:58pm Concent Mean April 29.8 g/dL 31.8-35.4 [facility], [address] [place] [address] E Corpuscular 2018 Benito TEJ[place] 569[address] Hemoglobin 5:30am Concent Mean April 31.2 g/dL 31.8-35.4 [facility], [address] [place] [address] E Corpuscular 2018 Sherine TEJADA 02352 Hemoglobin 8:30am Concent Red Cell March 15.9 % 11.5-17.5 [facility], [address] [place] [address] 36 E Distribution 2018 Neetu TEJADA 239[address] Width 6:58pm Red Cell April 17.4 % 11.5-17.5 [facility], [address] [place] [address] E Distribution 2018 Sherine TE[place] 90299 Width 5:30am Red Cell April 18.3 % 11.5-17.5 [facility], [address] [place] [address] E Distribution 2018 Neetu TEJ[place] 54122 Width 8:30am Platelet Count March 349 K/mm3 142-424 [facility], [address] [place] [address] E 2018 Eloy TEJADA 70188 6:58pm Platelet Count April 255 K/mm3 142-424 [facility], [address] [place] [address] 36 E 2018 Eloy TEJ[place] 95366 5:30am Platelet Count April 282 K/mm3 142-424 [facility], [address] [place] [address] E 2018 Eloy Vickers31 8:30am Mean Platelet March 8.2 fl 7.4-10.4 [facility], [address] [place] [address] E Volume 2018 Eloy TEJ[place] 59755 6:58pm Mean Platelet April 10.0 fl 7.4-10.4 [facility], [address] [place] [address] E Volume 2018 Eloy TEJ[place] 59387 5:30am Mean Platelet April 8.9 fl 7.4-10.4 [facility], [address] [place] [address] E Volume 2018 Eloy TEJADA 38407 8:30am Neutrophils March 72.1 % 37.0-80.0 [place] [address] E (%) (Auto) 2018 Elsatracie bridget M[place] 6:58pm Neutrophils April 80.4 % 37.0-80.0 [place] [address] E (%) (Auto) 2018 [place] Vickers31 5:30am Neutrophils April 88.0 % 37.0-80.0 [place] [address] E (%) (Auto) 2018 Benito TEJ[place] 27559 8:30am Lymphocytes March 14.0 % [facility], [address] [place] [address] E (%) (Auto) 2018 Cyntracie TEJ[place] 00740 6:58pm Lymphocytes November 9.7 % [facility], [address] [place] [address] E (%) (Auto) 2018 Eloy [place] 35107 5:30am Lymphocytes November 4.8 % [facility], [address] [place] [address] E (%) (Auto) 2018 Cyntracie TEJ[place] 04916 8:30am Monocytes (%) March 8.2 % 1.7-9.3 [facility], [address] [place] [address] E (Auto) 2018 Eloy TEJ[place] 88028 6:58pm Monocytes (%) April 9.0 % 1.7-9.3 [facility], [address] [place] [address] E (Auto) 2018 Eloy TE[place] 72132 5:30am Monocytes (%) April 6.0 % 1.7-9.3 [facility], [address] [place] [address] E (Auto) 2018 El[place] TE[place] 07779 8:30am Eosinophils March 5.0 % 0.1-12.0 [place] [address] E (%) (Auto) 2018 Cyntracie TEJ[place] 67855 6:58pm Eosinophils November 0.6 % 0.1-12.0 [place] [address] E (%) (Auto) 2018 Eloy TE[place] 51586 5:30am Eosinophils November 0.9 % 0.1-12.0 [place] [address] E (%) (Auto) 2018 Benito TEJ[place] 06743 8:30am Basophils (%) March 0.7 % 0.1-2.0 [facility], [address] [place] [address] E (Auto) 2018 Eloy TEJ[place] 35209 6:58pm Basophils (%) April 0.3 % 0.1-2.0 [facility], [address] [place] [address] E (Auto) 2018 Eloy TE[place] 37136 5:30am Basophils (%) April 0.3 % 0.1-2.0 [facility], [address] [place] [address] E (Auto) 2018 El[place] TE[place] 88646 8:30am Neutrophils # March 6.2 K/mm3 1.8-7.8 [facility], [address] [place] [address] E (Auto) 2018 Eloy TEJADA 44316 6:58pm Neutrophils # April 9.0 K/mm3 1.8-7.8 [facility], [address] [place] [address] E (Auto) 2018 Eloy TEJ[place] 79638 5:30am Neutrophils # April 13.1 K/mm3 1.8-7.8 [facility], [address] [place] [address] E (Auto) 2018 Eloy TEJ[place] 73116 8:30am Lymphocytes # March 1.2 K/mm3 0.7-4.5 [facility], [address] [place] [address] E (Auto) 2018 Eloy TEJADA 63433 6:58pm Lymphocytes # April 1.1 K/mm3 0.7-4.5 [facility], [address] [place] [address] E (Auto) 2018 Eloy TEJ[place] 47927 5:30am Lymphocytes # April 0.7 K/mm3 0.7-4.5 [facility], [address] [place] [address] E (Auto) 2018 Eloy TEJ[place] 56327 8:30am Monocytes # March 0.7 K/mm3 0.1-1.0 [facility], [address] [place] [address] E (Auto) 2018 Eloy TEJADA 91884 6:58pm Monocytes # April 1.0 K/mm3 0.1-1.0 [facility], [address] [place] [address] E (Auto) 2018 Eloy TEJADA 70446 5:30am Monocytes # April 0.9 K/mm3 0.1-1.0 [facility], [address] [place] [address] E (Auto) 2018 Eloy TEJADA 16337 8:30am Eosinophils # March 0.4 K/mm3 0.0-0.4 [facility], [address] [place] [address] E (Auto) 2018 Eloy TEJ[place] 32872 6:58pm Eosinophils # November 0.1 K/mm3 0.0-0.4 [facility], [address] [place] [address] 36 E (Auto) 2018 Eloy [place] 80165 5:30am Eosinophils # November 0.1 K/mm3 0.0-0.4 [facility], [address] [place] [address] E (Auto) 2018 [place] [address]47 8:30am Basophils # October 0.1 K/mm3 0-0.2 [facility], [address] [place] [address] 36 E (Auto) 2018 [place] 13454 6:58pm Basophils # November 0.0 K/mm3 0-0.2 [facility], [address] [place] [address] 36 E (Auto) 2018 Eloy [place] 09627 5:30am Basophils # November 0.1 K/mm3 0-0.2 [facility], [address] [place] [address] E (Auto) 2018 [place] 24683 8:30am Differential March [facility], [address] [place] [address] E Total Cells 2018 [place] [address] Counted 4:58am Differential April [facility], [address] [place] [address] E Total Cells 2018 Sherine guevara [place] [address] Counted 8:30am Neutrophils % March 93 % 42-76 [facility], [address] [place] [address] E (Manual) 2018 [place] 65752 4:58am Neutrophils % April 84 % 42-76 [facility], [address] [place] [address] E (Manual) 2018 [place] 27033 8:30am Band October 6.0 0-8 [facility], [address] [place] [address] E Neutrophils % 2018 Andrei steviepaola TEJADA 41514 10:33am Lymphocytes % March 7 % 10-50 [facility], [address] [place] [address] 36 E (Manual) 2018 [place] TE[place] 49461 4:58am Lymphocytes % April 8 % 10-50 [facility], [address] [place] [address] E (Manual) 2018 [place] 34297 8:30am Monocytes % March 1 % 2-9 [facility], [address] [place] [address] E (Manual) 2018 El[place] TEJ[place] 34017 10:33am Monocytes % November 7 % 2-9 [facility], [address] [place] [address] 36 E (Manual) 2018 Eloy TEJADA 67254 8:30am Eosinophils % November 1 % 0-3 [facility], [address] [place] [address] 36 E (Manual) 2018 Eloy TE[place] 92589 8:30am Platelet October Normal [facility], [address] [place] [address] 36 E Estimate 2018 El[place] TE[place] 21898 4:58am Platelet November Normal [facility], [address] [place] [address] 36 E Estimate 2018 El[place] TEJ[place] 70978 8:30am Red Blood Cell March [facility], [address] [place] [address] 36 E Morphology 2018 Reportable Sherine paola TEJ[place] 53783 4:58am Hypochromasia March 27+ [facility], [address] [place] [address] 36 E 2018 Eloy TEJ[place] 28600 10:33am Poikilocytosis March 27+ [facility], [address] [place] [address] 36 E 2018 Eloy TEJADA 46331 10:33am Poikilocytosis April 27+ [facility], [address] [place] [address] 36 E 2018 Eloy TEJ[place] 51628 8:30am Anisocytosis March 27+ [facility], [address] [place] [address] 36 E 2018 Eloy TEJADA 54828 4:58am Anisocytosis April 27+ [facility], [address] [place] [address] 36 E 2018 Eloy TEJADA 36052 8:30am Ovalocytes March 27+ [facility], [address] [place] [address] 36 E 2018 Eloy TEJADA 03694 4:58am Stomatocytes March 27+ [facility], [address] [place] [address] 36 E 2018 Eloy TEJADA 80690 4:58am Stomatocytes April 27+ [facility], [address] [place] [address] 36 E 2018 Eloy TEJADA 65354 8:30am Acanthocytes March 27+ [facility], [address] [place] [address] 36 E 2018 Eloy TEJADA 56429 10:33am Acanthocytes April 27+ [facility], [address] [place] [address] 36 E 2018 Eloy TEJADA 58060 8:30am Erythrocyte October 22 mm/hr 0-20 [facility], [address] [place] [address] 36 E Sedimentation 2018 Andrei hubbard [place] 43789 Rate 6:58pm Urine Color October Yellow Yellow [facility], [address] [place] [address] 36 E 2018 [place] [address] 7:20pm Urine Color November Dk yellow Yellow [facility], [address] [place] [address] 36 E 2018 [place] [address] 8:20am Urine Color November Yellow Yellow [facility], [address] [place] [address] 36 E 2018 [place] 89736 6:30pm Urine October Clear Clear [facility], [address] [place] [address] 36 E Appearance 2018 Elsatracie bridget TE[place] 84857 7:20pm Urine November Sl cloudy Clear [facility], [address] [place] [address] 36 E Appearance 2018 [place] 64791 8:20am Urine November Clear Clear [facility], [address] [place] [address] 36 E Appearance 2018 Benito TEJADA 15701 6:30pm Urine pH October 5.5 5.0-8.5 [facility], [address] [place] [address] 36 E 2018 [place] [address] 7:20pm Urine pH November 5.0 5.0-8.5 [facility], [address] [place] [address] 36 E 2018 Eloy TEJADA 87078 8:20am Urine pH November 5.5 5.0-8.5 [facility], [address] [place] [address] 36 E 2018 Eloy TEJ[place] 97681 6:30pm Urine Specific March 1.015 1.005-1.03 [facility], [address] [place] [address] 36 E [place] 2018 0 Eloy TEJADA 72287 7:20pm Urine Specific April 1.025 1.005-1.03 [facility], [address] [place] [address] 36 E [place] 2018 0 Eloy TEJADA 19573 8:20am Urine Specific November 1.020 1.005-1.03 [facility], [address] [place] [address] 36 E [place] 2018 0 [place] TEJ[place] 28967 6:30pm Urine Protein October Negative Negative [facility], [address] [place] [address] 36 E 2018 [place] 11121 7:20pm Urine Protein November 1+ Negative [facility], [address] [place] [address] 36 E 2018 [place] TE[place] 85310 8:20am Urine Protein November 1+ Negative [facility], [address] [place] [address] 36 E 2018 [place] TE[place] 19294 6:30pm Urine Glucose October Negative Negative [facility], [address] [place] [address] 36 E (UA) 2018 [place] TE[place] 79919 7:20pm Urine Glucose November Negative Negative [facility], [address] [place] [address] 36 E (UA) 2018 El[place] TEJADA 30380 8:20am Urine Glucose November Negative Negative [facility], [address] [place] [address] 36 E (UA) 2018 Eloy TEJADA 30333 6:30pm Urine Ketones October Negative Negative [facility], [address] [place] [address] 36 E 2018 El[place] TEJ[place] 42677 7:20pm Urine Ketones November Trace Negative [facility], [address] [place] [address] 36 E 2018 Eloy TEJADA 72174 8:20am Urine Ketones November Negative Negative [facility], [address] [place] [address] 36 E 2018 Eloy TEJADA 52175 6:30pm Urine Blood October Trace-i Negative [facility], [address] [place] [address] 36 E 2018 Eloy TEJADA 92083 7:20pm Urine Blood November 3+ Negative [facility], [address] [place] [address] 36 E 2018 Eloy TEJADA 22493 8:20am Urine Blood November 3+ Negative [facility], [address] [place] [address] 36 E 2018 Eloy TEJADA 22199 6:30pm Urine Nitrate October Negative Negative Garcia [facility], [address] [place] [address] 36 E 2018 Eloy TEJADA 12297 7:20pm Urine Nitrate November Negative Negative [facility], [address] [place] [address] 36 E 2018 Eloy TEJADA 93938 8:20am Urine Nitrate November Negative Negative Garcia [facility], [address] [place] [address] 36 E 2018 Eloy TEJADA 59971 6:30pm Urine October Negative Negative [facility], [address] [place] [address] 36 E Bilirubin 2018 Eloy TEJADA 00276 7:20pm Urine November Negative Negative CONFIRM [facility], [address] [place] [address] 36 E Bilirubin 2018 [place] [address] 8:20am RESULT WITH ICTOTEST: NEG Urine November Negative Negative [facility], [address] [place] [address] 36 E Bilirubin 2018 Eloy TEJADA 29776 6:30pm Urine October 0.2 EU/dl [facility], [address] [place] [address] 36 E Urobilinogen 2018 Neetu TEJADA 47572 7:20pm Urine November 0.2 EU/dl [facility], [address] [place] [address] 36 E Urobilinogen 2018 Sherine TEJADA 30755 8:20am Urine November 0.2 EU/dl [facility], [address] [place] [address] 36 E Urobilinogen 2018 Neetu TEJADA 73265 6:30pm Urine October 1+ Negative [facility], [address] [place] [address] E Leukocyte 2018 Eloy TEJADA 74172 Esterase 7:20pm Urine November Trace Negative [facility], [address] [place] [address] 36 E Leukocyte 2018 Eloy TEJADA 18172 Esterase 8:20am Urine November 2+ Negative [facility], [address] [place] [address] E Leukocyte 2018 Eloy TEJADA 53208 Esterase 6:30pm Urine RBC April 20-50 #/hpf [facility], [address] [place] [address] 36 E 2018 Eloy TEJADA 57012 8:20am Urine RBC April 5-10 # /hpf [facility], [address] [place] [address] 36 E 2018 Eloy TEJADA 69347 6:30pm Urine WBC March 20-50 #/hpf [facility], [address] [place] [address] 36 E 2018 Eloy TEJADA 01458 7:20pm Urine WBC November Occasional [facility], [address] [place] [address] 36 E 2018 #/hpf Eloy TEJADA 75655 8:20am Urine WBC April 10-20 #/hpf [facility], [address] [place] [address] 36 E 2018 Eloy TEJADA 55483 6:30pm Urine Squamous November Occasional [facility], [address] [place] [address] 36 E Epithelial 2018 #/hpf Eloy TEJADA 65062 Cells 8:20am Urine Squamous November Occasional [facility], [address] [place] [address] E Epithelial 2018 #/hpf Elsatracie TEJADA 22251 Cells 6:30pm Urine Bacteria October Trace /lpf NONE [facility], [address] [place] [address] 36 E 2018 [place] [address] 7:20pm Urine Bacteria November Trace /lpf NONE [facility], [address] [place] [address] 36 E 2018 [place] [address] 8:20am Urine Bacteria November Trace /lpf None [facility], [address] [place] [address] 36 E 2018 [place] [address] 6:30pm Urine Mucus October Trace /lpf None [facility], [address] [place] [address] 36 E 2018 Eloy TEJADA 28309 7:20pm Sodium Level October 137 mmol/L 136-145 [facility], [address] [place] [address] 36 E 2018 [place] [address] 6:58pm Sodium Level November 135 mmol/L 136-145 [facility], [address] [place] [address] 36 E 2018 [place] [address] 5:30am Sodium Level November 134 mmol/L 136-145 [facility], [address] [place] [address] 36 E 2018 [place] [address] 8:30am Potassium October 4.4 mmoL/L 3.5-5.1 [facility], [address] [place] [address] 36 E Level 2018 [place] [address] 6:58pm Potassium November 4.0 mmoL/L 3.5-5.1 [facility], [address] [place] [address] E Level 2018 [place] [address] 5:30am Potassium November 4.0 mmoL/L 3.5-5.1 [facility], [address] [place] [address] E Level 2018 [place] [address] 8:30am Chloride Level March 102 mmol/L 98-107 [facility], [address] [place] [address] 36 E 2018 [place] [address] 6:58pm Chloride Level November 99 mmol/L 98-107 [facility], [address] [place] [address] 36 E 2018 [place] [address] 5:30am Chloride Level November 97 mmol/L 98-107 [facility], [address] [place] [address] 36 E 2018 [place] [address] 8:30am Carbon Dioxide March 26 mmol/L 21.0-32.0 [facility], [address] [place] [address] 36 E Level 2018 [place] [address] 6:58pm Carbon Dioxide April 28 mmol/L 21.0-32.0 [facility], [address] [place] [address] 36 E Level 2018 [place] [address] 5:30am Carbon Dioxide April 29 mmol/L 21.0-32.0 [facility], [address] [place] [address] 36 E Level 2018 [place] 09914 8:30am Anion Gap March 13.4 mEq/L 11-08 [facility], [address] [place] [address] 36 E 2018 [place] 57520 6:58pm Anion Gap April 12.0 mEq/L 11-08 [facility], [address] [place] [address] 36 E 2018 [place] 36439 5:30am Anion Gap April 12.0 mEq/L 11-08 [facility], [address] [place] [address] 36 E 2018 [place] [address] 8:30am Blood Urea March 18 mg/dL 01-11 [facility] [facility], [address] [place] [address] E Nitrogen 2018 [place] MALLORY 72700 6:58pm Blood Urea April 35 mg/dL 01-11 [facility], [address] [place] [address] 36 E Nitrogen 2018 [place] M[place] 87268 5:30am Blood Urea April 46 mg/dL 01-11 [facility], [address] [place] [address] 36 E Nitrogen 2018 [place] M[place] 07621 8:30am Creatinine March 1.54 mg/dL 0.70-1.30 [facility], [address] [place] [address] 36 E 2018 [place] M[place] 07455 6:58pm Creatinine April 1.83 mg/dL 0.70-1.30 [facility], [address] [place] [address] 36 E 2018 [place] M[place] 69903 5:30am Creatinine April 1.72 mg/dL 0.70-1.30 [facility], [address] [place] [address] 36 E 2018 [place] TEJADA 65827 8:30am Estimated March 47 mL/min 0-300 [facility], [address] [place] [address] 36 E Creatinine 2018 Cynorlinan bridget TEJADA 79490 Clearance 6:58pm Estimated April 44 mL/min 0-300 [facility], [address] [place] [address] 36 E Creatinine 2018 [place] [address] Clearance 5:30am Estimated April 42 mL/min 0-300 [facility], [address] [place] [address] 36 E Creatinine 2018 Cynorlinan bridget TEJADA 61034 Clearance 8:30am Estimated GFR March 54 ML/MIN >59 [facility], [address] [place] [address] 36 E ( 2018 [place] M[place] [address] Vincentian) 6:58pm Estimated GFR April 44 ML/MIN >59 [facility], [address] [place] [address] 36 E ( 2018 [place] [address] Vincentian) 5:30am Estimated GFR April 47 ML/MIN >59 [facility], [address] [place] [address] 36 E ( 2018 [place] [address] Vincentian) 8:30am Estimat March 44 ml/min >59 [facility], [address] [place] [address] 36 E Glomerular 2018 Neetuan bridget TEJADA 29333 Filtration 6:58pm Rate Estimat April 36 ml/min >59 [facility], [address] [place] [address] 36 E Glomerular 2018 [place] TEJADA 51188 Filtration 5:30am Rate Estimat April 39 ml/min >59 [facility], [address] [place] [address] 36 E Glomerular 2018 Cynorlinan bridget TEJADA 34697 Filtration 8:30am Rate Glucose Level March 159 mg/dL 74-106 [facility], [address] [place] [address] 36 E 2018 [place] TEJADA 84651 6:58pm Glucose Level April 152 mg/dL 74-106 [facility], [address] [place] [address] 36 E 2018 [place] TEJADA 11133 5:30am Glucose Level April 112 mg/dL 74-106 Delta: 201 on [facility], [address] [place] [address] 36 E [id number] Andrei TEJADA 33704 8:30am Lactate October 1.4 0.4-2.0 [facility], [address] [place] [address] 36 E 2018 [place] TEJADA 67332 5:38pm Lactate March 1.0 mmol/L 0.4-2.0 [facility], [address] [place] [address] 36 E 2018 [place] TEJADA 44082 9:15pm Lactate April 1.6 mmol/L 0.4-2.0 [facility], [address] [place] [address] 36 E 2018 [place] TEJADA 72316 5:35pm Calcium Level March 8.7 mg/dL 8.5-10.1 [facility], [address] [place] [address] 36 E 2018 [place] TEJADA 74891 6:58pm Calcium Level April 8.9 mg/dL 8.5-10.1 [facility], [address] [place] [address] E 2018 [place] TEJADA 97937 5:30am Calcium Level April 8.0 mg/dL 8.5-10.1 [facility], [address] [place] [address] E 2018 [place] TEJADA 83538 8:30am Total October 0.5 mg/dL 0.2-1.0 [facility], [address] [place] [address] 36 E Bilirubin 2018 [place] [address] 6:58pm Total March 1.0 mg/dL 0.2-1.0 [facility], [address] [place] [address] 36 E Bilirubin 2018 [place] [address] 10:33am Total April 0.9 mg/dL 0.2-1.0 [facility], [address] [place] [address] E Bilirubin 2018 [place] [address] 5:35pm Aspartate March 13 U/L [facility], [address] [place] [address] 36 E Amino Transf 2018 Neetu TEJADA 52466 (AST/SGOT) 6:58pm Aspartate March 29 U/L [facility], [address] [place] [address] 36 E Amino Transf 2018 Neetu TEJADA 77189 (AST/SGOT) 10:33am Aspartate April 16 U/L [facility], [address] [place] [address] 36 E Amino Transf 2018 Neetu TEJADA 12340 (AST/SGOT) 5:35pm Alanine March 21 U/L [facility], [address] [place] [address] 36 E Aminotransfera 2018 Donald TEJADA 45941 se (ALT/SGPT) 6:58pm Alanine March 104 U/L [facility], [address] [place] [address] 36 E Aminotransfera 2018 Donald TEJADA 18759 se (ALT/SGPT) 10:33am Alanine April 40 U/L [facility], [address] [place] [address] E Aminotransfera 2018 Donald TEJADA 27825 se (ALT/SGPT) 5:35pm Ammonia April 23 umol/L 19-54 [facility], [address] [place] [address] 36 E 2018 [place] TEJADA 27402 6:00pm C-Reactive October 0.3 mg/dL 0.0-0.9 [facility], [address] [place] [address] E Protein 2018 [place] TEJADA 64091 6:58pm B-Type March 2940 pg/mL 0-100 [facility], [address] [place] [address] E Natriuretic 2018 Sherine TEJADA 68613 Peptide 10:33am Total Protein March 7.2 gm/dL 6.4-8.2 [facility], [address] [place] [address] 36 E 2018 [place] TEJADA 17879 6:58pm Total Protein March 6.6 gm/dL 6.4-8.2 [facility], [address] [place] [address] 36 2018 [place] TEJADA 17182 10:33am Total Protein April 6.1 gm/dL 6.4-8.2 [facility], [address] [place] [address] 36 E 2018 [place] TEJADA 24478 5:35pm Albumin March 3.4 gm/dL 3.4-5.0 [facility], [address] [place] [address] 36 E 2018 [place] TEJADA 83977 6:58pm Albumin March 2.8 gm/dL 3.4-5.0 [facility], [address] [place] [address] 36 E 2018 [place] TEJADA 02100 10:33am Albumin November 2.5 gm/dL 3.4-5.0 [facility], [address] [place] [address] 36 E 2018 [place] [address] 5:35pm Globulin October 3.8 gm/dl 1.3-3.2 [facility], [address] [place] [address] 36 E 2018 [place] [address] 6:58pm Globulin October 3.8 gm/dl 1.3-3.2 [facility], [address] [place] [address] 36 E 2018 [place] [address] 10:33am Globulin April 3.6 gm/dl 1.3-3.2 [facility], [address] [place] [address] 36 E 2018 [place] 53938 5:35pm Albumin/Globul October 0.9 1.1-1.8 [facility], [address] [place] [address] 36 E in Ratio 2018 [place] M[place] 05418 6:58pm Albumin/Globul October 0.7 1.1-1.8 [facility], [address] [place] [address] 36 E in Ratio 2018 [place] M[place] 31889 10:33am Albumin/Globul November 0.7 1.1-1.8 [facility], [address] [place] [address] 36 E in Ratio 2018 [place] M[place] 04390 5:35pm Alkaline October 109 U/L 46-116 [facility], [address] [place] [address] 36 E Phosphatase 2018 Sehrine paola TEJADA 81280 6:58pm Alkaline October 104 U/L 46-116 [facility], [address] [place] [address] 36 E Phosphatase 2018 Sherinetung TEJADA 54578 10:33am Alkaline November 86 U/L 46-116 [facility], [address] [place] [address] 36 E Phosphatase 2018 Sherine TEJADA 44857 5:35pm Amylase Level March 38 U/L 25-115 [facility], [address] [place] [address] 36 E 2018 [place] 24182 6:58pm Lipase October 103 u/L 73-393 [facility], [address] [place] [address] 36 E 2018 [place] 70590 6:58pm Influenza Type November Negative Negative [facility], [address] [place] [address] E A Antigen 2018 [place] Pickard 6:31pm Influenza Type November Negative Negative [facility], [address] [place] [address] E B Antigen 2018 [place] TEJADA 18864 6:31pm Vancomycin April 22.9 mcg/ml 10.0-20.0 Results [facility], [address] [place] [address] E Level Trough 2018 called to Sherine TEJADA 45487 12:18pm Pharmacist: EDUIN at 04/28/19,1252 by Carly Garnica. Random April 15.1 ug/mL [facility], [address] [place] [address] E Vancomycin 2018 [place] MALLORY Vickers31 Level 6:00am Arterial Blood March 7.43 mmol/L 7.35-7.45 [facility], [address] [place] [address] E pH 2018 [place] M[place] 61522 10:48am Arterial Blood March 34.6 mmhg 35.0-45.0 [facility], [address] [place] [address] E Partial 2018 [place] Vickers31 Pressure CO2 10:48am Arterial Blood March 55.0 mmhg 80-100 [facility], [address] [place] [address] E Partial 2018 [place] M[place] 09499 Pressure O2 10:48am Arterial Blood March 22.4 mmhg 22.0-26.0 [facility], [address] [place] [address] E HCO3 2018 [place] 87094 10:48am Arterial Blood March 23.5 mmhg 23-27 [facility], [address] [place] [address] E Total CO2 2018 [place] TEJADA 53449 10:48am Arterial Blood March -1.9 mmol/L -2.4-2.3 [facility], [address] [place] [address] E Base Excess 2018 Sherine TEJADA 24009 10:48am Arterial Blood March 87 % 90-100 [facility], [address] [place] [address] E Oxygen 2018 [place] TEJADA 13682 Saturation 10:48am Blood Gas March 6l % [facility], [address] [place] [address] E Oxygen Percent 2018 Donald TEJADA 38665 10:48am Ubaldo Test March Acceptable [facility], [address] [place] [address] E 2018 [place] M[place] 37847 10:48am Blood Gas March Left [facility], [address] [place] [address] E Specimen 2018 brachial [place] TEJADA 27605 Source 10:48am Urine Sodium March 63 mmol/L Not Estab. Performed at: [facility] 2018 CB - [facility] Acct# 4:22pm [id number] [place], [place] [id number] Director: José Manuel Potter PhD, Phone: [phone] Microbiology Results Procedure Source Result Collection Result Result Performin g Date/Time Date/Time Comment Site Blood Blood NO GROWTH AFTER March [facility], [address] [place] [address] E Culture 5 DAYS 2018 Benito TEJADA 64433 9:15pm 9:26pm Blood Blood NO GROWTH AFTER March [facility], [address] [place] [address] E Culture 5 DAYS 2018 [place] M[place] 61433 11:25am 11:07am Blood Blood Staphylococcus March [facility], [address] [place] [address] E Culture epidermidis 2018 Sherine TEJADA 70360 11:25am 10:22am Urine Urine,Catheter NO GROWTH AFTER March [facility], [address] [place] [address] E Culture ized 48 HOURS 2018 Benito TEJADA 15017 7:20pm 7:26pm Gram Stain Sputum, April [facility], [address] [place] [address] E Expectorated 2018 Andrei TEJADA 10083 Sputum 9:45pm 10:33am Sputum Sputum, April [facility], [address] [place] [address] E Culture Expectorated 2018 Andrei hubbard MALLORY 22998 Sputum 9:45pm 10:33am Diagnostic Imaging Reports Report Dictated Date/Time Dictated By Status Radiology Report April 06, 2019 Blake Chiu completed 7:54pm [place] [address] [place] [address] [address] Scan Report [place] Patient: Jose Patel MR#: [id number] : 1945 Acct:[id number] Age/Sex: 73 / M ADM Date: 9 Loc: ER Attending Dr: Ordering Physician: Zaid Yoon MD Date of Service: 04/06/19 Procedure(s): CT abdomen pelvis w con Accession Number(s): [id number] cc: Blake Chiu ; Rayshawn Tinsley MD~ Procedure: CT ABDOMEN PELVIS W CON Patient Age:73Y CLINICAL INDICATION: RLQ PAIN Lower abdominal pain but COMPARISON: ABDPELW/O CT ABD PELVIS W/O CONTRAST from 02/17/[address] abdomen pelvis wo con from 08/06/2017 TECHNIQUE: 75 cc Optiray [address] utilized.. No IV contrast utilized Axial images obtained with sagittal and coronal reformats. All CT scans at the facility use one or more d ose reduction, viz: automated exposure control, ma/kV adjustment per patient size (including targeted exams where dose is matched to indication, i.e. head), or iterative reconstruction technique. Si nce 2014 CT chest FINDINGS: LOWER THORAX: No acute finding Minor atelectasis lung bases most evide nt right lung base. Minor pleural scarring lateral left lung base . . Benign-appearing fissure nodule left base a 6 mm in size. Unchanged in appearance since 2014 CT a bdomen Borderline/mild cardiomegaly. Moderate pericardial effusion posteriorly measured 15 mm but only min imal thin pericardial effusion anteriorly to the heart ABDOMEN/pelvis: Liver: No significant findings. No mas s masses or biliary dilatation.. Small calcified granuloma . Gallbladder: Nondistended. No radio opa que stones. Pancreas: No masses or peripancreatic f luid collections. Spleen: unremarkable Adrenals: unremarkable tract: No urinary tract obstruction. The bila teral renal arteries calcifications have been seen previous and account for overall appearance with no definitive renal samir culi otherwise Benign benign renal cyst bilaterally: Right kidney: 4.3 cm cyst at mid right kidney:. Two cyst off the lower pole right kidney 2.6 cm cyst pos terior and just less than 2 cm cyst more anteriorly Left kidney: 2.5 cm x 3 cm cyst anterio r right kidney with smaller less than1 cm cyst just below this as w ell as towards periphery of upper pole Ureters unremarkable. Bladder. No significant findings but n o calculi upper normal wall thickness anteriorly . Pelvis with cnor-pe-bknayvty free fluid is seen lower pelvis just above the urinary bladder and outlining bowel loops here. Minimal Wispy fluid tracks upward along the ret roperitoneal reflection just anterior to the ureters bilaterally. GI TRACT Stomach:. Moderate food and fluid with minimal distention of stomach. Relative wall thickening anterior gastr ic wall-appears similar to previous CT 2018. However on today's s tudy but also note air between the prominent mucosal folds some areas of air extending just to the outer wall of the stomach but no defini tive mass or ulceration but no free air. If upper abdominal pain cons ider further evaluation to exclude gastritis or developing ulcer d isease but Small Bowel: increased fluid throughou t. Borderline dilated small bowel loops measure up to 2.8 cm diamet er inferiorly. There wall thickening and slight indistinctness of wall involving several loops of distal jejunum at the pelvis most ev ident just superior the bladder and just below the umbilicus, n ear midline. There is enhancement of thesethickened jejunal b owel loops at pelvis which speaks against significant ischemia-. More likely likely inflammation/enteritis at this point Large bowel.: Increased of semi-solid l iquid stool at the cecum but than there appears to be more solid-mil earing stool distal to this and throughout transverse colon generou s stool the transverse colon. However only scant minimal stool at gricelda cending colon and rectosigmoid. . Appendix well visualized with no mil endicitis. There is diffuse contrast throughout the appendix. Term inal ileum unremarkable Vascular: Diffuse atherosclerotic calci fication infrarenal abdominal aorta and common iliac arteries bilater ally. Also generous calcification the of yielding mild sten osis at the proximal SMA and celiac artery but both seems to enhance satisfactory, clearly remain patent.. The small RO is also visuali zed and patent. Peritoneum: No abnormal fluid collectio ns. No obvious inflammatory changes. No free air. Lymph nodes: No enlarged lymph nodes ap parent. Vasculature: No evidence of abdominal a ortic aneurysm. No retroperitoneal hemorrhage evident. Bones: No acute fracture. Prominent de generative changes throughout lumbar spine. Facet hypertrophy and di sc space narrowing of multilevel spinal stenosis. Disc space narrowing multiple levels With fusion, incomplete segmentation a t L2/3. IMPRESSION: 1. ENTERITIS, most pronounced involvi ng distal loops of jejunum: - wall thickening and indistinctness at several loops of jejunum at pelvis -Small to moderate free fluid pelvis ju st above bladder surrounds these thickened inflamed appearing dist al jejunal bowel loops and suspect secondary to the inflammation h ere. --Increased fluid throughout borderline dilated small bowel. Also liquid stool developing at cecum and in to right colon.. 2.. Diffuse atherosclerotic calcificat ion inferior aorta, iliacs; &also involving proximal SMA and celiac arteries. Estimated up to 25-30 percent stenosis at SMA origin. However these vessels all appear to remain remain widely patent w ith good enhancement throughout; and also note good enhancem ent of the thickened jejunal loops 3. Relative thickening at anterior wal l of stomach as seen on previous CT here, studies. However on today's study there is increased air been between deep mucosal folds nearly extending towards outer wall the stomach. Could indeed reflect gastritis; difficult to exclude developing ulcerat ion, but I believe less likely. (Doubt emphysematous gastritis as question somewhat by v RC preliminary report unless severe upper abdominal symptoms develope) 4. Mild cardiomegaly with moderate pos terior pericardial effusion up to 1.5 cm (which has developed since pr ior study) 5.Other chronic observations: Bilateral renal cyst with renal vascula r calcifications.. Stable degenerative changes spine with multilevel spinal stenosis Dictated by: Petr Chiu MD 019 12:40 Electronically signed by Marly Chiu MD in [place] 04/07/2019 12:40 Radiology Report April 25, 2019 Ubaldo Saunders MD completed 10:56am [facility] [address] [place] [address] XRay R eport [place] Patient: Jose Patel MR#: [id number] : 1945 Acct:[id number] Age/Sex: 73 / M ADM Date: 9 Loc: 2ND 217SD-[address]: Rayshawn Tinsley MD Ordering Physician: Eric Harrington MD Date of Service: 04/25/19 Procedure(s): XR chest portable Accession Number(s): [id number] cc: Ubaldo Saunders MD; Rayshawn Tinsley MD~ PROCEDURE: XR CHEST PORTABLE CLINICAL HISTORY: cough, SOA Shortness of air and cough COMPARISON: CXR2V XR chest 2V from 03/2018 CXR2V XR chest 2V from 12/08/2017 Chest from 01/13/2019 FINDINGS: Cardiomegaly without failure. Diffuse opacification noted involving t he left mid and lower lung zone and right lower lobe consistent wi th bilateral pneumonia No acute bony abnormalities. IMPRESSION: Bilateral pneumonia Dictated by: Ubaldo Saunders MD 04/25/2019 12:01 Electronically signed by Ubaldo Saunders in [place] 04/25/2019 12:01 Radiology Report April 27, 2019 Ubaldo Saunders MD completed 10:49am [facility] [address] [place] [address] XRay R eport [place] Patient: Jose Patel MR#: [id number] : 1945 Acct:[id number] Age/Sex: 73 / M ADM Date: 9 Loc: 217SD-[address]: Rayshawn Tinsley MD Ordering Physician: Rayshawn Tinsley MD Date of Service: 04/27/19 Procedure(s): XR chest 2V Accession Number(s): [id number] cc: Ubaldo Saunders MD; Rayshawn Tinsley MD~ PROCEDURE: XR CHEST 2V CLINICAL HISTORY: pneumonia progress COMPARISON: CXR2V XR chest 2V from Chest from 01/13/2019 XR CHEST PORTABLE from 04/25/2019 FINDINGS: Left upper extremity PICC line has been inserted. The tip Is in the region of the distal SVC. Le ft lower lobe pneumonia with effusion noted not significantly change d. The right lower lobe pneumonia has shown some improvement wi th some residual density in the right lower lobe. No acute bony abnormalities. IMPRESSION: 1. PICC line in good position. 2. No change left lower lobe pneumonia with effusion with improvement in right lower lobe pneumonia Dictated by: Ubaldo Saunders MD 04/27/2019 10:56 Electronically signed by Ubaldo Saunders in [place] 04/27/2019 10:56 Radiology Report April 28, 2019 Ubaldo Saunders MD completed 12:58pm [facility] [address] [place] [address] [address] Scan Report [place] Patient: Jose Patel MR#: [id number] : 1945 Acct:[id number] Age/Sex: 73 / M ADM Date: 9 Loc: 2ND 217SD-[address]: Rayshawn Tinsley MD Ordering Physician: Rayshawn Toth MD Date of Service: 04/28/19 Procedure(s): CT abdomen pelvis wo con Accession Number(s): [id number] cc: Ubaldo Saunders MD; Rayshawn Tinsley MD~ PROCEDURE: CT ABDOMEN PELVIS WO CON CLINICAL INDICATION: lower abd pain, b leeding from yuan COMPARISON: CT ABDOMEN PELVIS W CON fr om 04/06/2019 TECHNIQUE: Axial images obtained with sagittal and coronal reformats. All CT scans at the facility use one or more dose reduction, viz: automated exposure cont rol, ma/kV adjustment per patient size (including targeted exams where dose is matched to indication, i.e. head), or iterative re construction technique. FINDINGS: LOWER THORAX: There has been interval d evelopment of a medium-sized right pleural effusion and a small left pleural effusion with bilateral lower lobe consolidation left more extensive than right. There is a pericardial effusion which m easures 18 mm in thickness. There is mild cardiomegaly. Coronary a rtery calcifications are present. ABDOMEN & PELVIS: The liver, spleen, ad renal glands, and pancreas are unremarkable. The gallbladder is mildly distended. There is a 4.6 cm right renal cyst and a 2.2 cm right lavonne al cyst. There is mild stranding of the perinephric fat and th ere is mild thickening of the left pericolic gutter. There is mild tr uncal edema. Urinary bladder is thickened. A Yuan catheter is prese nt with some minimal hyperdensity along the posterior aspect of the Yuan catheter which could be due to small bladder stones. T here is a small amount of gas in the urinary bladder. No evidence of appendicitis or diverticulitis. Small amount fluid is i n the cul-de-sac and there is mild thickening of the presacral fat. D egenerative changes are present in the lumbar spine. IMPRESSION: 1. Bilateral pleural effusions with satya ateral lower lobe airspace disease which has developed since the p revious exam consistent with bilateral pneumonia left more extensive than right 2. Pericardial fusion with cardiomegaly . 3. Diffuse truncal edema. 4. Thickening of the urinary bladder no nspecific but may be inflammatory or infectious in nature. S uspect small bladder stones posterior to the Yuan catheter. Dictated by: Ubaldo Saunders MD 04/28/2019 15:07 Electronically signed by Ubaldo Saunders in [place] 04/28/2019 15:07 Radiology Report April 28, 2019 Ubaldo Saunders MD completed 12:42pm [facility] [address] [place] [facility] [address] [place] [address] XRay R [place]port [place] Patient: Jose Patel MR#: [id number] : 1945 Acct:[id number] Age/Sex: 73 / M ADM Date: 9 Loc: SD-[address]: Rayshawn Tinsley MD Ordering Physician: Rayshawn Tinsley MD Date of Service: 04/28/19 Procedure(s): XR chest portable Accession Number(s): [id number] cc: Ubaldo Saunders MD; Rayshawn Tinsley MD~ PROCEDURE: XR CHEST PORTABLE CLINICAL HISTORY: PICC line placement COMPARISON: Chest from 01/13/2019 XR CHEST PORTABLE from 04/25/2019 XR CHEST 2V from 04/27/2019 FINDINGS: Left upper extremity PICC line tip is p resent with the tip in the region of the distal superior vena cava . There is dense consolidation in both lower lobes left more extensive than right with bilateral pleural effusions. The conso lidation is slightly worse. Upper lobes are clear. There is cardio megaly with mild pulmonary venous congestion. IMPRESSION: Bilateral lower lobe pneumonia with eff usions. Pneumonia appears worse. Left upper extremity PICC line tip in t he region of the superior vena cava Dictated by: Ubaldo Saunders MD 04/28/2019 15:10 Electronically signed by Ubaldo Saunders in [place] 04/28/2019 15:10 Radiology Report May 09, 2019 Ubaldo Saunders MD completed 5:41pm [facility] [address] [place] [facility] [address] [place] [address] [address] Scan Report [place] Patient: Jose Patel MR#: [id number] : 1945 Acct:[id number] Age/Sex: 73 / M ADM Date: 9 Loc: ER Attending Dr: Ordering Physician: Eric Harrington MD Date of Service: 05/09/19 Procedure(s): CT head/brain wo con Accession Number(s): [id number] cc: Ubaldo Saunders MD; Rayshawn Tinsley MD~ PROCEDURE: CT HEAD/BRAIN WO CON CLINICAL INDICATION: Confusion Altered mental status, altered level co nsciousness, confusion, disorientation COMPARISON: HDWO CT HEAD W/O CONTRAST from 09/28/2016 TECHNIQUE: Axial images obtained. All CT scans at the facility use one or more dose reduction, viz: automa chikis exposure control, ma/kV adjustment per patient size (including targeted exams where dose is matched to indication, i.e. head), or i terative reconstruction technique. FINDINGS: No midline shift, mass effect, intracra nial hemorrhage, hydrocephalus, or extra-axial fluid col lection is evident. There is generalized atrophy with hypoattenuatio n of the periventricular white matter consistent with microangiopathic changes. The calvarium has an unremarkable appearance. No mastoid eff usion. No sinus air-fluid level. IMPRESSION: No acute intracranial finding Dictated by: Ubaldo Saunders MD 05/09/2019 17:53 Electronically signed by Ubaldo Saunders in [place] 05/09/2019 17:53 Radiology Report May 09, 2019 Ubaldo Saunders MD completed 5:47pm [facility] [address] [place] [address] XRay R eport [place] Patient: Jose Patel MR#: [id number] : 1945 Acct:[id number] Age/Sex: 73 / M ADM Date: 9 Loc: [facility] 209-[address]: Rayshawn Tinsley MD Ordering Physician: Eric Hrarington MD Date of Service: 05/09/19 Procedure(s): XR chest portable Accession Number(s): [id number] cc: Ubaldo Saunders MD; Rayshawn Tinsley MD~ PROCEDURE: XR CHEST PORTABLE CLINICAL HISTORY: ams Altered mental status, altered level co nsciousness COMPARISON: XR CHEST PORTABLE from XR CHEST 2V from 04/27/2019 XR CHEST PORTABLE from 04/28/2019 FINDINGS: There is cardiomegaly without failure. Consolidation is present in both lower lobes which has improved compared to the previous exam. Upper l obes are clear. PICC line is present from left subclavian approach w ith tip in the region of the distal SVC. No acute bony abnormalities. IMPRESSION: Cardiomegaly with persistent but improv ement in bilateral lower lobe airspace disease Dictated by: Ubaldo Saunders MD 05/09/2019 23:06 Electronically signed by Ubaldo Saunders in [place] 05/09/2019 23:06 Health Concerns Concerns improve infection, continue medication Advance Directives Advance Directive Response Recorded Date/Time Living Will Yes May 09, 2019 8:46pm Chief Complaint and Reason for Visit Chief Complaint Lower Abd Pain Sepsis, CHF exacerbasion sEPSIS Reason for Visit Sepsis Acute CHF (congestive heart failure) Acute kidney injury Acute on chronic systolic he art failure, NYHA class 3 Gross hematuria Healthcare-associated pneumo tito Iron deficiency anemia BPH (benign prostatic hyperp lasia) COPD (chronic obstructive pu lmonary disease) Chronic kidney disease Chronic mesenteric ischemia Left ventricular thrombus Diabetes mellitus Sepsis Somnolence Encounters Encounter Location(s) Arrival/Admit Date Discharge/Depart Date Provider(s) Departed [facility] Physician April 06, 2019 April 07, 2019 [facility] Emergency Group-Emergency 6:18pm 1:30am Room Discharged [facility] Physician April 25, 2019 May 01, 2019 [facility] , Inpatient Group-Second 12:04pm 10:55am MD Floor Admitted [facility] Physician May 09, Rayshawn mary , Inpatient Group-Second 2018 7:40pm MD Floor Registered [facility] Physician May 10, Zaid Mary Inpatient Group- 2018 2:16pm MD Tony Recent Diagnosis Onset Date Sepsis Acute CHF (congestive heart failure) Acute kidney injury Acute on chronic systolic heart failure, NYHA class 3 Gross hematuria Healthcare-associated pneumonia Iron deficiency anemia BPH (benign prostatic hyperplasia) COPD (chronic obstructive pulmonary disease) Chronic kidney disease Chronic mesenteric ischemia Left ventricular thrombus Diabetes mellitus Sepsis Somnolence Assessments See care plan goals Functional Status Observation Response Date Recorded Oral Care Ability Dependent/Unable May 09, 2019 8:46pm Bathing Ability Total Dependance May 09, 2019 8:46pm Eating (Feeding) Ability Independent May 09, 2019 8:46pm Toileting Ability Maximum Assistance May 09, 2019 8:46pm Ambulation Ability Total Dependance May 09, 2019 8:46pm Oral Care Ability With Assistance April 25, 2019 1 1:32am Bathing Ability Assistance x1 April 30, 2019 8 :00am Eating (Feeding) Ability Assistance X1 April 25, 019 11:32am Toileting Ability Assistance X1 April 25, 2019 1 1:32am Ambulation Ability Assistance x1 May 01, 2019 1 0:53am Goals Acute Goals Nursing Diagnosis: Knowledge Deficit D isease/Condition Goal(s): Education of di sease process Instruction(s): Follow provider p navya/instructions (See attached discharge education) Follow/up with primary care provider as instructed in discharge packet Immunizations Immunization Event Date Not Given Dose [employer] Lot Vac cine Reason Number Number Informatio n Statement (VIS) Deta il Fluzone April High-Dose 65YR+ 2015 Pneumococcal November Polysacc. 2015 Vaccine, 23 valent Tetanus, October 13, Diphtheria, 2015 Pertussis (Tdap) Mental Status Observation Response Date Recorded Comprehension Ability Mild Impairment May 09 9 9:00pm Able to Read Yes May 09, 2019 8:46pm Able to Write Yes May 09, 2019 8:46pm Ability to Follow Directions Fair May 092018 8:46pm Oral Expression Ability Mild Impairment May 09 019 8:46pm Comprehension Ability No Impairment May 01, 2019 9:00am Able to Read Yes April 25, 2019 1 1:32am Able to Write Yes April 25, 2019 1 1:32am Ability to Follow Directions Good March 11:32am Oral Expression Ability No Impairment April 25 11:32am Medical Equipment No Medical Equipment Information available Insurance Providers Guarantor Jose Patel Address [address] [place] [address] Dr Eloy [id number] Contact Info. Home Phone: Payer Policy Id Coverage Id Subscriber's Subscriber Effective Expi ration Name Id Date Date [employer] [id number] Jose Nguyen [id number] April Medicare Jorge 2016 Medicaid [id number] Jose Nguyen [id number] [place] Self Pay Self N/A Plan of Treatment Follow up as ordered by primary care provider Future Tests Future scheduled test information is unavailable Pending Tests Pending diagnostic test information is unavailable Future Visits Future appointment information is unavailable Referrals to Other Providers Reason for Referral Start Provider Provider Contact Provider Address Referral Date Information Admission to [facility] May 102018 [facility] Future Procedures Future procedure information is unavailable Future Medications Future medication information is unavailable Patient Instructions DI for Acute Abdomen Congestive Heart Failure ( erapy) Pneumonia-Adult Heart Failure Sepsis DI for Heart Failure DI for Pneumonia -- Adult Peripherally Inserted Central Catheter Central Line-Associated Bloodstream Infe ctions DI for Sepsis -- Adult DI for Central Line-Associated Bloodstre am Infections Sepsis DI for Sepsis -- Adult DI for Altered Mental Status Social History Assigned Sex Male Vital Signs Vital Reading Result Reference Range Collection Date/ Time Height 172.72 cm April 06 6:36pm Weight 79.37 kg April 06 6:36pm Body Temperature 98.5 [degF] 97.6-99.6 April 07, 2 019 12:31am Heart Rate 65 /min 60-April 07 12:31am Respiratory rate 18 /min 06-19April 07, 2 019 12:31am Oxygen saturation by 95 % 95-100 March Pulse oximetry 6:54pm BP Systolic 105 mm[Hg] 110-140 April 07 12:31am BP Diastolic 72 mm[Hg] 60-90 April 07 12:31am BMI (Body Mass Index) 26.6 kg/m2 April 062018 6:36pm Height 173 cm April 30 5:31am Weight 88.90 kg April 30 5:31am Body Temperature 97.9 [degF] 97.6-99.6 May 01, 2 019 8:00am Heart Rate 90 /min 60-May 01 9:49am Respiratory rate 19 /min 06-19May 01, 2 019 8:00am Oxygen saturation by 98 % 95-100 April Pulse oximetry 8:00am BP Systolic 121 mm[Hg] 110-140 May 01 8:00am BP Diastolic 73 mm[Hg] 60-90 May 01 8:00am BMI (Body Mass Index) 29.7 kg/m2 April 302018 5:31am Inhaled oxygen 28 % November 4th, 20 19 concentration 6:08am Height 173 cm May 10 1:25pm Weight 79.63 kg May 10 1:25pm Body Temperature 98.0 [degF] 97.6-99.6 May 10, 2019 11:34am Heart Rate 77 /min 60-90 May 10 11:34am Respiratory rate 18 /min 12-24 May 10, 2019 11:34am Oxygen saturation by 99 % 95-100 May 102018 Pulse oximetry 11:34am BP Systolic 95 mm[Hg] 110-140 May 10 11:34am BP Diastolic 45 mm[Hg] 60-90 May 10 019 11:34am BMI (Body Mass Index) 26.6 kg/m2 April 272018 1:25pm
[2019-05-11 06:34] LABS: Basophils % 0.2 % (0.1-2.0); Eosinophils # 0.1 K/mm3 (0.0-0.4); Eosinophils % 0.7 % (0.1-12.0); Hematocrit 31.8 % (42.0-52.0); Hemoglobin 9.8 g/dL (14.1-18.0); Lymphocytes % 6.8 % (10-50); Mean Corpuscular HGB Conc 30.8 g/dL (31.8-35.4); Mean Corpuscular Volume 89.6 fl (80-94); Mean Platelet Volume 9.3 fl (7.4-10.4); Monocytes # 1.3 K/mm3 (0.1-1.0); Monocytes % 9.5 % (1.7-9.3); Neutrophils # 11.6 K/mm3 (1.8-7.8); Neutrophils % 82.8 % (37.0-80.0); Platelet Count 263 K/mm3 (142-424); Red Blood Count 3.55 M/mm3 (4.60-6.20); Red Cell Distribution Width 18.2 % (11.5-17.5); White Blood Count 14.1 K/mm3 (4.8-10.8)
[2019-05-11 06:39] LABS: Anion Gap 6.7 mEq/L (5-15); Calcium 7.9 mg/dL (8.5-10.1)
--- NOTE | 2019-05-11 07:03 | Progress Note ---
Internal Medicine - PN: Subj *Date: 05/11/19 *Time: 07:00 Interval history: Patient reports feeling slightly better but still rather tired. He is most concerned about his lack of bowel movement over the last 24 hours. I have spoken with his nurse and while home medicines were ordered apparently through some system air his medicines were not intended to start until today. Patient will be given his Metamucil this morning. He denies shortness of breath or cough. Prior to this admission patient had had an overnight oximetry that did reveal significant desaturations at night so he will begin wearing oxygen at night and on an as-needed basis during the day. He did participate with physi samir therapy yesterday. Exam Vital signs and Labs for Last 24 Hours: Temp Pulse Resp BP Pulse Ox 98.4 F 62 18 113/59 L 99 05/11/19 04:00 05/11/19 04:00 05/11/19 04:00 05/11/19 04:00 05/11/19 04:00 Laboratory Results - last 24 hr 05/10/19 08:30: WBC 14.9 H, RBC 3.63 L, Hgb 10.1 L, Hct 32.6 L, MCV 89.6, MCH 27.9, MCHC 31.2 L, RDW 18.3 H, Plt Count 282, MPV 8.9, Neut % (Auto) 88.0 H, Lymph % (Auto) 4.8 L, [place] % (Auto) 6.0, Eos % (Auto) 0.9, Baso % (Auto) 0.3, Neut # (Auto) 13.1 H, Lymph # (Auto) 0.7, [place] # (Auto) 0.9, Eos # (Auto) 0.1, Baso # (Auto) 0.1, Total Counted 100, Neutrophils % (Manual) 84 H, Lymphocytes % (Manual) 8 L, Monocytes % (Manual) 7, Eosinophils % (Manual) 1, Platelet Estimate Normal, Poikilocytosis 1+, Anisocytosis 1+, Stomatocytes 1+, Acanthocytes (Spur) 1+ 05/10/19 08:30: Sodium 134 L, Potassium 4.0, Chloride 97 L, Carbon Dioxide 29, Anion Gap 12.0, BUN 46 H, Creatinine 1.72 H, Estimated Creat Clear 42, Estimated GFR 39 L, Est GFR ( Amer) 47 L, Glucose 112 H D, Calcium 8.0 L 05/11/19 06:05: WBC 14.1 H, RBC 3.55 L, Hgb 9.8 L, Hct 31.8 L, MCV 89.6, MCH 27.6, MCHC 30.8 L, RDW 18.2 H, Plt Count 263, MPV 9.3, Neut % (Auto) 82.8 H, Lymph % (Auto) 6.8 L, [place]field % (Auto) 9.5 H, Eos % (Auto) 0.7, Baso % (Auto) 0.2, Neut # (Auto) 11.6 H, Lymph # (Auto) 1.0, [place] # (Auto) 1.3 H, Eos # (Auto) 0.1, Baso # (Auto) 0.0 05/11/19 06:05: Sodium 134 L, Potassium 3.7, Chloride 99, Carbon Dioxide 32, Anion Gap 6.7, BUN 45 H, Creatinine 1.74 H, Estimated Creat Clear 42, Estimated GFR 38 L, Est GFR ( Amer) 47 L, Glucose 106, Calcium 7.9 L I & O for Last 24 hours: Intake & Output 05/08/19 05/09/19 05/10/19 05/11/19 11:59 11:59 11:59 11:59 Intake Total 270 / 270 1200 / 1200 Output Total 650 / 650 1400 / 1400 Balance -380 / -380 -200 / -200 Weight 175 lb 9 oz 179 lb 3 oz Microbiology Reports for the Last 24 Hours: Microbiology 05/09/19 17:35 Blood Blood Culture - Preliminary 05/09/19 17:35 Blood Blood Culture - Preliminary 05/09/19 18:30 Urine,Catheterized Urine Culture - Preliminary NO GROWTH AFTER 24 HOURS 05/09/19 21:45 Sputum - Expectorated Sputum Gram Stain - Final 05/09/19 21:45 Sputum - Expectorated Sputum Sputum Culture - Final Narrative: Patient does not appear in any distress. Oropharynx is moist. Neck has no lymphadenopathy. Lungs have improved aeration in the bases with dry crackles at the left base. Heart has a regular rate and rhythm. Abdomen is soft, nontender, nondistended. Quigley catheter is in place. Patient's blood cultures are growing Nicolasa glabrata Assessment and Plan (1) Fungemia Current visit: Yes Status: Acute Category: Medical Code(s): B49 - Unspecified mycosis (2) Sepsis Problem details: She was considered septic on admission and was treated as such with broad-spectrum antibiotic and fluid resuscitation. Blood cultures were negative except for 1 anaerobic culture that grew staph epidermidis and this was considered a contaminant. While patient had fever upon presentation to the hospital he did not have any subsequent fevers after admission Current visit: Yes Status: Acute Qualifiers: Sepsis type: sepsis due to unspecified organism Sepsis acute organ dysfunction status: without acute organ dysfunction Qualified Code(s): A41.9 - Sepsis, unspecified organism Category: Medical Code(s): A41.9 - Sepsis, unspecified organism (3) Diabetes mellitus Current visit: Yes Status: Acute Category: Medical Code(s): E11.9 - Type 2 diabetes mellitus without complications (4) UTI (urinary tract infection) Current visit: No Status: Acute Qualifiers: Urinary tract infection type: site unspecified Hematuria presence: without hematuria Qualified Code(s): N39.0 - Urinary tract infection, site not specified Category: Medical Code(s): N39.0 - Urinary tract infection, site not specified (5) BPH (benign prostatic hyperplasia) Current visit: No Status: Chronic Category: Medical Code(s): N40.0 - Benign prostatic hyperplasia without lower urinary tract symptoms (6) CAD (coronary artery disease) Current visit: No Status: Chronic Qualifiers: Coronary Disease-Associated Artery/Lesion type: [place] artery [place] vs. transplanted heart: [place] heart Associated angina: without angina Qualified Code(s): I25.10 - Atherosclerotic heart disease of [place] coronary artery without angina pectoris Category: Medical Code(s): I25.10 - Atherosclerotic heart disease of [place] coronary artery without angina pectoris (7) COPD (chronic obstructive pulmonary disease) Problem details: Patient has underlying COPD. He was started on prednisone 20 mg daily midway through hospitalization due to mild wheezing along with breathing treatments. Current visit: No Status: Chronic Qualifiers: COPD type: emphysema Category: Medical Code(s): J44.9 - Chronic obstructive pulmonary disease, unspecified (8) Chronic kidney disease Current visit: No Status: Chronic Category: Medical Code(s): N18.9 - Chronic kidney disease, unspecified (9) Chronic mesenteric ischemia Problem details: Patient has chronic mesenteric ischemia which did not cause any symptoms during hospitalization. He will be following with [facility] as an outpatient Current visit: No Status: Chronic Category: Medical Code(s): K55.1 - Chronic vascular disorders of intestine (10) Left ventricular thrombus Problem details: Patient was also diagnosed as having a left ventricular thrombus at his hospitalization at the [facility]. He was started on Eliquis for this. During his hospitalization patient developed blood in his urine as well as frequent bleeding from around his PICC line. Eliquis was discontinued temporarily in favor of subcutaneous Lovenox. Discussion was had with the family about the importance of patient being on anticoagulant although this also increases his risk of bleeding and the patient does bruise rather easily even prior to use of anticoagulants. We opted to proceed with Eliquis 2.5 mg twice daily. Current visit: No Status: Chronic Category: Medical Code(s): I51.3 - Intracardiac thrombosis, not elsewhere classified (11) Urinary retention Problem details: Patient had a Quigley catheter on admission and this was continued during hospitalization not only due to his urinary retention and long history of incomplete bladder emptying but also because of the penile and scrotal edema that the patient had. Consideration was given to discontinuation of the catheter when patient developed bleeding but family preferred state and. Current visit: No Status: Chronic Category: Medical Code(s): R33.9 - Retention of urine, unspecified (12) Infection due to Nicolasa glabrata Current visit: Yes Status: Acute Category: Medical Code(s): B37.9 - Candidiasis, unspecified (13) Anemia in chronic kidney disease (CKD) Current visit: Yes Status: Acute Category: Medical Code(s): N18.9 - Chronic kidney disease, unspecified; D63.1 - Anemia in chronic kidney disease - Assessment and plan all Dx Assessment and Plan for all problems:: 1. Start oral fluconazole with a loading dose of 800 mg today followed by 400 mg daily for his candidemia 2. Restart patient's home bowel regimen 3. Patient encouraged to ambulate.
[2019-05-12 07:27] LABS: Basophils % 0.3 % (0.1-2.0); Eosinophils # 0.1 K/mm3 (0.0-0.4); Eosinophils % 0.3 % (0.1-12.0); Hematocrit 35.6 % (42.0-52.0); Hemoglobin 10.7 g/dL (14.1-18.0); Lymphocytes % 6.7 % (10-50); Mean Corpuscular HGB Conc 30.2 g/dL (31.8-35.4); Mean Platelet Volume 9.2 fl (7.4-10.4); Monocytes # 1.3 K/mm3 (0.1-1.0); Neutrophils # 12.4 K/mm3 (1.8-7.8); Neutrophils % 83.7 % (37.0-80.0); Platelet Count 265 K/mm3 (142-424); Red Blood Count 3.91 M/mm3 (4.60-6.20); Red Cell Distribution Width 18.3 % (11.5-17.5); White Blood Count 14.8 K/mm3 (4.8-10.8)
--- NOTE | 2019-05-12 07:28 | Progress Note ---
Internal Medicine - PN: Subj *Date: 05/12/19 *Time: 07:25 Interval history: Patient has no complaints this morning. He is a little frustrated by the irregularity of his bowel movements and we finally have him on his regular bowel regimen. He denies significant shortness of breath and has remained appropriate on room air, even overnight. He has not had any fevers. PICC line was pulled yesterday so the PICC line tip could be cultured. We also learned that both sets of blood cultures had been drawn through his PICC line Exam Vital signs and Labs for Last 24 Hours: Temp Pulse Resp BP Pulse Ox 97.6 F 88 18 128/73 92 L 05/12/19 04:00 05/12/19 04:00 05/12/19 04:00 05/12/19 04:00 05/12/19 04:00 I & O for Last 24 hours: Intake & Output 05/09/19 05/10/19 05/11/19 05/12/19 11:59 11:59 11:59 11:59 Intake Total 270 / 270 1200 / 1200 640 / 640 Output Total 650 / 650 1640 / 1640 Balance -380 / -380 -440 / -440 640 / 640 Weight 175 lb 9 oz 179 lb 3 oz 179 lb 2 oz Microbiology Reports for the Last 24 Hours: Microbiology 05/09/19 18:30 Urine,Catheterized Urine Culture - Preliminary 05/09/19 17:35 Blood Blood Culture - Preliminary 05/09/19 17:35 Blood Blood Culture - Preliminary Narrative: Patient is resting comfortably and looks a little more alert this morning. Oropharynx is moist. Lungs have fair aeration with dry crackles at the left base. Heart has an irregular rate and rhythm. Abdomen is soft with mild distention but no tenderness to palpation. Bowel sounds are present. He continues to have edema below the knees in both legs. Quigley catheter is anchored. Assessment and Plan (1) Fungemia Current visit: Yes Status: Acute Category: Medical Code(s): B49 - Unspecified mycosis (2) Sepsis Current visit: Yes Status: Acute Qualifiers: Sepsis type: Nicolasa Sepsis acute organ dysfunction status: without acute organ dysfunction Qualified Code(s): B37.7 - [place] sepsis; R65.20 - Severe sepsis without septic shock Category: Medical Code(s): A41.9 - Sepsis, unspecified organism (3) Diabetes mellitus Current visit: Yes Status: Acute Category: Medical Code(s): E11.9 - Type 2 diabetes mellitus without complications (4) UTI (urinary tract infection) Current visit: No Status: Ruled-out Qualifiers: Urinary tract infection type: site unspecified Hematuria presence: without hematuria Qualified Code(s): N39.0 - Urinary tract infection, site not specified Category: Medical Code(s): N39.0 - Urinary tract infection, site not specified (5) BPH (benign prostatic hyperplasia) Current visit: No Status: Chronic Category: Medical Code(s): N40.0 - Benign prostatic hyperplasia without lower urinary tract symptoms (6) CAD (coronary artery disease) Current visit: No Status: Chronic Qualifiers: Coronary Disease-Associated Artery/Lesion type: [place] artery [place] vs. transplanted heart: [place] heart Associated angina: without angina Qualified Code(s): I25.10 - Atherosclerotic heart disease of [place] coronary artery without angina pectoris Category: Medical Code(s): I25.10 - Atherosclerotic heart disease of [place] coronary artery without angina pectoris (7) COPD (chronic obstructive pulmonary disease) Problem details: Patient has underlying COPD. He was started on prednisone 20 mg daily midway through hospitalization due to mild wheezing along with breathing treatments. Current visit: No Status: Chronic Qualifiers: COPD type: emphysema Category: Medical Code(s): J44.9 - Chronic obstructive pulmonary disease, unspecified (8) Chronic kidney disease Current visit: No Status: Chronic Category: Medical Code(s): N18.9 - Chronic kidney disease, unspecified (9) Chronic mesenteric ischemia Problem details: Patient has chronic mesenteric ischemia which did not cause any symptoms during hospitalization. He will be following with [facility] as an outpatient Current visit: No Status: Chronic Category: Medical Code(s): K55.1 - Chronic vascular disorders of intestine (10) Left ventricular thrombus Problem details: Patient was also diagnosed as having a left ventricular thrombus at his hospitalization at the [facility]. He was started on Eliquis for this. During his hospitalization patient developed blood in his urine as well as frequent bleeding from around his PICC line. Eliquis was discontinued temporarily in favor of subcutaneous Lovenox. Discussion was had with the family about the importance of patient being on anticoagulant although this also increases his risk of bleeding and the patient does bruise rather easily even prior to use of anticoagulants. We opted to proceed with Eliquis 2.5 mg twice daily. Current visit: No Status: Chronic Category: Medical Code(s): I51.3 - Intracardiac thrombosis, not elsewhere classified (11) Urinary retention Problem details: Patient had a Quigley catheter on admission and this was continued during hospitalization not only due to his urinary retention and long history of incomplete bladder emptying but also because of the penile and scrotal edema that the patient had. Consideration was given to discontinuation of the catheter when patient developed bleeding but family preferred state and. Current visit: No Status: Chronic Category: Medical Code(s): R33.9 - Retention of urine, unspecified (12) Infection due to Nicolasa glabrata Current visit: Yes Status: Acute Category: Medical Code(s): B37.9 - Candidiasis, unspecified (13) Anemia in chronic kidney disease (CKD) Current visit: Yes Status: Acute Category: Medical Code(s): N18.9 - Chronic kidney disease, unspecified; D63.1 - Anemia in chronic kidney disease - Assessment and plan all Dx Assessment and Plan for all problems:: Patient will start micafungin 100 mg IV daily today. I spoke with [facility] infectious disease service yesterday regarding patient's positive blood cultures for Nicolasa, with likely Nicolasa glabrata infection. This is the regimen that was recommended. Patient will start antifungal today and blood cultures will be drawn again tomorrow afternoon. As below the blood cultures were drawn through the PICC line it is likely that the PICC line is the source of infection and the PICC line tip has been sent for culture. [facility] infectious disease also recommended echocardiogram which will be performed on Tuesday to rule out endocarditis. As blood cultures are negative for bacterial infection I will discontinue patient's Levaquin.
[2019-05-12 07:37] LABS: Anion Gap 9.7 mEq/L (5-15)
[2019-05-12 07:38] LABS: Calcium 8.6 mg/dL (8.5-10.1)
[2019-05-13 07:53] LABS: Basophils % 0.3 % (0.1-2.0); Eosinophils % 0.3 % (0.1-12.0); Hematocrit 33.9 % (42.0-52.0); Lymphocytes # 1.2 K/mm3 (0.7-4.5); Lymphocytes % 9.8 % (10-50); Mean Corpuscular HGB Conc 29.4 g/dL (31.8-35.4); Mean Corpuscular Volume 93.3 fl (80-94); Mean Platelet Volume 9.7 fl (7.4-10.4); Monocytes # 1.3 K/mm3 (0.1-1.0); Monocytes % 10.8 % (1.7-9.3); Neutrophils # 9.7 K/mm3 (1.8-7.8); Neutrophils % 78.8 % (37.0-80.0); Platelet Count 229 K/mm3 (142-424); Red Blood Count 3.64 M/mm3 (4.60-6.20); Red Cell Distribution Width 18.4 % (11.5-17.5); White Blood Count 12.3 K/mm3 (4.8-10.8)
[2019-05-13 08:01] LABS: Anion Gap 10.9 mEq/L (5-15); Calcium 8.4 mg/dL (8.5-10.1)
--- NOTE | 2019-05-13 08:41 | Progress Note ---
Internal Medicine - PN: Subj *Date: 05/13/19 *Time: 09:09 Interval history: Patient has no complaints this morning. Remains afebrile. Tolerating PO intake. He denies significant shortness of breath and has remained appropriate on room air, even overnight. - denies CP, SOA, N/V Exam Vital signs and Labs for Last 24 Hours: Temp Pulse Resp BP Pulse Ox 97.9 F 69 18 113/74 100 05/13/19 04:00 05/13/19 04:00 05/13/19 04:00 05/13/19 04:00 05/13/19 04:00 Laboratory Results - last 24 hr 05/13/19 06:40: WBC 12.3 H, RBC 3.64 L, Hgb 10.0 L, Hct 33.9 L, MCV 93.3, MCH 27.4, MCHC 29.4 L, RDW 18.4 H, Plt Count 229, MPV 9.7, Neut % (Auto) 78.8, Lymph % (Auto) 9.8 L, [place] % (Auto) 10.8 H, Eos % (Auto) 0.3, Baso % (Auto) 0.3, Neut # (Auto) 9.7 H, Lymph # (Auto) 1.2, [place] # (Auto) 1.3 H, Eos # (Auto) 0.0, Baso # (Auto) 0.0 05/13/19 06:40: Sodium 133 L, Potassium 3.9, Chloride 97 L, Carbon Dioxide 29, Anion Gap 10.9, BUN 48 H, Creatinine 1.90 H, Estimated Creat Clear 38, Estimated GFR 35 L, Est GFR ( Amer) 42 L, Glucose 145 H, Calcium 8.4 L I & O for Last 24 hours: Intake & Output 05/10/19 05/11/19 05/12/19 05/13/19 23:59 23:59 23:59 23:59 Intake Total 1200 / 1200 1470 / 1470 Output Total 1350 / 1350 940 / 940 800 / 800 375 / 375 Balance -150 / -150 -930 / -930 670 / 670 -375 / -375 Weight 79.634 kg 81.278 kg 81.25 kg 80.484 kg Microbiology Reports for the Last 24 Hours: Microbiology 05/09/19 17:35 Blood Blood Culture - Preliminary 05/09/19 17:35 Blood Blood Culture - Preliminary Yeast 05/11/19 15:30 Catheter Tip - Other Catheter Tip Culture - Preliminary NO GROWTH AFTER 24 HOURS 05/09/19 18:30 Urine,Catheterized Urine Culture - Preliminary Yeast 05/09/19 17:35 Blood - Final Not Reportable 05/09/19 17:35 Blood - Final Not Reportable 05/09/19 17:35 Blood - Final Not Reportable 05/09/19 17:35 Blood - Final Not Reportable 05/09/19 17:35 Blood - Final Not Reportable Narrative: No acute distress in room air in bed this morning. Alert and oriented to person and place Oropharynx moist, [place]. Lungs with good air movement bilaterally, some faint crackles at bases. Irregularly irregular rhythm, no murmurs. Abdomen soft, nontender, bowel sounds active Continues to have 3+ pitting edema below the knees in both legs. Quigley catheter is anchored No focal neurologic deficits. Strength equal bilaterally Assessment and Plan (1) Fungemia Current visit: Yes Status: Acute Category: Medical Code(s): B49 - Unspecified mycosis (2) Sepsis Current visit: Yes Status: Acute Qualifiers: Sepsis type: Nicolasa Sepsis acute organ dysfunction status: without acute organ dysfunction Qualified Code(s): B37.7 - Candidal sepsis; R65.20 - Severe sepsis without septic shock Category: Medical Code(s): A41.9 - Sepsis, unspecified organism (3) Diabetes mellitus Current visit: Yes Status: Acute Category: Medical Code(s): E11.9 - Type 2 diabetes mellitus without complications (4) UTI (urinary tract infection) Current visit: No Status: Ruled-out Qualifiers: Urinary tract infection type: site unspecified Hematuria presence: without hematuria Qualified Code(s): N39.0 - Urinary tract infection, site not specified Category: Medical Code(s): N39.0 - Urinary tract infection, site not specified (5) BPH (benign prostatic hyperplasia) Current visit: No Status: Chronic Category: Medical Code(s): N40.0 - Benign prostatic hyperplasia without lower urinary tract symptoms (6) CAD (coronary artery disease) Current visit: No Status: Chronic Qualifiers: Coronary Disease-Associated Artery/Lesion type: [place] artery [place] vs. transplanted heart: [place] heart Associated angina: without angina Qualified Code(s): I25.10 - Atherosclerotic heart disease of [place] coronary artery without angina pectoris Category: Medical Code(s): I25.10 - Atherosclerotic heart disease of [place] coronary artery without angina pectoris (7) COPD (chronic obstructive pulmonary disease) Problem details: Patient has underlying COPD. He was started on prednisone 20 mg daily midway through hospitalization due to mild wheezing along with breathing treatments. Current visit: No Status: Chronic Qualifiers: COPD type: emphysema Category: Medical Code(s): J44.9 - Chronic obstructive pulmonary disease, unspecified (8) Chronic kidney disease Current visit: No Status: Chronic Category: Medical Code(s): N18.9 - Chronic kidney disease, unspecified (9) Chronic mesenteric ischemia Problem details: Patient has chronic mesenteric ischemia which did not cause any symptoms during hospitalization. He will be following with [facility] as an outpatient Current visit: No Status: Chronic Category: Medical Code(s): K55.1 - Chronic vascular disorders of intestine (10) Left ventricular thrombus Problem details: Patient was also diagnosed as having a left ventricular thrombus at his hospitalization at the [facility]. He was started on Eliquis for this. During his hospitalization patient developed blood in his urine as well as frequent bleeding from around his PICC line. Eliquis was discontinued temporarily in favor of subcutaneous Lovenox. Discussion was had with the family about the importance of patient being on anticoagulant although this also increases his risk of bleeding and the patient does bruise rather easily even prior to use of anticoagulants. We opted to proceed with Eliquis 2.5 mg twice daily. Current visit: No Status: Chronic Category: Medical Code(s): I51.3 - Intracardiac thrombosis, not elsewhere classified (11) Urinary retention Problem details: Patient had a Quigley catheter on admission and this was continued during hospitalization not only due to his urinary retention and long history of incomplete bladder emptying but also because of the penile and scrotal edema that the patient had. Consideration was given to discontinuation of the catheter when patient developed bleeding but family preferred state and. Current visit: No Status: Chronic Category: Medical Code(s): R33.9 - Retention of urine, unspecified (12) Infection due to Nicolasa glabrata Current visit: Yes Status: Acute Category: Medical Code(s): B37.9 - Candidiasis, unspecified (13) Anemia in chronic kidney disease (CKD) Current visit: Yes Status: Acute Category: Medical Code(s): N18.9 - Chronic kidney disease, unspecified; D63.1 - Anemia in chronic kidney disease - Assessment and plan all Dx Assessment and Plan for all problems:: 73-year-old gentleman with fungemia. Initiated on micafungin 100 mg IV daily yesterday. Plan for repeat blood cultures today to assess for clearance after initiating appropriate therapy. Of note blood cultures from initial sample which were drawn from the pick are the only ones positive so far. They have been sent for sensitivities. Repeats yesterday from periphery venous source, negative to date. PICC line tip without positive culture so far. [facility] infectious disease also recommended echocardiogram which will be performed on Tuesday to rule out endocarditis. As blood cultures are negative for bacterial infection, antibiotics discontinued. -As his blood cultures are positive for budding yeast suspicious for Nicolasa, will treat with micafungin. Once repeat blood cultures show clearance and if he remains hemodynamically stable for a week, IDSA recommendations would indicate transitioning to an azole medication (fluconazole or voriconazole) pending speciation and sensitivity. If he remains clinically stable and has no signs of endocarditis, would need 2 weeks of antifungal treatment once blood cultures are clear per IDSA guidelines. (Clin. Prac. Guidelines for Manag. of Candidiasis: 2016 Update by IDSA of [place].) Will need repeat cultures approximately every 48 hours until clearance is established in order to determine time point of clearance for appopriate antifungal duration. Will monitor kidney and liver function in the meantime to assess for stability given medication can be hard on the patient physically. - Of note, Recommend dilated Ophtho exam to look for seeding/metastatic infection in eyes
[2019-05-13 09:48] LABS: Albumin Level 2.3 gm/dL (3.4-5.0); Bilirubin,Direct 0.3 mg/dL (0.0-0.2); Bilirubin,Indirect 0.3 mg/dL (0.0-0.9); Bilirubin,Total 0.6 mg/dL (0.2-1.0); Total Protein,Serum 6.1 gm/dL (6.4-8.2)
[2019-05-14 06:15] LABS: Basophils % 0.4 % (0.1-2.0); Eosinophils # 0.1 K/mm3 (0.0-0.4); Eosinophils % 1.2 % (0.1-12.0); Hematocrit 33.9 % (42.0-52.0); Hemoglobin 10.4 g/dL (14.1-18.0); Lymphocytes # 1.2 K/mm3 (0.7-4.5); Lymphocytes % 11.2 % (10-50); Mean Corpuscular HGB Conc 30.8 g/dL (31.8-35.4); Mean Corpuscular Volume 89.4 fl (80-94); Mean Platelet Volume 9.9 fl (7.4-10.4); Neutrophils # 8.3 K/mm3 (1.8-7.8); Neutrophils % 78.3 % (37.0-80.0); Platelet Count 225 K/mm3 (142-424); Red Blood Count 3.79 M/mm3 (4.60-6.20); Red Cell Distribution Width 18.2 % (11.5-17.5); White Blood Count 10.6 K/mm3 (4.8-10.8)
[2019-05-14 06:26] LABS: Anion Gap 11.6 mEq/L (5-15); Calcium 7.9 mg/dL (8.5-10.1)
--- NOTE | 2019-05-14 07:05 | Progress Note ---
Internal Medicine - PN: Subj *Date: 05/14/19 *Time: 07:03 Interval history: Patient has no complaints this morning. He denies shortness of breath. He is currently in process of having an echocardiogram performed. He denies chest pain. Exam Vital signs and Labs for Last 24 Hours: Temp Pulse Resp BP Pulse Ox 97.5 F L 87 20 121/70 97 05/14/19 04:00 05/14/19 04:00 05/14/19 04:00 05/14/19 04:00 05/14/19 04:00 Laboratory Results - last 24 hr 05/13/19 06:40: WBC 12.3 H, RBC 3.64 L, Hgb 10.0 L, Hct 33.9 L, MCV 93.3, MCH 27.4, MCHC 29.4 L, RDW 18.4 H, Plt Count 229, MPV 9.7, Neut % (Auto) 78.8, Lymph % (Auto) 9.8 L, [place] % (Auto) 10.8 H, Eos % (Auto) 0.3, Baso % (Auto) 0.3, Neut # (Auto) 9.7 H, Lymph # (Auto) 1.2, [place] # (Auto) 1.3 H, Eos # (Auto) 0.0, Baso # (Auto) 0.0 05/13/19 06:40: Sodium 133 L, Potassium 3.9, Chloride 97 L, Carbon Dioxide 29, Anion Gap 10.9, BUN 48 H, Creatinine 1.90 H, Estimated Creat Clear 38, Estimated GFR 35 L, Est GFR ( Amer) 42 L, Glucose 145 H, Calcium 8.4 L 05/13/19 06:40: Total Bilirubin 0.6, Direct Bilirubin 0.3 H, Indirect Bilirubin 0.3, AST 51 H, ALT 75, Alkaline Phosphatase 89, Total Protein 6.1 L, Albumin 2.3 L 05/14/19 05:47: WBC 10.6, RBC 3.79 L, Hgb 10.4 L, Hct 33.9 L, MCV 89.4, MCH 27.6, MCHC 30.8 L, RDW 18.2 H, Plt Count 225, MPV 9.9, Neut % (Auto) 78.3, Lymph % (Auto) 11.2, [place] % (Auto) 9.0, Eos % (Auto) 1.2, Baso % (Auto) 0.4, Neut # (Auto) 8.3 H, Lymph # (Auto) 1.2, [place] # (Auto) 1.0, Eos # (Auto) 0.1, Baso # (Auto) 0.0 05/14/19 05:47: Sodium 136, Potassium 3.6, Chloride 99, Carbon Dioxide 29, Anion Gap 11.6, BUN 46 H, Creatinine 1.82 H, Estimated Creat Clear 40, Estimated GFR 36 L, Est GFR ( Amer) 44 L, Glucose 120 H, Calcium 7.9 L I & O for Last 24 hours: Intake & Output 05/11/19 05/12/19 05/13/19 05/14/19 11:59 11:59 11:59 11:59 Intake Total 1200 / 1200 760 / 760 960 / 960 250 / 250 Output Total 1640 / 1640 1175 / 1175 2315 / 2315 Balance -440 / -440 760 / 760 -215 / -215 -2065 / -2065 Weight 179 lb 3 oz 179 lb 2 oz 177 lb 7 oz 176 lb 3 oz Microbiology Reports for the Last 24 Hours: Microbiology 05/12/19 09:30 Blood Blood Culture - Preliminary 05/11/19 15:30 Catheter Tip - Other Catheter Tip Culture - Preliminary NO GROWTH AFTER 48 HOURS 05/09/19 18:30 Urine,Catheterized Urine Culture - Final Yeast 05/09/19 17:35 Blood Blood Culture - Preliminary 05/09/19 17:35 Blood Blood Culture - Preliminary Yeast Narrative: Patient is awake and alert. Heart has an irregular rate and rhythm. Lungs have clear breath sounds anteriorly with diminished breath sounds at the bases posteriorly. Abdomen is soft and nontender. Extremities are warm to the touch with 3+ edema below the knees bilaterally. Blood culture from May 12 has turned positive for Nicolasa. Blood cultures were repeated yesterday. Urine from admission has also shown yeast. Assessment and Plan (1) Fungemia Current visit: Yes Status: Acute Category: Medical Code(s): B49 - Unspecified mycosis (2) Sepsis Current visit: Yes Status: Acute Qualifiers: Sepsis type: Nicolasa Sepsis acute organ dysfunction status: without acute organ dysfunction Qualified Code(s): B37.7 - Candidal sepsis; R65.20 - Severe sepsis without septic shock Category: Medical Code(s): A41.9 - Sepsis, unspecified organism (3) Diabetes mellitus Current visit: Yes Status: Acute Category: Medical Code(s): E11.9 - Type 2 diabetes mellitus without complications (4) UTI (urinary tract infection) Current visit: No Status: Ruled-out Qualifiers: Urinary tract infection type: site unspecified Hematuria presence: without hematuria Qualified Code(s): N39.0 - Urinary tract infection, site not specified Category: Medical Code(s): N39.0 - Urinary tract infection, site not specified (5) BPH (benign prostatic hyperplasia) Current visit: No Status: Chronic Category: Medical Code(s): N40.0 - Benign prostatic hyperplasia without lower urinary tract symptoms (6) CAD (coronary artery disease) Current visit: No Status: Chronic Qualifiers: Coronary Disease-Associated Artery/Lesion type: [place] artery [place] vs. transplanted heart: [place] heart Associated angina: without angina Qualified Code(s): I25.10 - Atherosclerotic heart disease of [place] coronary artery without angina pectoris Category: Medical Code(s): I25.10 - Atherosclerotic heart disease of [place] coronary artery without angina pectoris (7) COPD (chronic obstructive pulmonary disease) Problem details: Patient has underlying COPD. He was started on prednisone 20 mg daily midway through hospitalization due to mild wheezing along with breathing treatments. Current visit: No Status: Chronic Qualifiers: COPD type: emphysema Category: Medical Code(s): J44.9 - Chronic obstructive pulmonary disease, unspecified (8) Chronic kidney disease Current visit: No Status: Chronic Category: Medical Code(s): N18.9 - Chronic kidney disease, unspecified (9) Chronic mesenteric ischemia Problem details: Patient has chronic mesenteric ischemia which did not cause any symptoms during hospitalization. He will be following with [facility] as an outpatient Current visit: No Status: Chronic Category: Medical Code(s): K55.1 - Chronic vascular disorders of intestine (10) Left ventricular thrombus Problem details: Patient was also diagnosed as having a left ventricular thrombus at his hospitalization at the [facility]. He was started on Eliquis for this. During his hospitalization patient developed blood in his urine as well as frequent bleeding from around his PICC line. Eliquis was discontinued temporarily in favor of subcutaneous Lovenox. Discussion was had with the family about the importance of patient being on anticoagulant although this also increases his risk of bleeding and the patient does bruise rather easily even prior to use of anticoagulants. We opted to proceed with Eliquis 2.5 mg twice daily. Current visit: No Status: Chronic Category: Medical Code(s): I51.3 - Intracardiac thrombosis, not elsewhere classified (11) Urinary retention Problem details: Patient had a Quigley catheter on admission and this was continued during hospitalization not only due to his urinary retention and long history of incomplete bladder emptying but also because of the penile and scrotal edema that the patient had. Consideration was given to discontinuation of the catheter when patient developed bleeding but family preferred state and. Current visit: No Status: Chronic Category: Medical Code(s): R33.9 - Retention of urine, unspecified (12) Infection due to Nicolasa glabrata Current visit: Yes Status: Acute Category: Medical Code(s): B37.9 - Candidiasis, unspecified (13) Anemia in chronic kidney disease (CKD) Current visit: Yes Status: Acute Category: Medical Code(s): N18.9 - Chronic kidney disease, unspecified; D63.1 - Anemia in chronic kidney disease - Assessment and plan all Dx Assessment and Plan for all problems:: 1. Continue IV antifungal until blood cultures have cleared. Plan for repeat blood cultures tomorrow 2. Echocardiogram today to assess for endocarditis 3. We will get ID on yeast in urine
--- NOTE | 2019-05-14 19:46 | Cardiology Report ---
APPROVED REPORT EXAM: Comprehensive 2D, Doppler, and color-flow Echocardiogram Oyster Preparer: Shae Harris CRT Ht: 5 ft 8 in Wt: 179lbs BSA: 1.95 BP: 113/74 mmHg Indications: SEPSIS, REDUCED EF 10-21-19 W/ LV THROMBUS AT [facility]. 2D Dimensions LVOT 2.02 cm (M/F) 1.5-2.5 M-Mode Dimensions RVDd 2.04 cm (0.9-2.6)LVDd 7.36 cm (3.5-5.7) LVDs 6.56 cm (3.5-5.7)IVSd 1.61 cm (0.6-1.1) PWd 0.92 cm (0.6-1.1)EF (Teich) 22.90% FS 10.90% EDV (Teich) 285.90 mL ESV (Teich) 220.50 mL LV Diastology E/A Ratio 1.84 Mitral Valve MV A Velocity 48.00 (40-130 cm/s) Left Ventricle Left atrium is mildly enlarged, left ventricle is normal size, mild concentric left ventricular hypertrophy, there is severely reduced left ventricular systolic function, visually estimated ejection fraction 20 to 25%, left ventricle is globally hypokinetic, a repeat study with Definity contrast is recommended. Diastolic parameters are inconclusive. Right Ventricle Right atrium and right ventricular normal size and contractility. Aortic Valve Aortic valve is minimally thickened and fibrosed there is no aortic stenosis aortic insufficiency. Mitral Valve Mitral valve leaflets are minimally thickened, there is mild mitral regurgitation. Tricuspid Valve Tricuspid valve is grossly normal, there is mild tricuspid regurgitation. Tricuspid regurgitation jet velocity is inadequate for calculation of the right ventricular systolic pressure, Pulmonic Valve Pulmonic valve is poorly visualized. Great Vessels Aortic root is normal size. Pericardium Small pericardial effusion noted. Conclusion 1. Technically difficult study, repeat study with Definity contrast is recommended. 2. Mildly enlarged left atrium, normal left ventricular size, mild concentric left ventricular hypertrophy, severely reduced left ventricular systolic function, visually estimated ejection fraction 20 to 25%, left ventricle is globally hypokinetic. Diastolic parameters are inconclusive. 3. Mild mitral and tricuspid regurgitation 4. Small pericardial effusion noted. Electronically signed by : Yariel Aguilera, 05/14/2019 19:45:50
[2019-05-15 06:52] LABS: Basophils % 0.3 % (0.1-2.0); Eosinophils # 0.2 K/mm3 (0.0-0.4); Eosinophils % 2.2 % (0.1-12.0); Hematocrit 33.9 % (42.0-52.0); Hemoglobin 10.4 g/dL (14.1-18.0); Lymphocytes # 1.1 K/mm3 (0.7-4.5); Lymphocytes % 12.6 % (10-50); Mean Corpuscular HGB Conc 30.7 g/dL (31.8-35.4); Mean Corpuscular Volume 90.5 fl (80-94); Mean Platelet Volume 10.1 fl (7.4-10.4); Monocytes # 0.8 K/mm3 (0.1-1.0); Monocytes % 9.1 % (1.7-9.3); Neutrophils # 6.3 K/mm3 (1.8-7.8); Neutrophils % 75.8 % (37.0-80.0); Platelet Count 194 K/mm3 (142-424); Red Blood Count 3.75 M/mm3 (4.60-6.20); Red Cell Distribution Width 18.2 % (11.5-17.5); White Blood Count 8.3 K/mm3 (4.8-10.8)
--- NOTE | 2019-05-15 07:17 | Progress Note ---
Internal Medicine - PN: Subj *Date: 05/15/19 *Time: 07:15 Interval history: Patient has no complaints this morning. He reports small bowel movement yesterday with significant flatus overnight. He did not have any fevers. Exam Vital signs and Labs for Last 24 Hours: Temp Pulse Resp BP Pulse Ox 97.9 F 64 18 108/52 L 96 05/15/19 04:00 05/15/19 04:00 05/15/19 04:00 05/15/19 04:00 05/15/19 04:00 Laboratory Results - last 24 hr 05/15/19 06:39: WBC 8.3, RBC 3.75 L, Hgb 10.4 L, Hct 33.9 L, MCV 90.5, MCH 27.8, MCHC 30.7 L, RDW 18.2 H, Plt Count 194, MPV 10.1, Neut % (Auto) 75.8, Lymph % (Auto) 12.6, Holt % (Auto) 9.1, Eos % (Auto) 2.2, Baso % (Auto) 0.3, Neut # (Auto) 6.3, Lymph # (Auto) 1.1, Holt # (Auto) 0.8, Eos # (Auto) 0.2, Baso # (Auto) 0.0 I & O for Last 24 hours: Intake & Output 05/12/19 05/13/19 05/14/19 05/15/19 11:59 11:59 11:59 11:59 Intake Total 760 / 760 960 / 960 490 / 490 480 / 480 Output Total 1175 / 1175 2315 / 2315 1450 / 1450 Balance 760 / 760 -215 / -215 -1825 / -1825 -970 / -970 Weight 179 lb 2 oz 177 lb 7 oz 176 lb 3 oz 178 lb Microbiology Reports for the Last 24 Hours: Microbiology 05/09/19 17:35 Urine,Catheterized - Final Not Reportable 05/09/19 17:35 Urine,Catheterized - Final Not Reportable 05/09/19 17:35 Urine,Catheterized - Final Not Reportable 05/09/19 17:35 Urine,Catheterized - Final Not Reportable 05/09/19 17:35 Urine,Catheterized - Final Not Reportable 05/09/19 18:30 Urine,Catheterized Urine Culture - Final Yeast 05/12/19 09:45 Blood Blood Culture - Preliminary NO GROWTH AFTER 48 HOURS 05/11/19 15:30 Catheter Tip - Other Catheter Tip Culture - Preliminary Gram Positive Cocci 05/09/19 17:35 Blood Blood Culture - Preliminary Yeast 05/09/19 17:35 Blood Blood Culture - Preliminary Narrative: Patient is awake and interactive this morning. Heart rate is irregular. Lungs are clear anteriorly with diminished breath sounds at the bases. Abdomen is soft and nontender with active bowel sounds. Quigley catheter remains in place. Edema slightly improved from yesterday but still significant 3+ edema below the knees Assessment and Plan (1) Fungemia Current visit: Yes Status: Acute Category: Medical Code(s): B49 - Unspecified mycosis (2) Sepsis Current visit: Yes Status: Acute Qualifiers: Sepsis type: Nicolasa Sepsis acute organ dysfunction status: without acute organ dysfunction Qualified Code(s): B37.7 - Candidal sepsis; R65.20 - Severe sepsis without septic shock Category: Medical Code(s): A41.9 - Sepsis, unspecified organism (3) Diabetes mellitus Current visit: Yes Status: Acute Category: Medical Code(s): E11.9 - Type 2 diabetes mellitus without complications (4) UTI (urinary tract infection) Current visit: No Status: Ruled-out Qualifiers: Urinary tract infection type: site unspecified Hematuria presence: without hematuria Qualified Code(s): N39.0 - Urinary tract infection, site not specified Category: Medical Code(s): N39.0 - Urinary tract infection, site not specified (5) BPH (benign prostatic hyperplasia) Current visit: No Status: Chronic Category: Medical Code(s): N40.0 - Benign prostatic hyperplasia without lower urinary tract symptoms (6) CAD (coronary artery disease) Current visit: No Status: Chronic Qualifiers: Coronary Disease-Associated Artery/Lesion type: [place] artery [place] vs. transplanted heart: [place] heart Associated angina: without angina Qualified Code(s): I25.10 - Atherosclerotic heart disease of [place] coronary artery without angina pectoris Category: Medical Code(s): I25.10 - Atherosclerotic heart disease of [place] coronary artery without angina pectoris (7) COPD (chronic obstructive pulmonary disease) Problem details: Patient has underlying COPD. He was started on prednisone 20 mg daily midway through hospitalization due to mild wheezing along with breathing treatments. Current visit: No Status: Chronic Qualifiers: COPD type: emphysema Category: Medical Code(s): J44.9 - Chronic obstructive pulmonary disease, unspecified (8) Chronic kidney disease Current visit: No Status: Chronic Category: Medical Code(s): N18.9 - Chronic kidney disease, unspecified (9) Chronic mesenteric ischemia Problem details: Patient has chronic mesenteric ischemia which did not cause any symptoms during hospitalization. He will be following with [facility] as an outpatient Current visit: No Status: Chronic Category: Medical Code(s): K55.1 - Chronic vascular disorders of intestine (10) Left ventricular thrombus Problem details: Patient was also diagnosed as having a left ventricular t hrombus at his hospitalization at the [facility]. He was started on Eliquis for this. During his hospitalization patient developed blood in his urine as well as frequent bleeding from around his PICC line. Eliquis was discontinued temporarily in favor of subcutaneous Lovenox. Discussion was had with the family about the importance of patient being on anticoagulant although this also increases his risk of bleeding and the patient does bruise rather easily even prior to use of anticoagulants. We opted to proceed with Eliquis 2.5 mg twice daily. Current visit: No Status: Chronic Category: Medical Code(s): I51.3 - Intracardiac thrombosis, not elsewhere classified (11) Urinary retention Problem details: Patient had a Quigley catheter on admission and this was continued during hospitalization not only due to his urinary retention and long history of incomplete bladder emptying but also because of the penile and scrotal edema that the patient had. Consideration was given to discontinuation of the catheter when patient developed bleeding but family preferred state and. Current visit: No Status: Chronic Category: Medical Code(s): R33.9 - Retention of urine, unspecified (12) Infection due to Nicolasa glabrata Current visit: Yes Status: Acute Category: Medical Code(s): B37.9 - Candidiasis, unspecified (13) Anemia in chronic kidney disease (CKD) Current visit: Yes Status: Acute Category: Medical Code(s): N18.9 - Chronic kidney disease, unspecified; D63.1 - Anemia in chronic kidney disease - Assessment and plan all Dx Assessment and Plan for all problems:: 1. Repeat blood cultures today. As of now blood cultures from admission are growing Nicolasa glabrata. Blood cultures performed on May 12 are growing Nicolasa glabrata. Blood cultures from May 13 have not been reported. He will have repeat blood cultures today. Continue micafungin intravenously until blood cultures are negative. Original blood cultures have been sent for sensitivities but that could take up to 2 weeks. 2. Continue home medications. Repeat echocardiogram was consistent with echocardiogram from a month ago showing significant LV dysfunction with ejection fraction of 20 to 25%.
[2019-05-15 08:04] LABS: Calcium 7.9 mg/dL (8.5-10.1)
[2019-05-15 08:10] LABS: Bilirubin,Direct 0.2 mg/dL (0.0-0.2); Bilirubin,Indirect 0.3 mg/dL (0.0-0.9); Bilirubin,Total 0.5 mg/dL (0.2-1.0); Total Protein,Serum 5.2 gm/dL (6.4-8.2)
--- NOTE | 2019-05-16 07:13 | Progress Note ---
Internal Medicine - PN: Subj *Date: 05/16/19 *Time: 07:11 Interval history: Patient has no complaints this morning. Nursing staff reports patient has been rather anxious about being discharged. Yesterday evening his blood culture from May 13 returned and has shown no growth after 48 hours. Exam Vital signs and Labs for Last 24 Hours: Temp Pulse Resp BP Pulse Ox 97.9 F 77 17 113/68 100 05/16/19 04:00 05/16/19 04:00 05/16/19 04:00 05/16/19 04:00 05/16/19 04:00 Laboratory Results - last 24 hr 05/15/19 06:39: Sodium 134 L, Potassium 4.0, Chloride 99, Carbon Dioxide 26, Anion Gap 13.0, BUN 47 H, Creatinine 1.62 H, Estimated Creat Clear 45, Estimated GFR 42 L, Est GFR ( Amer) 51 L, Glucose 133 H, Calcium 7.9 L 05/15/19 06:39: Total Bilirubin 0.5, Direct Bilirubin 0.2, Indirect Bilirubin 0.3, AST 53 H, ALT 100 H D, Alkaline Phosphatase 97, Total Protein 5.2 L, Albumin 2.0 L I & O for Last 24 hours: Intake & Output 05/13/19 05/14/19 05/15/19 05/16/19 11:59 11:59 11:59 11:59 Intake Total 960 / 960 490 / 490 720 / 720 780 / 780 Output Total 1175 / 1175 2315 / 2315 1450 / 1450 2400 / 2400 Balance -215 / -215 -1825 / -1825 -730 / -730 -1620 / -1620 Weight 177 lb 7 oz 176 lb 3 oz 178 lb 177 lb 15.984 oz Microbiology Reports for the Last 24 Hours: Microbiology 05/13/19 12:05 Blood Blood Culture - Preliminary NO GROWTH AFTER 48 HOURS 05/13/19 11:55 Blood Blood Culture - Preliminary NO GROWTH AFTER 48 HOURS 05/12/19 09:30 Blood Blood Culture - Preliminary Yeast 05/09/19 17:35 Blood Blood Culture - Final Yeast 05/09/19 17:35 Blood Blood Culture - Final Yeast 05/11/19 15:30 Catheter Tip - Other Catheter Tip Culture - Preliminary Staphylococcus epidermidis Narrative: Patient is awake and alert. Lungs have diminished breath sounds at the bases but are clear anteriorly. Heart has a irregular rate and rhythm. Abdomen is soft and nontender with active bowel sounds. There is 3+ edema from the proximal tibia to the feet Assessment and Plan (1) Fungemia Current visit: Yes Status: Acute Category: Medical Code(s): B49 - Unspecified mycosis (2) Sepsis Current visit: Yes Status: Acute Qualifiers: Sepsis type: Nicolasa Sepsis acute organ dysfunction status: without acute organ dysfunction Qualified Code(s): B37.7 - Candidal sepsis; R65.20 - Severe sepsis without septic shock Category: Medical Code(s): A41.9 - Sepsis, unspecified organism (3) Diabetes mellitus Current visit: Yes Status: Acute Category: Medical Code(s): E11.9 - Type 2 diabetes mellitus without complications (4) UTI (urinary tract infection) Current visit: No Status: Ruled-out Qualifiers: Urinary tract infection type: site unspecified Hematuria presence: without hematuria Qualified Code(s): N39.0 - Urinary tract infection, site not specified Category: Medical Code(s): N39.0 - Urinary tract infection, site not specified (5) BPH (benign prostatic hyperplasia) Current visit: No Status: Chronic Category: Medical Code(s): N40.0 - Benign prostatic hyperplasia without lower urinary tract symptoms (6) CAD (coronary artery disease) Current visit: No Status: Chronic Qualifiers: Coronary Disease-Associated Artery/Lesion type: [place] artery [place] vs. transplanted heart: [place] heart Associated angina: without angina Qualified Code(s): I25.10 - Atherosclerotic heart disease of [place] coronary artery without angina pectoris Category: Medical Code(s): I25.10 - Atherosclerotic heart disease of [place] coronary artery without angina pectoris (7) COPD (chronic obstructive pulmonary disease) Problem details: Patient has underlying COPD. He was started on prednisone 20 mg daily midway through hospitalization due to mild wheezing along with breathing treatments. Current visit: No Status: Chronic Qualifiers: COPD type: emphysema Category: Medical Code(s): J44.9 - Chronic obstructive pulmonary disease, unspecified (8) Chronic kidney disease Current visit: No Status: Chronic Category: Medical Code(s): N18.9 - Chronic kidney disease, unspecified (9) Chronic mesenteric ischemia Problem details: Patient has chronic mesenteric ischemia which did not cause any symptoms during hospitalization. He will be following with [facility] as an outpatient Current visit: No Status: Chronic Category: Medical Code(s): K55.1 - Chronic vascular disorders of intestine (10) Left ventricular thrombus Problem details: Patient was also diagnosed as having a left ventricular thrombus at his hospitalization at the [facility]. He was started on Eliquis for this. During his hospitalization patient developed blood in his urine as well as frequent bleeding from around his PICC line. Eliquis was discontinued temporarily in favor of subcutaneous Lovenox. Discussion was had with the family about the importance of patient being on anticoagulant although this also increases his risk of bleeding and the patient does bruise rather easily even prior to use of anticoagulants. We opted to proceed with Eliquis 2.5 mg twice daily. Current visit: No Status: Chronic Category: Medical Code(s): I51.3 - Intracardiac thrombosis, not elsewhere classified (11) Urinary retention Problem details: Patient had a Quigley catheter on admission and this was continued during hospitalization not only due to his urinary retention and long history of incomplete bladder emptying but also because of the penile and scrotal edema that the patient had. Consideration was given to discontinuation of the catheter when patient developed bleeding but family preferred state and. Current visit: No Status: Chronic Category: Medical Code(s): R33.9 - Retention of urine, unspecified (12) Infection due to Nico[place] glabrata Current visit: Yes Status: Acute Category: Medical Code(s): B37.9 - Candidiasis, unspecified (13) Anemia in chronic kidney disease (CKD) Current visit: Yes Status: Acute Category: Medical Code(s): N18.9 - Chronic kidney disease, unspecified; D63.1 - Anemia in chronic kidney disease (14) Chronic systolic heart failure Current visit: Yes Status: Chronic Category: Medical Code(s): I50.22 - Chronic systolic (congestive) heart failure - Assessment and plan all Dx Assessment and Plan for all problems:: The patient's blood cultures have cleared he can be transitioned to oral antifungals. A prescription for voriconazole has been sent to his pharmacy this morning and we will await and see if this medication is covered by his insurance or whether or not it will require a prior authorization. Patient is a possible discharge for later this afternoon.
--- NOTE | 2019-05-16 07:19 | Discharge Summary ---
General - General Admission date:: 05/09/19 Discharge date: 05/16/19 HPI HPI: 73-year-old male with recent hospitalization for pneumonia return to the emergency department yesterday afternoon because of perceived change in his energy level along with somnolence over the last 2 days. This morning history is taken from the patient himself and he does note that he felt really tired yesterday. He did not feel like participating with home health physical therapy. According to the patient whenever he decided not to participate it was advised that he go to the emergency department. ER note reports that family believes he was having some low-grade fevers but had had a noticeable change in his level of activity and alertness. Patient did have a fever of 102.5 in the emergency department. Work-up was performed. Patient met checklist criteria f or diagnosis of sepsis. His chest x-ray showed improvement in pneumonia for which she was treated for at his prior hospitalization. Urinalysis had 2+ leuk esterase with 20-50 white blood cells. Patient does have a PICC line. As the patient had multiple potential sources of infection patient was covered with broad-spectrum antibiotics in the emergency department and admitted. This morning patient reports that he feels about the same. Hospital Course Hospital Course: Patient was admitted and initially started on broad-spectrum antibiotics. However due to the lack of signs of worsening infection compared to his prior hospitalization antibiotics were adjusted and patient was kept on intravenous Levaquin until blood cultures returned. At around 36 hours patient's blood cultures grew Nicolasa glabrata. At this point decision was made to remove the patient's PICC line. I contacted the [facility] infectious disease service who recommended IV micafungin. The plan was to continue IV micafungin daily until patient showed that blood cultures and cleared of fungal infection. Repeat blood cultures were drawn on May 12 and May 13. Within 36 hours the May 12 blood cultures were also growing Nicolasa glabrata. Urinalysis performed on admission also grew Nicolasa glabrata. Patient's Quigley catheter had been changed on admission to the hospital. On May 15 repeat blood cultures were drawn. The May 13 cultures ultimately came back negative for fungal infection. At this point the plan was to continue oral antifungal for a total of 2 weeks starting from May 13. Patient has complex medical history of LV dysfunction with a left ventricular thrombus. Infectious disease recommended repeating echocardiogram to rule out endocarditis. There were no signs of vegetations on echocardiogram. Ejection fraction remains low at 20 to 25%. There was no sign of a ventricular thrombus. Patient takes Eliquis for the ventricular thrombus as well as history of atrial fibrillation. Because of urinary difficulties Quigley catheter was anchored during hospitalization. He was continued on torsemide during hospitalization. Family was concerned about patient's mental status as he had periods of confusion according the family. I believe this was due to the patient's infection and should improve with time. Decision was made during hospitalization that patient would be a DNR moving forward. Objective Vital signs: Temp Pulse Resp BP Pulse Ox 97.9 F 77 17 113/68 100 05/16/19 04:00 05/16/19 04:00 05/16/19 04:00 05/16/19 04:00 05/16/19 04:00 Results Labs on day of discharge: Labs from last 24 hours 05/15/19 05/15/19 06:39 06:39 Sodium 134 L Potassium 4.0 Chloride 99 Carbon Dioxide 26 Anion Gap 13.0 BUN 47 H Creatinine 1.62 H Estimated Creat Clear 45 Estimated GFR 42 L Est GFR ( Amer) 51 L Glucose 133 H Calcium 7.9 L Total Bilirubin 0.5 Direct Bilirubin 0.2 Indirect Bilirubin 0.3 AST 53 H ALT 100 H D Alkaline Phosphatase 97 Total Protein 5.2 L Albumin 2.0 L Preliminary micro results at discharge 05/13/19 12:05 Blood Culture - Preliminary Blood NO GROWTH AFTER 48 HOURS 05/13/19 11:55 Blood Culture - Preliminary Blood NO GROWTH AFTER 48 HOURS 05/12/19 09:30 Blood Culture - Preliminary Blood Yeast 05/11/19 15:30 Catheter Tip Culture - Preliminary Catheter Tip - Other Staphylococcus epidermidis 05/12/19 09:45 Blood Culture - Preliminary Blood NO GROWTH AFTER 48 HOURS DS: Diagnosis - Discharge Diagnosis (1) Fungemia Status: Acute (2) Sepsis Status: Acute (3) Diabetes mellitus Status: Acute (4) UTI (urinary tract infection) Status: Ruled-out (5) BPH (benign prostatic hyperplasia) Status: Chronic (6) CAD (coronary artery disease) Status: Chronic (7) COPD (chronic obstructive pulmonary disease) Status: Chronic Problem details: Patient has underlying COPD. He was started on prednisone 20 mg daily midway through hospitalization due to mild wheezing along with breathing treatments. (8) Chronic kidney disease Status: Chronic (9) Chronic mesenteric ischemia Status: Chronic Problem details: Patient has chronic mesenteric ischemia which did not cause any symptoms during hospitalization. He will be following with [facility] as an outpatient (10) Left ventricular thrombus Status: Chronic Problem details: Patient was also diagnosed as having a left ventricular thrombus at his hospitalization at the [facility]. He was started on Eliquis for this. During his hospitalization patient developed blood in his urine as well as frequent bleeding from around his PICC line. Eliquis was discontinued temporarily in favor of subcutaneous Lovenox. Discussion was had with the family about the importance of patient being on anticoagulant although this also increases his risk of bleeding and the patient does bruise rather easily even prior to use of anticoagulants. We opted to proceed with Eliquis 2.5 mg twice daily. (11) Urinary retention Status: Chronic Problem details: Patient had a Quigley catheter on admission and this was continued during hospitalization not only due to his urinary retention and long history of incomplete bladder emptying but also because of the penile and scrotal edema that the patient had. Consideration was given to di scontinuation of the catheter when patient developed bleeding but family preferred state and. (12) Infection due to Nicolasa glabrata Status: Acute (13) Anemia in chronic kidney disease (CKD) Status: Acute (14) Chronic systolic heart failure Status: Chronic Discharge Plan - Patient Discharge Instructions ACTIVITY: Continue current activity DIET: continue same diet Patient Instructions: Urinary Tract Infection, Sepsis, DI for Sepsis -- Adult, DI for Altered Mental Status - Follow up Plan Follow up with: Rayshawn Tinsley MD [Primary Care Provider] - 2 days Disposition: Home, Self-Alf Medications: Home Medications Medication Instructions Recorded Confirmed Type Atorvastatin Calcium [Atorvastatin 80 mg PO HS 07/06/17 05/10/19 History 80mg Tab] Cholecalciferol (Vitamin D3) 1,000 unit PO DAILY 07/06/17 05/10/19 History [Vitamin D3 1,000 Unit Cap] Glimepiride 1 mg PO PM 07/06/17 05/10/19 History Sucralfate [Sucralfate 1gm 1 tab PO TID 07/06/17 05/10/19 History Tab] Tamsulosin HCl [Flomax 0.4mg 0.4 mg PO PM 07/06/17 05/10/19 History capsule] levETIRAcetam [Levetiracetam] 250 mg PO BID 07/06/17 05/10/19 History Hydrocodone/Acetaminophen 1 each PO TID 08/06/17 05/10/19 History [Hydrocodone-Acetamin 7.5-325] Albuterol Sulfate [Proair 2 puffs IH Q4HP PRN 04/25/19 05/10/19 History Respiclick] Aspirin [Aspir 81] 81 mg PO DAILY 04/25/19 05/10/19 History Cyclobenzaprine HCl 10 mg PO TID 04/25/19 05/10/19 History [Cyclobenzaprine 10mg Tab] Ipratropium/Albuterol Sulfate 3 ml IH Q4HP PRN 04/25/19 05/10/19 History [Duoneb 3mL neb] Multivitamin [Multi-Vitamin Plain] 1 each PO DAILY 04/25/19 05/10/19 History Pantoprazole Sodium [Protonix 40mg 40 mg PO DAILY 04/25/19 05/10/19 History tablet] Psyllium Husk [Metamucil] 30 ml PO BID 04/25/19 05/10/19 History Sennosides/Docusate Sodium [Senna 1 each PO DAILY 04/25/19 05/10/19 History Plus 8.6-50 mg Tablet] carvediloL [Carvedilol 3.125mg Tab] 3.125 mg PO BID 04/25/19 05/10/19 History guaiFENesin [Mucinex] 1,200 mg PO 1500 04/25/19 05/10/19 History Apixaban [Eliquis 2.5mg tab] 2.5 mg PO BID 05/09/19 05/10/19 History Lisinopril [Lisinopril 2.5mg Tab] 2.5 mg PO DAILY 05/09/19 05/10/19 History Torsemide [Demadex 20mg tablet] 20 mg PO DAILY 05/09/19 05/10/19 History Voriconazole 200 mg PO BID #24 tab 05/16/19 Rx Prescriptions/Medication Reconciliation: New Voriconazole 200 mg PO BID #24 tab Continued Cholecalciferol (Vitamin D3) [Vitamin D3 1,000 Unit Cap] 1,000 unit PO DAILY Tamsulosin HCl [Flomax 0.4mg capsule] 0.4 mg PO PM Sucralfate [Sucralfate 1gm Tab] 1 tab PO TID Glimepiride 1 mg PO PM Atorvastatin Calcium [Atorvastatin 80mg Tab] 80 mg PO HS Hydrocodone/Acetaminophen [Hydrocodone-Acetamin 7.5-325] 1 each PO TID Psyllium Husk [Metamucil] 30 ml PO BID Pantoprazole Sodium [Protonix 40mg tablet] 40 mg PO DAILY Multivitamin [Multi-Vitamin Plain] 1 each PO DAILY carvediloL [Carvedilol 3.125mg Tab] 3.125 mg PO BID Aspirin [Aspir 81] 81 mg PO DAILY Ipratropium/Albuterol Sulfate [Duoneb 3mL neb] 3 ml IH Q4HP PRN PRN Reason: Shortness Of Breath Albuterol Sulfate [Proair Respiclick] 2 puffs IH Q4HP PRN PRN Reason: BREATHING Sennosides/Docusate Sodium [Senna Plus 8.6-50 mg Tablet] 1 each PO DAILY guaiFENesin [Mucinex] 1,200 mg PO 1500 Torsemide [Demadex 20mg tablet] 20 mg PO DAILY Lisinopril [Lisinopril 2.5mg Tab] 2.5 mg PO DAILY Apixaban [Eliquis 2.5mg tab] 2.5 mg PO BID levETIRAcetam [Levetiracetam] 250 mg PO BID Cyclobenzaprine HCl [Cyclobenzaprine 10mg Tab] 10 mg PO TID - Problem Reconciliation Problems Reviewed?: Yes
== END 2019-05-16 16:18 | disposition home or self-care (01) | DRG 314 ==
LOC: 2ND 16:55 → ER 16:55 → 2ND 19:40 → OBSVTOIN 19:40
PROVIDERS: ADMIT Emergency Medicine; ATTEND Family Medicine
CPT/HCPCS: 36415; 70450; 71010; 71045; 80048; 80053; 80076; 81001; 82140; 83605; 83735; 85007; 85025; 87040; 87077; 87086; 87106; 87186; 87205; 87275; 87276; 93005; 93306; 94761; 96365; 96367; 97110; 97116; 97161; 99285; J1956; J2543; J3370